=== PATIENT | female | born 1955 | race Caucasian/White ===

== ENCOUNTER 2018-03-08 12:43 | Observation (INO) | payer OTHER ==
[2018-03-08] MEDS ORDERED: METHYLPREDNISOLONE 125 MG INJ ONE (13:49)
[2018-03-08] MEDS ORDERED: IPRATROPIUM BROM 0.5MG/2.5ML ONE (13:49)
[2018-03-08] MEDS ORDERED: OSELTAMIVIR 75 MG CAP ONE (13:49)
[2018-03-08] MEDS ORDERED: VANCOMYCIN 1 GM/250 ML BAG ONE (13:49)
[2018-03-08] MEDS ORDERED: ALBUTEROL 2.5 MG/3 ML NEB SOL ONE (13:49)
[2018-03-08] MEDS ORDERED: NA CHLORIDE 0.9% 1,000 ML ONE (13:49)
[2018-03-08] MEDS ORDERED: CEFTRIAXONE/SWI 1gm 1 GM/10 ML SYR ONE (13:50)
[2018-03-08 13:51] LABS: Absolute Lymphocytes (CBC) 1.6 K/uL (0.7-4.9); Absolute Monocytes 0.3 K/uL (0.1-1.3); Absolute Neutrophil 1.5 K/uL (1.8-8.0); Basophils % 0.4 % (0-1.3); Eosinophils % 0.5 % (0-4.4); Hematocrit 41.7 % (36.0-45.0); Lymphocytes % 45.9 % (15.3-44.8); MPV 7.9 fL (7.6-11.3); RBC Red Blood Cell Count 4.47 M/uL (3.86-4.86)
[2018-03-08 13:55] LABS: Protime INR 0.95
[2018-03-08 14:08] LABS: ALT/SGPT 46 U/L (12-78); AST/SGOT 44 U/L (15-37); Albumin 3.3 g/dL (3.4-5.0); Alkaline Phosphatase 115 U/L (45-117); BUN Blood Urea Nitrogen 14 mg/dL (7-18); Bicarbonate 28 mmol/L (21-32); Bilirubin Direct 0.3 mg/dL (0-0.2); Bilirubin Total 0.7 mg/dL (0.2-1.0); CKMB Creatine Kinase MB < 1.0 ng/mL (0.3-3.6); Creatine Phosphokinase 19 U/L (26-192); Glucose Level 99 mg/dL (74-106); Lipase 263 U/L (73-393); Magnesium 1.8 mg/dL (1.8-2.4); NT PRO-BNP 331 pg/mL (<125); Protein, Total 8.1 g/dL (6.4-8.2); Sodium Level 141 mmol/L (136-145); Troponin (Emerg Dept Use Only) < 0.02 ng/mL (0.0-0.045)
--- NOTE | 2018-03-08 14:56 | RAD REPORT ---
EXAM DESCRIPTION: RAD - Chest Single View - 03/08/2018 2:50 pm CLINICAL HISTORY: Shortness of breath, chest pain, recent flu diagnosis COMPARISON: April 2016 TECHNIQUE: AP portable chest image was obtained 1441 hours . FINDINGS: No peripheral mass or consolidation seen. No failure findings. Interstitial markings are p rominent, increased over the prior study. This would be consistent with a viral infiltrate in the acu te clinical setting. Progressive fibrosis would be possible as well. Heart size is upper normal to sl ightly enlarged. Vasculature is mildly prominent compared to the the 2017 study. No measurable pleura l effusion and no pneumothorax. No acute bony abnormality seen. No acute aortic findings suspected. IMPRESSION: No focal consolidation or mass to suspect bacterial pneumonia. Interstitial lung disease is present throughout both lung salcedo increased over 2017. This would be c onsistent with the recent viral infiltrate diagnosis.
--- NOTE | 2018-03-08 15:06 | EDPHYS ---
Physician Documentation [facility] Name: Gosia Thornton Age: 62 yrs Sex: Female : 1955 Arrival Date: 03/08/2018 Time: 12:45 Bed 6 Private MD: ED Physician Genny Contreras HPI: 03/08 14:09 This 62 yrs old Female presents to ER via Ambulatory with complaints of ma2 Breathing Difficulty. 14:09 Onset: The symptoms/episode began/occurred suddenly, gradually, 2 day(s) ago. ma2 Associated signs and symptoms: Pertinent negatives:. Associated signs and symptoms: Pertinent positives: productive cough, Pertinent negatives: diaphoresis, dizziness, hemoptysis, nausea. Severity of symptoms: At their worst the symptoms were moderate in the emergency department the symptoms are unchanged. The patient has experienced a previous episode. had + flu 3 days ago takes z-packs, here with worsening sob and cough . Historical: - Allergies: 12:57 Codeine; sv - PMHx: 12:57 Anxiety; chronic hip pain; Depression; Hepatitis C; Kidney stones; RLS; sv - PSHx: 12:57 kidney stone removal; rectum did not open when born; neck surgery; Hysterectomy; sv Cholecystectomy; - Immunization history:: Adult Immunizations up to date. - Social history:: Patient/guardian denies using alcohol, street drugs, The patient lives with family. - Family history:: not pertinent. ROS: 14:09 Constitutional: Negative for fever, chills, and weight loss, Neck: Negative for injury, ma2 pain, and swelling, Cardiovascular: Negative for chest pain, palpitations, and edema, Abdomen/GI: Negative for abdominal pain, nausea, diarrhea, and constipation. 14:09 Respiratory: Positive for cough, dyspnea on exertion, Negative for orthopnea, wheezing. 14:09 All other systems are negative. Exam: 14:09 Constitutional: This is a well developed, well nourished patient who is awake, alert, ma2 and in no acute distress. Neck: Trachea midline, no thyromegaly or masses palpated, and no cervical lymphadenopathy. Supple, full range of motion without nuchal rigidity, or vertebral point tenderness. No Meningismus. Chest/axilla: Normal chest wall appearance and motion. Nontender with no deformity. No lesions are appreciated. Cardiovascular: Regular rate and rhythm with a normal S1 and S2. No gallops, murmurs, or rubs. Normal PMI, no JVD. No pulse deficits. 14:09 Respiratory: moderate respiratory distress is noted, Respirations: labored breathing, Breath sounds: rhonchi, + upper airway congestion. Respiratory rate: 22 Vital Signs: 12:56 BP 168 / 85; Pulse 73; Resp 24; Temp 98.5; Pulse Ox 93% ; Weight 83.91 kg; Height 5 ft. sv 5 in. (165.10 cm); Pain 5/10; 16:51 BP 140 / 71; Pulse 90; Resp 24; Pulse Ox 96% on 2 lpm NC; Pain 4/10; ss 12:56 Body Mass Index 30.79 (83.91 kg, 165.10 cm) sv MDM: 13:17 Patient medically screened. ma2 14:09 Differential diagnosis: Anemia Anxiety Reaction CHF exacerbation, Chronic Obstructive ma2 Pulmonary Disease pneumonia, reactive airway disease. Antibiotic administration: 15:03 Data reviewed: vital signs, nurses notes, radiologic studies. Counseling: I had a ma2 detailed discussion with the patient and/or guardian regarding: the historical points, exam findings, and any diagnostic results supporting the discharge/admit diagnosis, the presence of at least one elevated blood pressure reading (>120/80) during this emergency department visit, the need for further work-up and treatment in the hospital. ED course: discussed with dr. headley . 03/08 13:22 Order name: Blood Culture Adult (2) 03/08 13:22 Order name: BMP; Complete Time: 14:20 03/08 13:22 Order name: CBC with Diff 03/08 13:22 Order name: Ckmb; Complete Time: 14:20 03/08 13:22 Order name: CPK; Complete Time: 14:20 03/08 13:22 Order name: D-Dimer; Complete Time: 14:20 03/08 13:22 Order name: Hepatic Function; Complete Time: 14:20 03/08 13:22 Order name: Lipase; Complete Time: 14:20 03/08 13:22 Order name: Magnesium; Complete Time: 14:20 03/08 13:22 Order name: NT PRO-BNP; Complete Time: 14:20 03/08 13:22 Order name: PT-INR; Complete Time: 14:20 wa2 03/08 13:22 Order name: Ptt, Activated; Complete Time: 14:20 wa2 03/08 13:22 Order name: Troponin (emerg Dept Use Only); Complete Time: 14:20 wa2 03/08 13:22 Order name: XRAY CXR (1 view); Complete Time: 15:02 wa2 03/08 13:58 Order name: Manual Differential EDMS 03/08 16:10 Order name: Basic Metabolic Panel EDMS 03/08 16:10 Order name: Basic Metabolic Panel EDMS 03/08 16:10 Order name: CBC with Automated Diff EDMS 03/08 16:10 Order name: CBC with Automated Diff EDMS 03/08 16:10 Order name: NT PRO-BNP EDTN 03/08 16:10 Order name: NT PRO-BNP [facility] 03/08 16:10 Order name: Troponin I EDTN 03/08 16:11 Order name: Troponin I [facility] 03/08 16:11 Order name: Troponin I [facility] 03/08 13:06 Order name: EKG; Complete Time: 13:06 sv 03/08 13:06 Order name: EKG - Nurse/Tech; Complete Time: 13:57 sv 03/08 13:22 Order name: Cardiac monitoring; Complete Time: 13:52 wa2 03/08 13:22 Order name: IV Saline Lock; Complete Time: 13:53 wa2 03/08 13:22 Order name: Labs collected and sent; Complete Time: 13:53 [facility] 03/08 13:22 Order name: O2 Per Protocol; Complete Time: 13:53 wa2 03/08 13:22 Order name: O2 Sat Monitoring; Complete Time: 13:53 [facility] 03/08 16:10 Order name: Heart Healthy EDTN 03/08 16:10 Order name: EKG Electrocardiogram EDTN 03/08 16:10 Order name: EKG Electrocardiogram EDTN Administered Medications: 13:39 Drug: SOLU-Medrol 125 mg Route: IVP; Site: right antecubital; ss 14:21 Follow up: Response: No adverse reaction ss 13:51 Drug: Albuterol 2.5 mg Route: Inhalation; ss 13:51 Drug: AtroVENT Aerosol 0.5 mg Route: Inhalation; ss 13:51 Drug: Tamiflu 75 mg Route: PO; ss 14:21 Follow up: Response: No adverse reaction ss 13:54 Drug: NS 0.9% 1000 ml Route: IV; Rate: 1 bolus; Site: right antecubital; ss 14:21 Drug: Rocephin 1 grams Route: IV; Rate: calculated rate; Site: right antecubital; ss 15:27 Follow up: IV Status: Completed infusion ss 14:45 Drug: Albuterol 2.5 mg Route: Inhalation; ss 14:45 Drug: vancoMYCIN 1 grams Route: IVPB; Infused Over: 2 hrs; Site: right antecubital; ss 14:46 Drug: Albuterol 2.5 mg {Note: given now per Dr. Dover.} Route: Inhalation; ss 14:46 Drug: AtroVENT Aerosol 0.5 mg Route: Inhalation; ss 14:46 Drug: AtroVENT Aerosol 0.5 mg {Note: administered now per Dr. Dover.} Route: ss Inhalation; Disposition: 03/08/18 15:05 Hospitalization ordered by Moreno Patrick for Observation. Preliminary diagnosis is Chronic obstructive pulmonary disease with (acute) exacerbation. - Bed requested for Telemetry/MedSurg (observation). - Status is Observation. iw - Condition is Stable. - Problem is new. - Symptoms have improved. UTI on Admission? No Signatures: Dispatcher [employer] EDTN Heather Deal Stephanie, RN RN sv Williams, Irene, RN RN iw Smirch, Shelby, RN RN ss Alzahri, Mohammad, MD MD ma2 Corrections: (The following items were deleted from the chart) 14:44 13:36 BLOOD CULTURE*+[id number].LAB.BRZ ordered. [facility] EDTN 16:24 15:05 Hospitalization Ordered by Moreno Patrick MD for Observation. Preliminary diagnosis bd is Chronic obstructive pulmonary disease with (acute) exacerbation. Bed requested for Telemetry/MedSurg (observation). Status is Observation. Condition is Stable. Problem is new. Symptoms have improved. UTI on Admission? No. ma2 17:42 16:24 03/08/2018 15:05 Hospitalization Ordered by Moreno Patrick MD for Observation. iw Preliminary diagnosis is Chronic obstructive pulmonary disease with (acute) exacerbation. Bed requested for Telemetry/MedSurg (observation). Status is Observation. Condition is Stable. Problem is new. Symptoms have improved. UTI on Admission? No. bd
--- NOTE | 2018-03-08 15:06 | ER ---
Nurse's Notes [facility] Name: Gosia Thornton Age: 62 yrs Sex: Female : 1955 Arrival Date: 03/08/2018 Time: 12:45 Bed 6 Private MD: Diagnosis: Chronic obstructive pulmonary disease with (acute) exacerbation Presentation: 03/08 12:55 Presenting complaint: Patient states: SOB and chest pain has increased since Thursday sv when she was dx with influenza, sent home with Tamiflu and Azithromycin. Transition of care: patient was not received from another setting of care. Onset of symptoms was March 05, 2018. Care prior to arrival: None. 12:55 Method Of Arrival: Ambulatory sv 12:55 Acuity: CONCEPCION 3 sv Historical: - Allergies: 12:57 Codeine; sv - PMHx: 12:57 Anxiety; chronic hip pain; Depression; Hepatitis C; Kidney stones; RLS; sv - PSHx: 12:57 kidney stone removal; rectum did not open when born; neck surgery; Hysterectomy; sv Cholecystectomy; - Immunization history:: Adult Immunizations up to date. - Social history:: Patient/guardian denies using alcohol, street drugs, The patient lives with family. - Family history:: not pertinent. Screenin:55 Abuse screen: Denies threats or abuse. Denies injuries from another. Nutritional ss screening: No deficits noted. Tuberculosis screening: Never had TB. Fall Risk None identified. Assessment: 13:15 General: Appears uncomfortable, Behavior is calm, cooperative, Reports feeling ill for ss > 3 days. Pain: Complains of pain in chest, head in entire Pain currently is 6 out of 10 on a pain scale. Quality of pain is described as aching, "tight" Pain began 3-4 days ago Is continuous, Aggravated by coughing. Neuro: Level of Consciousness is awake, alert, obeys commands, Oriented to person, place, time, situation, Speech is normal. Cardiovascular: Heart tones S1 S2 present Capillary refill < 3 seconds is brisk in left fingers Rhythm is sinus rhythm. Respiratory: Reports shortness of breath cough that is hacking, persistent since x 4-5 days Airway is patent Respiratory effort is even, labored, Breath sounds are coarse bilaterally. Breath sounds with wheezes bilaterally. GI: Abdomen is non-distended, Bowel sounds present X 4 quads. Patient currently denies abdominal pain, diarrhea, nausea. : No signs and/or symptoms were reported regarding the genitourinary system. EENT: Oral mucosa is moist. Throat is clear. Derm: Skin is intact, is healthy with good turgor, Skin is dry, Skin is pink, warm \\T\\ dry. normal. Musculoskeletal: Circulation, motion, and sensation intact. Range of motion: intact in all extremities, Swelling absent. 14:15 Reassessment: Patient appears in no apparent distress at this time. Patient and/or ss family updated on plan of care and expected duration. Pain level reassessed. Patient states feeling better. Patient states symptoms have improved. Respiratory: Breath sounds are coarse bilaterally. 15:20 Reassessment: Patient appears in no apparent distress at this time. Patient and/or ss family updated on plan of care and expected duration. Pain level reassessed. Patient is alert, oriented x 3, equal unlabored respirations, skin warm/dry/pink. wheezing has diminished, but still present. Pt is aware of admission to hospital. Awaiting room assignment. Patient states feeling better. Patient states symptoms have improved. 16:20 Reassessment: Patient appears in no apparent distress at this time. No changes from ss previously documented assessment. Patient and/or family updated on plan of care and expected duration. Pain level reassessed. Patient is alert, oriented x 3, equal unlabored respirations, skin warm/dry/pink. Patient states feeling better. 16:50 Reassessment: attempted to call report. Nurse is reportedly busy at the moment and will ss call back momentarily. Vital Signs: 12:56 BP 168 / 85; Pulse 73; Resp 24; Temp 98.5; Pulse Ox 93% ; Weight 83.91 kg; Height 5 ft. sv 5 in. (165.10 cm); Pain 5/10; 16:51 BP 140 / 71; Pulse 90; Resp 24; Pulse Ox 96% on 2 lpm NC; Pain 4/10; ss 12:56 Body Mass Index 30.79 (83.91 kg, 165.10 cm) sv ED Course: 12:45 Patient arrived in ED. mr 12:56 Triage completed. sv 12:57 Arm band placed on. sv 13:09 Kelsea Padilla, WALTER is Primary Nurse. ss 13:13 EKG done, by nuclear medicine chief technologist. reviewed by Genny Contreras MD. at1 13:17 Genny Contreras MD is Attending Physician. ma2 13:30 Inserted saline lock: 22 gauge in right antecubital area, using aseptic technique. ss Blood collected. 13:55 Patient has correct armband on for positive identification. Bed in low position. Call light in reach. voice systems engineer on. Pulse ox on. NIBP on. Warm blanket given. 14:49 X-ray completed. Portable x-ray completed in exam room. Patient tolerated procedure mh1 well. 14:51 XRAY CXR (1 view) In Process Unspecified. EDMS 15:04 Moreno Patrick MD is Hospitalizing Provider. ma2 Administered Medications: 13:39 Drug: SOLU-Medrol 125 mg Route: IVP; Site: right antecubital; ss 14:21 Follow up: Response: No adverse reaction ss 13:51 Drug: Albuterol 2.5 mg Route: Inhalation; ss 13:51 Drug: AtroVENT Aerosol 0.5 mg Route: Inhalation; ss 13:51 Drug: Tamiflu 75 mg Route: PO; ss 14:21 Follow up: Response: No adverse reaction ss 13:54 Drug: NS 0.9% 1000 ml Route: IV; Rate: 1 bolus; Site: right antecubital; ss 14:21 Drug: Rocephin 1 grams Route: IV; Rate: calculated rate; Site: right antecubital; ss 15:27 Follow up: IV Status: Completed infusion ss 14:45 Drug: Albuterol 2.5 mg Route: Inhalation; ss 14:45 Drug: vancoMYCIN 1 grams Route: IVPB; Infused Over: 2 hrs; Site: right antecubital; ss 14:46 Drug: Albuterol 2.5 mg {Note: given now per Dr. Dover.} Route: Inhalation; ss 14:46 Drug: AtroVENT Aerosol 0.5 mg Route: Inhalation; ss 14:46 Drug: AtroVENT Aerosol 0.5 mg {Note: administered now per Dr. Dover.} Route: ss Inhalation; Outcome: 15:05 Decision to Hospitalize by Provider. ma2 17:42 Patient left the ED. iw Signatures: Dispatcher [employer] EDMS Marquita Ferguson RN RN sv Rivera, Mary mr Harvey, Martha mh1 Keri Osman RN RN Kelsea Padilla RN RN ss Jennifer Nails, immigration judge EKG Tat1 Genny Contreras MD MD ma2 Corrections: (The following items were deleted from the chart) 12:58 12:55 Presenting complaint: Patient states: SOB has increased since Thursday when she was sv dx with influenza, sent home with Tamiflu and Azithromycin. sv 15:20 13:15 Respiratory: Reports shortness of breath cough that is hacking, persistent since ss x 4-5 days Airway is patent Respiratory effort is even, labored, Breath sounds are coarse bilaterally. ss
[2018-03-08 15:41] LABS: Blood Morphology Comment NOT SEEN (NOT SEEN); Platelet Estimate ADEQ
[2018-03-08] MEDS ORDERED: ACETAMINOPHEN 500 MG TAB PO PRN (16:06)
[2018-03-08] MEDS: METHYLPREDNISOLONE 40 MG INJ IV SCH (18:40)
[2018-03-08 18:42] VITALS: BMI 30.7
--- NOTE | 2018-03-08 20:49 | EKG ---
Test Date: 2018-03-08 Test Time: 13:02:58 Engineering Research Manager: TARSHA MEASUREMENT RESULTS: Intervals: Rate: 70 CO: 130 QRSD: 88 QT: 400 QTc: 432 [place]: P: 64 CO: 130 QRS: 18 T: 69 INTERPRETIVE STATEMENTS: Sinus rhythm with premature atrial complexes Otherwise normal ECG Compared to ECG 05/05/2016 06:51:45 Atrial premature complex(es) now present Electronically Signed On 03-08-18 20:47:54 HUMAN RESOURCES CLERK by Damian Aguirre
[2018-03-09] MEDS: METHYLPREDNISOLONE 40 MG INJ IV SCH ×3 (00:24→17:06)
[2018-03-09 06:03] LABS: Absolute Lymphocytes (CBC) 0.6 K/uL (0.7-4.9); Absolute Monocytes 0.1 K/uL (0.1-1.3); Absolute Neutrophil 2.6 K/uL (1.8-8.0); Basophils % 0.4 % (0-1.3); Hematocrit 37.5 % (36.0-45.0); Lymphocytes % 18.3 % (15.3-44.8); MPV 7.8 fL (7.6-11.3); Monocytes % 2.5 % (3.3-12.3); RBC Red Blood Cell Count 4.01 M/uL (3.86-4.86)
--- NOTE | 2018-03-09 09:19 | P.HP ---
Certification for Inpatient Patient admitted to: Observation With expected LOS: <2 Midnights Patient will require the following post-hospital care: None Practitioner: I am a practitioner with admitting privileges, knowledge of patient current condition, hospital course, and medical plan of care. Services: Services provided to patient in accordance with Admission requirements found in Title 42 Section 412.3 of the Code of Federal Regulations Patient History Date of Service: 03/09/18 Primary Care Provider: Kelvin Villatoro Reason for admission: Asthma exacerbation secondary to the flu History of Present Illness: Patient of Jessica Villatoro. Was seen in the office on Thursday where she was diagnoised with Influenza type A. Started on tamiflu and zithromax. She was given a breathing treatment in the office. Was feeling better and went home. Unfortunately the patient worsened over the weekend. Went to the ER on Thursday. Was found to be wheezing. Clear chest xray. However worsen interstial markings. She has not been smokings. States she has only smoked 2 packs in her entire life. 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 Was not cleaning this weekend though. She denies nasal congestion. Has been having a non productive cough. Which is worse at night. The patient Has been taking her medications. States she has been having some increased shortness of breath for the past few months. When questioned closely she does agree it is more of a tightness in her chest. She does have a home nebulizer kit. Not a hand held albuterol kit. Allergies codeine Allergy (Verified 05/05/16 08:21) Hives Hydrocodone-Acetaminophen Allergy (Mild, Uncoded 03/08/18 18:33) Itching Home Medications: Azithromycin 250 mg PO DAILY 03/08/18 Buspirone HCl [Buspar] 10 mg PO BID 03/08/18 Losartan Potassium 25 mg PO BID 03/08/18 Meloxicam 15 mg PO DAILY 03/08/18 Oseltamivir [Tamiflu] 75 mg PO DAILY 03/08/18 Paroxetine HCl [Paxil] 20 mg PO DAILY 03/08/18 Ropinirole HCl 1 mg PO TID 03/08/18 Albuterol Sulfate [Ventolin Hfa] 8 gm IH Q8HP PRN #1 [id number] 03/09/18 Prednisone [Sterapred Ds] 10 mg PO BID #9 tab.ds.pk 03/09/18 - Past Medical/Surgical History Diabetic: No -: Restless legs syndrome -: anxiety -: depression -: hip pain (bilateral) -: hep c -: hypertension -: Kidney stone 1994 -: Colostomy in infant - Family History Father -: Heart disease Mother -: Hypertension - Social History Smoking Status: Never smoker Alcohol use: Yes CD- Drugs: Yes Caffeine use: Yes Place of Residence: Home Review of Systems 10-point ROS is otherwise unremarkable Respiratory: Cough, Dry, SOB with Excertion, Wheezing Physical Examination - Vital Signs Temperature: 97.6 F Blood Pressure: 159/72 Pulse: 67 Respirations: 18 Pulse Ox (%): 98 - Physical Exam General: Alert, In no apparent distress HEENT: Atraumatic, PERRLA, Mucous membr. moist/pink, EOMI, Sclerae nonicteric Neck: Supple, 2+ carotid pulse no bruit, No LAD, Without JVD or thyroid abnormality Respiratory: Clear to auscultation bilaterally, Normal air movement Cardiovascular: Regular rate/rhythm, Normal S1 S2 Gastrointestinal: Normal bowel sounds, No tenderness Musculoskeletal: No tenderness Integumentary: No rashes Neurological: Normal gait, Normal speech, Normal strength at 5/5 x4 extr, Normal tone, Normal affect Lymphatics: No axilla or inguinal lymphadenopathy - Studies Laboratory Data (last 24 hrs) 03/08/18 13:30: PT 11.2, INR 0.95, APTT 28.4 03/08/18 13:30: WBC 3.4 L, Hgb 14.0, Hct 41.7, Plt Count 239 03/08/18 13:30: Sodium 141, Potassium 4.0, BUN 14, Creatinine 0.66, Glucose 99, Magnesium 1.8, Total Bilirubin 0.7, AST 44 H, ALT 46, Alkaline Phosphatase 115, Lipase 263 Assessment and Plan - Problems (Diagnosis) (1) Asthma exacerbation Current Visit: Yes Status: Acute Plan: Patient is doing well. No longer wheezing. Will take her off oxygen. If she continues to improve will send her home with oral steroids and albuterol HFA. Have spent 20 min discussing asthma. Proper inhaler technique. to monitor the amount of times she uses the inhaler. Will have her follow up with Kelvin Villatoro. If she needs to use repeatedly we can start her on a advair or symbicort Qualifiers: Asthma severity: moderate Asthma persistence: unspecified Qualified Code( s): J45.901 - Unspecified asthma with (acute) exacerbation (2) Influenza A Current Visit: Yes Status: Acute Plan: Continue the patient home tamiflu. (3) HTN (hypertension) Current Visit: Yes Status: Acute Plan: restart home medications. Adjust as necessary - Advance Directives Does patient have a Living Will: No Does patient have a Durable POA for Healthcare: No - Code Status/Comfort Care Code Status Assessed: Yes Code Status: Full Code Physician Review: Patient Assessed, Agree with Above Assessment and Plan Critical Care: No Time Spent Managing Pts Care (In Minutes): 45
[2018-03-09] MEDS: ASPIRIN EC 81 MG TAB PO SCH (10:41)
[2018-03-09] MEDS: BUSPIRONE HCL 10 MG PO SCH ×2 (11:52→20:36)
[2018-03-09] MEDS: Losartan Potassium 25 MG TABLET PO SCH ×2 (11:53→20:35)
[2018-03-09] MEDS: PAROXETINE HCL 20 MG PO SCH (11:53)
[2018-03-09] MEDS: Azithromycin 250 MG TABLET PO SCH (11:54)
[2018-03-09] MEDS: OSELTAMIVIR 75 MG PO SCH (11:54)
[2018-03-09] MEDS ORDERED: ENOXAPARIN 40 MG/0.4 ML SQ SCH (17:00)
[2018-03-09] MEDS: ALBUTEROL 2.5 MG/3 ML NEB SOL NEB PRN (20:45)
[2018-03-09] MEDS: IPRATROPIUM BROM 0.5MG/2.5ML NEB PRN (20:45)
[2018-03-10] MEDS: METHYLPREDNISOLONE 40 MG INJ IV SCH ×2 (00:39→08:26)
[2018-03-10] MEDS: ALBUTEROL 2.5 MG/3 ML NEB SOL NEB PRN (03:32)
[2018-03-10] MEDS: IPRATROPIUM BROM 0.5MG/2.5ML NEB PRN (03:32)
[2018-03-10] MEDS ORDERED: PANTOPRAZOLE 40MG TABLET PO SCH (06:30)
[2018-03-10] MEDS: ASPIRIN EC 81 MG TAB PO SCH (08:25)
[2018-03-10] MEDS: Azithromycin 250 MG TABLET PO SCH (08:26)
[2018-03-10] MEDS: PAROXETINE HCL 20 MG PO SCH (08:27)
[2018-03-10] MEDS: BUSPIRONE HCL 10 MG PO SCH (08:29)
[2018-03-10] MEDS: OSELTAMIVIR 75 MG PO SCH (08:29)
[2018-03-10] MEDS: Losartan Potassium 25 MG TABLET PO SCH (08:30)
--- NOTE | 2018-03-10 08:51 | P.DS ---
Admission Date: 03/08/18 Discharge Date: 03/10/18 Primary Care Provider: Kelvin Villatoro Disposition: ROUTINE DISCHARGE Reason for Admission: Asthma exacerbation secondary to the flu - Problems (1) Asthma exacerbation Current Visit: Yes Status: Acute Qualifiers: Asthma severity: moderate Asthma persistence: unspecified Qualified Code( s): J45.901 - Unspecified asthma with (acute) exacerbation (2) Influenza A Current Visit: Yes Status: Acute (3) HTN (hypertension) Current Visit: Yes Status: Acute Qualifiers: Hypertension type: essential hypertension Qualified Code(s): I10 - Essential (primary) hypertension Brief History of Present Illness: Patient of Jessica Villatoro. Was seen in the office on Thursday where she was diagnoised with Influenza type A. Started on tamiflu and zithromax. She was given a breathing treatment in the office. Was feeling better and went home. Unfortunately the patient worsened over the weekend. Went to the ER on Thursday. Was found to be wheezing. Clear chest xray. However worsen interstial markings. She has not been smokings. States she has only smoked 2 packs in her entire life. 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 Was not cleaning this weekend though. She denies nasal congestion. Has been having a non productive cough. Which is worse at night. The patient Has been taking her medications. States she has been having some increased shortness of breath for the past few months. When questioned closely she does agree it is more of a tightness in her chest. She does have a home nebulizer kit. Not a hand held albuterol kit. Hospital Course: Patient was admitted. Did well with steroids and breathing treatments. Will discharge home. Has a home nebulizer. Will provide a HFA albuterol with her. Start a tapering dose of prednisone. Follow up in 1-2 weeks with Isabel Villatoro. She needs to monitor her usage of the HFA as this will determine her asthma control. Weather or not she needs mantainence medications. Vital Signs/Physical Exam: Temp Pulse Resp BP Pulse Ox 97.4 F 84 18 117/75 94 03/10/18 04:00 03/10/18 04:00 03/10/18 04:00 03/10/18 04:00 03/10/18 04:00 General: Alert, In no apparent distress HEENT: Atraumatic, PERRLA, EOMI Neck: Supple, JVD not distended Respiratory: Clear to auscultation bilaterally, Normal air movement Cardiovascular: Regular rate/rhythm, Normal S1 S2 Gastrointestinal: Normal bowel sounds, No tenderness Musculoskeletal: No tenderness Integumentary: No rashes Neurological: Normal speech, Normal tone, Normal affect Lymphatics: No axilla or inguinal lymphadenopathy Laboratory Data at Discharge: WBC 3.3 K/uL (4.3-10.9) L 03/09/18 05:50 Hgb 12.7 g/dL (12.0-15.0) 03/09/18 05:50 Hct 37.5 % (36.0-45.0) 03/09/18 05:50 Plt Count 207 K/uL (152-406) 03/09/18 05:50 PT 11.2 SECONDS (9.5-12.5) 03/08/18 13:30 INR 0.95 03/08/18 13:30 APTT 28.4 SECONDS (24.3-36.9) 03/08/18 13:30 Sodium 141 mmol/L (136-145) 03/09/18 05:50 Potassium 5.0 mmol/L (3.5-5.1) 03/09/18 05:50 BUN 17 mg/dL (7-18) 03/09/18 05:50 Creatinine 0.71 mg/dL (0.55-1.3) 03/09/18 05:50 Glucose 146 mg/dL (74-106) H 03/09/18 05:50 Magnesium 1.8 mg/dL (1.8-2.4) 03/08/18 13:30 Total Bilirubin 0.7 mg/dL (0.2-1.0) 03/08/18 13:30 AST 44 U/L (15-37) H 03/08/18 13:30 ALT 46 U/L (12-78) 03/08/18 13:30 Alkaline Phosphatase 115 U/L (45-117) 03/08/18 13:30 Troponin I < 0.02 ng/mL (0.0-0.045) 03/08/18 20:55 Lipase 263 U/L (73-393) 03/08/18 13:30 Home Medications: Azithromycin 250 mg PO DAILY 03/08/18 Buspirone HCl [Buspar] 10 mg PO BID 03/08/18 Losartan Potassium 25 mg PO BID 03/08/18 Meloxicam 15 mg PO DAILY 03/08/18 Oseltamivir [Tamiflu] 75 mg PO DAILY 03/08/18 Paroxetine HCl [Paxil] 20 mg PO DAILY 03/08/18 Ropinirole HCl 1 mg PO TID 03/08/18 Albuterol Sulfate [Ventolin Hfa] 8 gm IH Q8HP PRN #1 hfa.aer.ad 03/09/18 Prednisone [Sterapred Ds] 10 mg PO BID #9 tab.ds.pk 03/09/18 New Medications: Albuterol Sulfate [Ventolin Hfa] 8 gm IH Q8HP PRN #1 hfa.aer.ad PRN Reason: Shortness Of Breath Prednisone [Sterapred Ds] 10 mg PO BID #9 tab.ds.pk Diet: Regular Followup: Jessica Villatoro [employer]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
[2018-03-10 09:40] VITALS: O2SAT 95
[2018-03-10 15:22] VITALS: BP 166/76; TEMP 97.7
== END 2018-03-10 14:39 | disposition home or self-care (01) ==
LOC: ER 12:43 → SUPCPDRO 12:43 → ERHOLD 16:06 → 2ND 17:27
PROVIDERS: ADMIT Internal Medicine; ATTEND Internal Medicine
DX: J45.901 Unspecified asthma with (acute) exacerbation (principal); J09.X2 Influenza due to identified novel influenza A virus with other respiratory manifestations; I10 Essential (primary) hypertension; G25.81 Restless legs syndrome; F32.9 Major depressive disorder, single episode, unspecified
CPT/HCPCS: 36415; 71045; 80048; 80076; 82550; 82553; 83690; 83735; 83880; 84484; 85025; 85379; 85610; 85730; 87040; 93005; 94640; 94760; 96365; 96375; 99285; G0378; J0696; J1650; J2920; J2930; J3370; J7030

== ENCOUNTER 2020-02-27 17:33 | Inpatient (IN) | payer OTHER ==
--- OUTSIDE RECORDS SUMMARY | 2020-02-27 17:35 | XMS REPORT | Clinical Summary ---
:1955 Author Organization [facility] Address [address] [place] [address] Care Team Providers Name Role Phone Tono Luz MD Primary Care Provider Allergies Active Allergy Reactions Severity Noted Date Comments Codeine Swelling 11/30/2019 Medications Medication Sig Dispensed Refills Start Date End Date Status rOPINIRole (REQUIP) 1 Take 1 mg by 0 Active MG tablet mouth 3 (three) times a day. escitalopram (LEXAPRO) Take 20 mg by 0 Active 20 MG tablet mouth nightly. losartan (COZAAR) 50 TAKE 2 TABLETS BY 180 tablet 3 12/08/2019 Active MG tablet MOUTH EVERY DAY Additional Information Patient taking differently: 50 mg oral 2 times daily, Informant: Self, Reported on 12/20/2019 furosemide (LASIX) 20 TAKE 1 TABLET 30 tablet 0 02/02/2020 Active mg tablet BY MOUTH EVERY DAY losartan (COZAAR) 50 Take 50 mg by 0 12/01 Discontinued MG tablet mouth 2 (two) 020 (Reord er) times a day. losartan (COZAAR) 50 Take 2 tablets 60 tablet 6 12/02/2019 Discontinued MG tablet (100 mg total) 020 by mouth daily. chlorthalidone Take 1 tablet 90 tablet 3 12/02/2019 Discontinued (HYGROTEN) 25 MG (25 mg total) 020 (Alternate therapy) tablet by mouth daily for 30 days. HYDROcodone-acetamino Take 1 tablet 40 tablet 0 12/22/201904/04 Discontinued phen (NORCO) 7.5-325 by mouth every 020 mg per 6 (six) hours tabletIndications: as needed for acute pain moderate pain for up to 7 days .acute pain. Max Daily Amount: 4 tablets furosemide (Lasix) 20 Take 1 tablet 30 tablet 0 01/03/202004/04 Discontinued mg tablet (20 mg total) 020 by mouth daily. Active Problems No known active problems Encounters Date Type Specialty Care Team Description 02/22/2020 Telephone Cardiology Norma, Results (Lab Re sults) DILAN Matthews 02/01/2020 Refill Cardiology Amrik Dennis MD 01/03/2020 Office Visit Cardiology Amrik Dennis Essential hyp ertension (Primary Dx); MD Sofiya Mixed hyperlipi demia 01/03/2020 Travel 12/22/2019 Anesthesia Event General Surgery Duane Arthur Chad Edward, MD 12/22/2019 Surgery General Surgery Tono Luz A DEANNA Zhang MD LAPAROSCOPIC VE NTRAL HERNIA WITH MES H 12/22/2019 Hospital Encounter General Surgery Tono Luz MD 12/22/2019 Travel 12/20/2019 Travel 12/20/2019 Orders Only Pre-Admission Vitucci, Pre-op testing Testing [place] (Primary Dx) 12/16/2019 Travel 12/07/2019 Refill Cardiology Amrik Dennis Med Kenan Arriaza MD 12/02/2019 Surgery Procedural Amrik Dennis CV LEFT HEART CATH LV Cardiology MD Sofiya GRAM WITH CORS [[id number] (CPT)] 12/02/2019 Hospital Encounter Procedural Amrik Dennis Chest p jose g Cardiology MD Sofiya unspecified 12/02/2019 Travel 12/01/2019 Hospital Encounter Radiology Tono Luz ed abdominal MD Vicente hernia with obstruction, wi thout gangrene 12/01/2019 Prep for Surgery Cardiology Amrik Dennis MD 12/01/2019 Telephone Cardiology Norma, Scheduling ([facility] DILAN Matthews procedure sched uled) 11/30/2019 Office Visit Cardiology Amrik Dennis Chest pain, u nspecified type (Primary Dx); MD Sofiya Shortness of br eath; Dizziness; Encounter to [facility] 11/30/2019 Prep for Surgery Cardiology Amrik Dennis Chest salena n alondra Arriaza MD breathing (Prim mary Dx) 11/30/2019 Travel 11/28/2019 Travel 11/28/2019 Transcribe Orders Access Tono Luz MD hernia with obstruction, wi thout gangrene (Prima ry Dx) after 02/26/2019 Surgical History Surgery Date Site/Laterality Comments COLOSTOMY many years ago LITHOTRIPSY CARDIAC CATHETERIZATION 12/02/2019 Radial Procedur e: CV LEFT HEART CATH LV GRAM WIT H CORS; Surgeon: Amrik Dennis MD; Locatio n: [facility] FLIGHT KITCHEN MANAGER [facility] E LOCATION; Servi ce: Cardiology; Lat erality: Radial; KIDNEY STONE SURGERY 02/09/1994 - 02/08/1995 ANUS SURGERY during childhood HERNIA REPAIR Medical History Medical History Date Comments Hypertension Depression Restless leg Shortness of breath 2 months ago Sleep apnea 2014 CPAP (continuous positive airway pressure) dependence 2014 Snoring Many years Claustrophobia Anxiety Don t know Rheumatoid arthritis (HCC) 2010 Family History Medical History Relation Name Comments Diabetes Father No Known Problems Maternal Grandfather Breast cancer Maternal Grandmother Atrial fibrillation Mother Heart block Sister Margaux Relation Name Status Comments Father Alive Maternal Grandfather Maternal Grandmother Mother Alive Paternal Grandfather Paternal Grandmother Sister Margaux Social History Tobacco Use Types Packs/Day Years Used Date Never Smoker Smokeless Tobacco: Never Used Alcohol Use Drinks/Week oz/Week Comments Yes 0 Glasses of wine 2.0 2 Cans of beer 0 Shots of liquor 0 Standard drinks or equivalent Alcohol Habits Answer Date Recorded How often do you have a drink containing alcohol? Not asked How many drinks containing alcohol do you have on a typical 1 or 2 11/30/2019 day when you are drinking? How often do you have six or more drinks on one occasion? No t asked Sex Assigned at Date Recorded Not on file Job Start Date Occupation Industry Not on file Not on file Not on file Last Filed Vital Signs Vital Sign Reading Time Taken Comments Blood Pressure 132/63 01/03/2020 1:10 PM EMR TRAINER Pulse 88 01/03/2020 1:10 PM EMR TRAINER Temperature 36.1 C (97 F) 12/22/2019 2:59 PM EMR TRAINER Respiratory Rate 68 12/22/2019 2:59 PM EMR TRAINER Oxygen Saturation 94% 12/22/2019 2:59 PM EMR TRAINER Inhaled Oxygen Concentration - - Weight 94.7 kg (208 lb 12.8 oz) 01/03/2020 1:10 PM EMR TRAINER Height 165.1 cm (5' 5") 01/03/2020 1:10 PM EMR TRAINER Body Mass Index 34.75 01/03/2020 1:10 PM EMR TRAINER Plan of Treatment Date Type Specialty Care Team Description 04/10/2020 [place] [address] [address] [facility] [place] [address] [phone] Health Maintenance Due Date Last Done Comments COVID-19 VACCINE (1 of 2) 1970 CERVICAL CANCER SCREENING 08/20/1975 BREAST CANCER SCREENING 2004 COLONOSCOPY SCREENING 2004 SHINGLES VACCINES (#1) 2004 65+ PNEUMOCOCCAL VACCINE (1 of 1 - PPSV23) 08/20/2019 INFLUENZA VACCINE 09/10/2019 Implants Implanted Type Area Forest Fire Management Officer Device Shelf Model / Identifier Expiration Serial / Date Lot System Fixation Laparo Absorb 30 Fastnr Optifix - [id number] Rony gical N/A: N/A [employer] 04/08/2021 [id number] / Implanted: Qty: 1 on 12/22/2019 at [facility] Implants; / Expanders; [id number] Extenders; Surgical Wires Mesh Hernia Ventralight 4 X 6in Oval - [id number] Surgical N/A: N/A [employer] 07/06/2021 [id number] / Implanted: Qty: 1 on 12/22/2019 at [facility] Mesh or / Tissue [id number] Bar[employer] Plates In Neck Procedures Procedure Name Priority Date/Time Associated Diagnosis Comme nts LIPID PANEL Routine 02/20/2020 8:27 Essential hyper tension Results for this AM EMR TRAINER Mixed hyperlipidemia procedu re are in the results section. IA AN ELECTIVE Routine 12/22/2019 11:52 Results f or this ENDOTRACHEAL AIRWAY AM EMR TRAINER procedur e are in the results section. XI ROBOTIC ASSISTED 12/22/2019 11:26 Other and unspeci fied LAPAROSCOPIC VENTRAL AM EMR TRAINER ventral hernia with HERNIA obstruction, without gangrene Case Notes XI DAVINCI, EST 30 MINS Special Needs XI DAVINCI, EST 30 MINS COVID-19 QUALITATIVE Routine 12/20/2019 12:23 Pre-op testing R esults for this PCR PM EMR TRAINER procedure are i n the results section. CV LEFT HEART CATH LV Routine 12/02/2019 7:59 Chest pain, Re sults for this GRAM WITH CORS AM CDT unspecified procedure are in the results section. LIPID PANEL Routine 12/02/2019 6:14 Results for this AM CDT procedure are i n the results section. ESTIMATED GFR Routine 12/02/2019 6:14 Results fo r this AM CDT procedure are i n the results section. PROTHROMBIN TIME WITH Routine 12/02/2019 6:14 Re sults for this INR AM CDT procedure are i n the results section. PARTIAL THROMBOPLASTIN Routine 12/02/2019 6:14 R esults for this TIME (PTT) AM CDT procedure are i n the results section. HC COMPLETE BLD COUNT Routine 12/02/2019 6:14 Re sults for this W/AUTO DIFF AM CDT procedure are i n the results section. BASIC METABOLIC PANEL Routine 12/02/2019 6:14 Re sults for this AM CDT procedure are i n the results section. ECG 12-LEAD Routine 12/02/2019 5:28 Results for this AM CDT procedure are i n the results section. COVID-19 QUALITATIVE STAT 12/01/2019 11:42 Chest pain on Re sults for this PCR AM CDT breathing procedure are i n the results section. CT ABDOMEN W CONTRAST STAT 12/01/2019 10:52 Unspecified Re sults for this AM CDT abdominal hernia procedure a re in with obstruction, the result s without gangrene section. ESTIMATED GFR Routine 12/01/2019 10:31 Results fo r this AM CDT procedure are i n the results section. POC CREATININE Routine 12/01/2019 10:31 Results f or this AM CDT procedure are i n the results section. ECG 12-LEAD Routine 11/30/2019 1:30 Chest pain, Results for this PM CDT unspecified type procedure are in Shortness of sera ath the results Dizziness section. Encounter to establish care after 02/26/2019 Results Lipid panel (02/20/2020 8:27 AM EMR TRAINER)Only the most recent of2 resultswithin the time period is included. Cholesterol, total 217 (H) <200 mg/dL [facility] [place] HDL cholesterol 65 > OR = 50 [facility] mg/dL [place] Triglycerides 88 <150 mg/dL [facility] [place] LDL cholesterol 133 (H) mg/dL (calc) [facility] calculated Comment: [place] [facility] Reference range: <100 Desirable range <100 mg/dL for primary prevention; <70 mg/dL for patients with CHD or diabetic patients with > or = 2 CHD risk factors. LDL-C is now calculated using the Ashia calculation, which is a validated novel method providi ng better accuracy than the Friedewald equation in the estimation of LDL-C. Sean SNYDER et al. SRIDEVI. 2013;310(19): 8124-9425 (http://education.Breezeworks.TransferGo/faq/BZX527) Cholesterol/HDL 3.3 <5.0 (calc) [facility] Non-HDL cholesterol 152 (H) <130 mg/dL [employer] Comment: (calc) [facility] For patients with diabetes plus 1 major ASCVD risk factor, treating to a non-HDL-C goal of <100 mg/dL (LDL-C of <70 mg/dL) is considered a therapeutic option. Specimen Blood Narrative Performed At FASTING:NO [facility] FASTING: NO Resulting Agency Comment Performing Organization Information: Site ID: [id number] Name: [facility] Address: [address] [place] [id number] Director: Kb Balderas Performing Organization Address City/State/ZIP [place] [address] Airway (12/22/2019 11:52 AM EMR TRAINER) Narrative Performed At Robert Beltran CRNA 12/21 11:52 AM Airway Date/Time: 12/22/2019 11:36 AM Performed by: Robert Beltran CR NA Authorized by: Duane Arthur Location: OR Urgency: Elective Difficult Airway: No Anesthesiologist: Duane Arthur Resident/PROFESSOR OF POULTRY SCIENCE/AA: Robert Beltran ph PROFESSOR OF POULTRY SCIENCE Performed by: resident/PROFESSOR OF POULTRY SCIENCE/AA Preoxygenated with 100% O2: Yes C-spine Precautions Maintained Throughou t: Yes Mask Ventilation: Not attempted (covid precautions) Final Airway Type: Endotracheal airway Final Endotracheal Airway: ETT Cuffed: Yes Technique Used: Direct laryngoscopy Devices/Methods Used in Placement: Int ubating stylet Insertion Site: Oral Blade Type: Bishop Laryngoscope Blade/Videolaryngoscope Pranav de Size: 2 ETT Size (mm): 7.0 Cuff at minimum occlusion pressure: Yes Measured from: Lips ETT to Lips (cm): 21 Placement Verified by: CO2 detection, di rect visualization and equal breath sounds Laryngoscopic view: Grade I - full vie w of glottis Rapid Sequence Induction (RSI): No Modified RSI: No Number of Attempts at Approach: 1 COVID-19 qualitative PCR (12/20/2019 12:23 PM EMR TRAINER)Only the most recent of2 resultswithin the time period is included. Interpretation Negative results do not prec lude 2019-nCoV infection and should not be used as the sole basis for treatment or other patient management decisions. Negative results must be combined with clinical observations, patient history, and epidemiological MANCILLA information. [facility] COVID-19 qualitative Not-Detected Not-Detecte [facility] PCR result d [facility] COVID-19 qualitative See link below for [facility] PCR PDF Lab [facility] ReportComment: Case HOSPITAL Number: [id number] Specimen Nasal swab Performing Organization Address City/State/ZIP Code Phon e Number [facility] DEPARTMENT OF PATHOLOGY AND [address], [place] [address] GENOMIC MEDICINE [facility] [address] [place] [address] [facility] labor expediter procedure (12/02/2019 7:59 AM CDT) Specimen Narrative Performed At This result has an attachment that is no t available. Cardiology Procedure Note [facility] DATE OF PROCEDURE: 12/02/2019 [facility] FLIGHT KITCHEN MANAGER RM 1 INDICATION: Chest pain, unspecified [R07.9] Procedure(s): CV LEFT HEART CATH LV GRAM WITH CORS REFERRING PHYSICIAN: No referring provider defined for this encounter. PERFORMED BY: Dr. Amrik Dennis Surgeon(s) and Role: * Amrik Dennis MD - Primary BRIEF HISTORY: Gosia Thornton is a pleasant 64 y.o.-female with a sig nificant past medical history of HTN, depression, and restless leg s yndrome who presents for evaluation of chest pain ANESTHESIA: Anesthesia type not filed in the log. ESTIMATED BLOOD LOSS: 5 mL TOTAL IV FLUIDS: 125 mL Total Contrast: 80 mL PROCEDURE DETAILS: Left Heart Catheterization After discussion of the potential benefits, risks, and alternatives to the planned procedure the patient gave informed consent. The ASA class was III. The patient was then brought to the cardiac alexandra terization laboratory in a fasted state. The patient was prepped and draped in the usual sterile fashion. Under local anesthesia, vascular access was obtained i n the standard fashion using the modified Seldinger technique. A 6Fr sheath was placed in the right radial artery. All catheters were advanced o gustavo a 0.035" J-tip guidewire under fluoroscopic guidance. Selective coron mary arteriography was then performed using 5Fr JL3.5 catheter to engage the left coronary artery and a 5Fr JR4 catheter to engage the right loan nary artery. Right and left coronary arteriography were performed in jyotsna dard orthogonal views by hand injections of Visipaque. The 5Fr PIG c atheter was used to cross the aortic valve. Left ventricular pressures wer e measured. The aortic valve gradient was measured as the left ventric ular catheter was pulled back across the aortic valve. After reviewing the findings hemostasis of the arteria l access site was achieved with TR band. The patient was transferred to the post procedural care unit for further management. There were no compli cations and the patient tolerated the procedure well. The attending ysician provided personal supervision as tractor operator helper and/ or first coat operator throughout the procedure. Hemodynamics Systolic (mmHg) Diastolic (mmHg) Mean (mmHg) Sat (%) SVC IVC RA RV PA PCWP LV 124 12 28 Ao 125 71 89 Coronary Anatomy DOMINANCE: Right LM: The left main coronary artery arises from the left coronary cusp and gives rise to the left anterior descending artery (LAD ) and the left circumflex artery (LCx). The left main coronary artery is free of angiographically significant disease. LAD: The LAD arises from the left main and gives rise to 2 diagonal branches and septal perforators as it continues along its course in the interventricular groove and to the apex. The LAD has a mid tubular 30% lesion and its branches are free of angiographically s ignificant disease. LCx: The LCx is a non-dominant vessel that arises from the left main. It gives rise to 2 obtuse marginal branches along its cou rse in the atrioventricular groove. The LCx and its branches are free of angiographically significant disease. RCA: The RCA is a dominant vessel that arises from the right coronary cusp. The RCA gives rise to a conus branch, an atrial branch, and an acute marginal branch before bifurcating into the right post eriolateral artery (BARBARA) and posterior descending artery (PDA) at the lev el of the crux. The RCA and its branches are free of angiographically sign ificant disease. COMPLICATIONS: None; patient tolerated the procedure w ell. CONCLUSIONS: - No significant coronary artery disease as detailed a kaci - Elevated left sided filling pressures given LVEDP 28 mmHg - No significant gradient across aortic valve during c atheter pullback - Hemostasis of right radial arteriotomy access site u sing TR band RECOMMENDATIONS: - Transferred to PACU in stable condition - Wean radar band per unit protocol after two hours - No lifting objects > 5lb or soaking acces site in wa ter for 5 days - Continue optimal medical management for primary prev ention per current ACC/AHA guidelines Amrik Dennis MD, MA Structural & Signals Collection Technician [facility] Date: 12/02/2019 Time: 10:57 AM Performing Organization Address City/State/ZIP Code Phon e Number [facility] [address] [place] [address], Estimated GFR (12/02/2019 6:14 AM CDT)Only the most recent of2 resultswithin the time period is included. Estimated GFR 78 mL/min/1.73 [facility] Comment: [facility] THE Catergory Units Interpretation [facility] [place] G1 >=90 Normal or high HOSPITAL G2 60-89 Mildly decreased G3a 45-59 Mildly to moderately decreas ed G3b 30-44 Moderately to severely decre ased G4 15-29 Severely decreased G5 <15 Kidney failure The eGFR was calculated using the Chronic Kidney Disea se Epidemiology Collaboration (CKD-EPI) equation. Interpretation is based on recommendations of the National Kidney Foundation-Kidney Disease Outcomes Ry lity Initiative (NKF-KDOQI) published in 2014. Specimen Plasma Performing Organization Address City/State/ZIP [place] [address], [address] [place], [place] [address] PATHOLOGY AND GENOMIC MEDICINE [facility] THE [address] [facility] [address] Partial thromboplastin time, activated (12/02/2019 6:14 AM CDT) PTT 22.5 (L) 23.0 - 36.0 [facility] Comment: sec [facility] PTT therapeutic range for unfractionated heparin is HOSPITAL 61.0-112.0 seconds which corresponds to Anti-Xa 0.3-0.7 U/ml. Specimen Blood Performing Organization Address City/State/ZIP Code Phon e Number [facility] [place] [address], [address] [place] [address] 5 PATHOLOGY AND GENOMIC MEDICINE [facility] THE [address] [facility] [address] Prothrombin time with INR (12/02/2019 6:14 AM CDT) Prothrombin time 12.3 11.5 - 14.5 [facility] sec [facility] INR 0.9 [facility] Comment: [facility] THE The International Normalized Ratio (INR) is a [facility] monitoring tool for patients who are stable on oral HOSPITAL anticoagulant therapy. An INR of 2.0-3.0 is suggested for deep vein thrombosis/pulmonary embolism. Specimen Blood Performing Organization Address City/[facility] Phon e Number [facility] DEPARTMENT OF [facility], [address] [place] [address] 5 PATHOLOGY AND GENOMIC MEDICINE [facility] THE [address] [facility] [address] CBC with platelet and differential (12/02/2019 6:14 AM CDT) WBC 5.31 4.50 - 11.00 [facility] k/uL [facility] RBC 4.51 4.20 - 5.50 [place] m/uL [facility] HGB 14.3 12.0 - 16.0 [facility] g/dL [facility] HCT 44.0 37.0 - 47.0 % [facility] MCV 97.6 82.0 - 100.0 [facility] fL [facility] MCH 31.7 27.0 - 34.0 pg [facility] MCHC 32.5 31.0 - 37.0 [facility] g/dL [facility] RDW - SD 43.4 37.0 - 55.0 fL [facility] MPV 10.3 8.8 - 13.2 fL [facility] Platelet count 167 150 - 400 k/uL [facility] Nucleated RBC 0.00 /100 WBC [facility] Neutrophils 58.5 39.0 - 69.0 % [facility] Lymphocytes 32.0 25.0 - 45.0 % [facility] Monocytes 7.2 0.0 - 10.0 % [facility] Eosinophils 1.7 0.0 - 5.0 % [facility] Basophils 0.4 0.0 - 1.0 % [facility] Immature granulocytes 0.2Comment: 0.0 - 1.0 % [facility] "Immature [facility]ISM THE granulocytes" [facility] (promyelocytes HOSPITAL , myelocytes, metamyelocytes ) Specimen Plasma Performing Organization Address [facility] Phon e Number [facility] DEPARTMENT OF [facility], [address] [place] [address] 5 PATHOLOGY AND GENOMIC MEDICINE [facility] [address] [facility] [address] Basic metabolic panel (12/02/2019 6:14 AM CDT) Pathologist [facility] Sodium 141 135 - 148 mEq/L [facility] Potassium 4.4 3.5 - 5.0 mEq/L [facility] Chloride 102 98 - 112 mEq/L [facility] CO2 29 24 - 31 mEq/L [facility] Anion gap 10 7 - 15 mEq/L [facility] BUN 25 (H) 8 - 23 mg/dL [facility] Creatinine 0.79 0.50 - 0.90 mg/dL [facility] Glucose 109 (H) 65 - 99 mg/dL [facility] Calcium 10.2 8.8 - 10.2 mg/dL [facility] Specimen Plasma Performing Organization Address City/[facility] Phon e Number T DEPARTMENT OF [facility], [address] [place] [address] 5 PATHOLOGY AND GENOMIC MEDICINE [facility] [address] [facility] [address] ECG 12 lead (12/02/2019 5:28 AM CDT)Only the most recent of2 resultswithin the time period is included. Pathologist Sig nature Ventricular rate 64 [facility]USE Atrial rate 64 [facility] IA interval 136 [facility] QRSD interval 96 [facility] QT interval 406 H MUSE QTC interval 418 [facility] MUSE P axis 1 44 [facility] MUSE QRS axis 1 19 [facility] T wave axis 68 [facility] EKG impression Normal sinus [facility] MUSE rhythm-Normal ECG-In automated comparison with ECG of 30-NOV-2019 13:30,-No significant change was found- Specimen Narrative Performed At This result has an attachment that is no t available. Performing Organization Address City/State/ZIP Code Phon e Number [facility] MUSE [address] [place] [address] CT Abdomen W Contrast (12/01/2019 10:52 AM CDT) Specimen Addenda Addendum by Santa, Parvez Child MD on 2:51 PM ADDENDUM #1 There are 2 fat-containing anterior uppe r abdominal wall hernias. Narrative Performed At EXAMINATION: CT ABDOMEN W CONTRAST HM RADIANT CLINICAL HISTORY: K46.0 Unspecified abdominal hernia with obstruction without gangrene, K46.0 TECHNIQUE: Axial images of the abdomen were obtained f ollowing intravenous administration of iodinated contrast. Sagi ttal and coronal computerized reformatted images were als o obtained. CT imaging was performed with iterative reconstruction technique and/or automated exposure control to reduce rad iation dose. COMPARISON: None. FINDINGS: LUNG BASES: The lung bases are free of acute disease . ABDOMEN: Liver: The liver is normal. No focal mas s. Gallbladder/Biliary: The gallbladder is surgically abs ent. Small pneumobilia, suspect reflux. Adrenal Glands: The adrenal glands are u nremarkable. Spleen: The spleen is not enlarged. Pancreas: The pancreas is unremarkable. Kidneys: 5 mm nonobstructing stone in th e lower pole right kidney. Bowel: No bowel obstruction or inflammatory changes. N o CT evidence of appendicitis. Vascular: The abdominal aorta is nonaneu rysmal. Nodes: No enlarged retroperitoneal or me senteric lymphadenopathy. Ascites/fluid collections: No ascites or fluid collections. Other: None. MUSCULOSKELETAL: No suspicious osseous lesions. Mild dege nerative changes in the spine. IMPRESSION: No acute abnormality. [id number] Procedure Note Hm Interface, Radiology Results Incoming - 12/01/2019 11:06 AM CDT EXAMINATION: CT ABDOMEN W CONTRAST CLINICAL HISTORY: K46.0 Unspecified abd ominal hernia with obstruction without gangrene, K46.0 TECHNIQUE: Axial images of the abdomen w ere obtained following intravenous administration of iodinated contrast. Sagittal and coronal computerized reformatted images were also obtained. CT imaging was performed with iterative reconstruction technique and/or automated exposure control to reduce radiation dose. COMPARISON: None. FINDINGS: LUNG BASES: The lung bases are free of acute disease . ABDOMEN: Liver: The liver is normal. No focal mas s. Gallbladder/Biliary: The gallbladder is surgically absent. Small pneumobilia, suspect reflux. Adrenal Glands: The adrenal glands are u nremarkable. Spleen: The spleen is not enlarged. Pancreas: The pancreas is unremarkable. Kidneys: 5 mm nonobstructing stone in th e lower pole right kidney. Bowel: No bowel obstruction or inflammat ory changes. No CT evidence of appendicitis. Vascular: The abdominal aorta is nonaneu rysmal. Nodes: No enlarged retroperitoneal or me senteric lymphadenopathy. Ascites/fluid collections: No ascites or fluid collections. Other: None. MUSCULOSKELETAL: No suspicious osseous lesions. Mild dege nerative changes in the spine. IMPRESSION: No acute abnormality. [id number] Performing Organization Address City/State/ZIP Code Phon e Number [facility] [address] [place] [address] POC creatinine (12/01/2019 10:31 AM CDT) POC creatinine 0.7 0.5 - 0.9 JOSH JAVIER Comment: mg/dl [facility] Quality Control Tech Raw Materials Name: [facility] Device ID: [id number] Specimen Blood Performing Organization Address City/State/ZIP [place] [address], [address] [place], [place] [address] 5 PATHOLOGY AND GENOMIC MEDICINE JOSH JAVIER [address] [facility] [phone] after 02/26/2019 Insurance Payer Benefit Plan / Subscriber ID Effective Phone Address T ype Group Dates MEDICARE MEDICARE PART [id number] 2019-Prese [place], [place] Medicare A AND B nt [facility] [employer] [id number] 2019-Prese Commercial INSURANCE INSURANCE nt ([place]) [place] [address] Advance Directives For more information, please contact: [phone] Type Date Recorded 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
--- OUTSIDE RECORDS SUMMARY | 2020-02-27 17:36 | XMS REPORT | Continuity of Care Document ---
:1955 Author Organization [facility] Address [address] [place] [address] Dr. [address] [place] [address] Care Team Providers Name Role Phone Vicente Luz MD Primary Care Physician Norma KONG Attending Clinician Unavailable Sofiya Dennis MD Attending Clinician Vicente Luz MD Attending Clinician Kalyan Arthur Attending Clinician Chito Israel MD Attending Clinician Tashi WATSON Attending Clinician Unavailable JAMARCUS Admitting Clinician Unavailable CAMILLE Admitting Clinician Unavailable Payers Payer Name Policy Type Policy Effective Expiration Source Number Date Date MEDICAREMEDICARE PART A [id number] 2019 [place] AND 00:00:00 Bahai [id number] [facility] [id number] 2019 [facility] [place] 00:00:00 M [facility] [id number]/ 2020-PresentCommercial Problems This patient has no known problems. Allergies, Adverse Reactions, Alerts Allergy Allergy Status Severity Reaction(s) Onset Inactive Treating Comm ents Source Name Type Date Date Clinician Shailesh Morgan Active Swelling 2019-02 [place] ty to 0-21 Methodi adverse 00:00: st reaction 00 s to drug Family History Family Member Diagnosis Comments Start Date Stop Date Source Natural father Diabetes [place] Bahai Maternal No Known Problems [place] grandfather Bahai Maternal Breast cancer [place] grandmother Bahai Natural mother Atrial fibrillation [place] Natural sister Heart block Josh Kumar Social History Social Habit Start Date Stop Date Quantity Comments Source History [facility] Meth odist Alcohol Frequency History [facility] Meth odist Alcohol Binge Sex Assigned At [facility] ethodist Tobacco use and 2020-01-03 2020-01-03 Never used [facility] ethodist exposure 00:00:00 00:00:00 Alcohol intake 2020-01-03 2020-01-03 Current drinker [place] 00:00:00 00:00:00 of alcohol (finding) History SDMO 2019-11-30 2019-11-30 1 [place] Meth odist Alcohol Std Drinks 00:00:00 00:00:00 Smoking Status Start Date Stop Date Source Never smoker [place] Brandonis t Medications Ordered Filled Start Stop Current Ordering Indication Dosage Frequency Signature Comments Components Source Medication Medication Date Date Medication? Clinician (SIG) Name Name furosemide 2019-02 Yes TAKE 1 [place] (LASIX) 20 2-24 TABLET BY Meth brad mg tablet 00:00: MOUTH st 00 EVERY DAY rOPINIRole 2019-02 Yes 1mg [id number] Take 1 mg [place] (REQUIP) 1 -24 [id number] by mouth 3 Methodi MG tablet 13:09: 3D (three) st 15 times a day. escitalopra 2019-02 Yes 20mg QD Take 20 mg Josh george (LEXAPRO) -24 by mouth Meth brad 20 MG 13:09: nightly. st tablet 15 furosemide 2019-02- No 20mg QD Take 1 [place] (Lasix) 20 1-24 12-24 tablet (20 Me thodi mg tablet 00:00: 00:00 mg total) st 00 :00 by mouth daily. HYDROcodone 2019-02 2020- No acute pain 1{tbl} Q6H Take 1 [place] -acetaminop 1-12 11-24 tablet by Me thodi hen (NORCO) 00:00: 00:[address] 7.5-325 mg 00 :00 every 6 per tablet (six) hours as needed for moderate pain for up to 7 days .acute pain. Max Daily Amount: 4 tablets losartan 2019-02 Yes TAKE 2 [place] (COZAAR) 50 0-29 TABLETS BY Me thodi MG tablet 00:00: MOUTH st 00 EVERY DAY losartan 2019-02- No 50mg Q.5D Take 50 mg [place] (COZAAR) 50 0-23 10-23 by mouth 2 M ethodi MG tablet 08:15: 00:00 (two) st 25 :00 times a day. chlorthalid 2019-02 25mg QD Take 1 Tonia ston one 0-01 01-24 tablet (25 Methodi (HYGROTEN) 00:00: 00:00 mg total) s t 25 MG 00 :00 by mouth tablet daily for 30 days. losartan 2019-02 100mg QD Take 2 [place] (COZAAR) 50 0-23 10-29 tablets Meth brad MG tablet 00:00: 00:00 ([address] 00 :00 total) by mouth daily. Vital Signs Vital Name Observation Time Observation Value Comments Source Systolic blood 2020-01-03 13:10:00 132 mm[Hg] [place] pressure Diastolic blood 2020-01-03 13:10:00 63 mm[Hg] [place] on Bahai pressure Heart rate 2020-01-03 13:10:00 88 /min Josh Kumar Body height 2020-01-03 13:10:00 165.1 cm Josh uKmar Body weight 2020-01-03 13:10:00 94.711 kg Johs Kumar BMI 2020-01-03 13:10:00 34.75 kg/m2 Josh Kumar Body temperature 2019-12-22 14:59:00 36.11 Lexi [place] Respiratory rate 2019-12-22 14:59:00 68 /min [place] Oxygen saturation in 2019-12-22 14:59:00 94 /min Josh Kumar Arterial blood by Pulse oximetry Procedures Procedure Date / Time Performing Clinician Source Performed LIPID PANEL 2020-02-20 08:27:00 Ambrocio Dennis Me [facility]odist [place] AN ELECTIVE 2019-12-22 11:52:17 Robert Beltran ENDOTRACHEAL AIRWAY Monster XI ROBOTIC ASSISTED 2019-12-22 11:26:00 Melanie Luz LAPAROSCOPIC VENTRAL HERNIA COVID-19 QUALITATIVE PCR 2019-12-20 12:23:00 Melanie Luz CV LEFT HEART CATH LV GRAM 2019-12-02 07:59:00 Ambrocio Dennis WITH CORS BASIC METABOLIC PANEL 2019-12-02 06:14:00 Ambrocio Dennis HC COMPLETE BLD COUNT 2019-12-02 06:14:00 Ambrocio Dennis W/AUTO DIFF PARTIAL THROMBOPLASTIN 2019-12-02 06:14:00 Ambrocio Dennis TIME (PTT) PROTHROMBIN TIME WITH INR 2019-12-02 06:14:00 Ambrocio Dennis ESTIMATED GFR 2019-12-02 06:14:00 Ambrocio Dennis Me thodist LIPID PANEL 2019-12-02 06:14:00 Ambrocio Dennis Fl thodist ECG 12-LEAD 2019-12-02 05:28:10 Ambrocio Dennis Fl thodist COVID-19 QUALITATIVE PCR 2019-12-01 11:42:[address] ABDOMEN W CONTRAST 2019-12-01 10:52:22 Melanie Luz POC CREATININE 2019-12-01 10:31:00 Melanie Luz Meth odist ESTIMATED GFR 2019-12-01 10:31:00 Melanie Luz Meth odist ECG 12-LEAD 2019-11-30 13:30:43 Ambrocio Dennis Fl thodist Plan of Care Planned Activity Planned Date Details Comments Source Future Scheduled 2019-09-10 INFLUENZA VACCINE Dianna rosas Bahai Test 00:00:00 [code = INFLUENZA VACCINE] Future Scheduled 2019-08-20 65+ PNEUMOCOCCAL [place] Bahai Test 00:00:00 VACCINE (1 of 1 - PPSV23) [code = 65+ PNEUMOCOCCAL VACCINE (1 of 1 - PPSV23)] Future Scheduled 2004 BREAST CANCER [facility] thodist Test 00:00:00 SCREENING [code = BREAST CANCER SCREENING] Future Scheduled 2004 COLONOSCOPY SCREENING Liban Kumar Test 00:00:00 [code = COLONOSCOPY SCREENING] Future Scheduled 2004 SHINGLES VACCINES (#1) H cathy Bahai Test 00:00:00 [code = SHINGLES VACCINES (#1)] Future Scheduled 1975-08-20 [facility] malignant neoplasm of cervix (procedure) [code = 128296856] Future Scheduled 1970 COVID-19 VACCINE (1 of H cathy Bahai Test 00:00:00 2) [code = COVID-19 VACCINE (1 of 2)] Encounters Start End Encounter Admission Attending Care Care Encounter Source Date/Time Date/Time Type Type Clinicians Facility Department ID 2020-01-03 2020-01-03 Outpatient DENNIS, [facility] [id number] [place] 00:00:00 00:00:00 AMBR[address] 2019-12-22 2019-12-22 Outpatient LUZ, [facility] 079 [id number] [place] 00:00:00 00:00:00 MELANIE [address] 2019-12-20 2019-12-20 Outpatient LUZ, [facility] [id number] [place] 00:00:00 00:00:00 MELANIE [address] 2019-12-02 2019-12-02 Outpatient DENNIS, [facility] 908 [id number] [place] 00:00:00 00:00:00 AMBROCIO [address] 2019-12-01 2019-12-01 Outpatient DENNIS, [facility] [id number] [place] 00:00:00 00:00:00 AMBROCIO [address] 2019-12-01 2019-12-01 Outpatient LUZ, [facility] [id number] [place] 00:00:00 00:00:00 MELANIE [address] 2019-11-30 2019-11-30 Outpatient DENNIS, [facility] [id number] [place] 00:00:00 00:00:00 AMBROCIO [address] Results Test Description Test Time Test Comments Results Result Comments Source Lipid panel 2020-02-20 22:39:00 Test Item Value Reference Range Interpretation Comme nts Cholesterol, total (test 217 mg/dL <200 H code = 2093-3) HDL cholesterol (test 65 mg/dL > OR = 50 code = 2085-9) Triglycerides (test code 88 mg/dL <150 = 2571-8) LDL cholesterol 133 mg/dL (calc) H Reference ra nge: <100 calculated (test code = Ann veronica range <100 77395-1) mg/dL for prima ry prevention; <7 0 mg/dL for patie nts with CHD or vasyl betic patients with > or = 2 CHD risk fact ors. LDL-C is now calculated nathaly diaz the Ashia calculation, wh ich is a validated nov el method abigail diaz better accuracy than the Friedewald equation in the estimation of L DL-C. Sean SNYDER et al . SRIDEVI. 2013;310( 19): 7758-9012 (http://educati on.[facility] stDiagnostics.c om/faq /UKY942) Cholesterol/HDL ratio 3.3 <5.0 (calc) (test code = 9830-1) Non-HDL cholesterol (test 152 <130 mg/dL H Fo r patients with code = 70130-0) (calc) diabetes plu s 1 major ASCVD risk fact or, treating to a non-HDL-C goal of <100 mg/dL (LDL -C of <70 mg/dL) is considered a therapeutic opt ion. SUDHIR (test code = SUDHIR) FASTING:NOFASTING: NO RAC (test code = RAC) Performing Organization Information: Site ID: RGA [facility] Address: [address] [place], [place] [address] Director: Kb Balderas Lab Interpretation (test Abnormal code = 54364-9) [place] [id number] 11:52:17Robert Beltran CRNA 12/22/2019 11:52 AMAirway Date/Time: 12/22/2019 11:36 AMPerformed by: Robert Beltran CRNAAuthorized by: Duane Arthur Location: ORUrgency: ElectiveDifficult Airway: No Anesthesiologist: Duane ArthurResident/CIRCULATING NURSE/AA: Robert Beltran CRNAPerformed by: resident/CIRCULATING NURSE/AAPreoxygenated with 100% O2: Yes C-spine Precautions Maintained Throughout: Yes Mask Ventilation: Not attempted (covid precautions)Final Airway Type: Endotracheal airwayFinal Endotracheal Airway: ETTCuffed: Yes Technique Used: Direct laryngoscopyDevices/Methods Used in Placement: Intubating styletInsertion Site: OralBlade Type: MillerLaryngoscope Blade/Vid eolaryngoscope Blade Size: 2ETT Size (mm): 7.0Cuff at minimum occlusion pressure: Yes Measured from: LipsETT to Lips (cm): 21Placement Verified by: CO2 detection, direct visualization and equal breath sounds Laryngoscopic view: Grade I - full view of glottisRapid Sequence Induction (RSI): No Modified RSI: No Number of Attempts at Approach: 1[facility]EC[facility] 12 [id number] 18:48:00 Test Item Value Reference Range Interpretation Comments Ventricular rate (test 64 code = 253) Atrial rate (test code 64 = 255) NH interval (test code 136 = 266) QRSD interval (test 96 code = 260) QT interval (test code 406 = 264) QTC interval (test code 418 = 265) P axis 1 (test code = 44 267) QRS axis 1 (test code = 19 268) T wave axis (test code 68 = 270) EKG impression (test Normal sinus code = 273) rhythm-Normal ECG-In automated comparison with ECG of 30-NOV-2019 13:30,-No significant change was found- [place] MethodistCath lab [id number] 11:25:39Cardiology Procedure NoteHouCHRIST[facility] DATE OF PROCEDURE: 12/02/2019[facility] ASSISTED SALES REPRESENTATIVE RM 1 INDICATION: Chest pain, unspecified [R07.9] Procedure(s):CV LEFT HEARTCATH LV GRAM WITH CORS REFERRING PHYSICIAN: No referring provider defined for this encounter. PERFORMED BY: Dr. Ambrocio Vazquez(s) and Role: * Ambrocio Dennis MD - Primary BRIEF HISTORY:Taylor Thornton is a pleasant 64 y.o.-female with a significant past medical history of HTN, depression, and restless leg syndrome who presents for evaluation of chest painANESTHESIA: Anesthesia type not filed in the log. ESTIMATED BLOOD LOSS: 5 mL TOTAL IV FLUIDS: 125 mL Total Contrast: 80 mL PROCEDURE DETAILS:Left Heart CatheterizationAfter discussion of the potential benefits, risks, and alternatives to the planned procedure the patient gave informed consent. The ASA class was III. The patient was then brought to the cardiac catheterization laboratory in a fasted state. The patient was prepped and draped in the usual sterile fashion. Under local anesthesia, vascular access was obtained in the standard fashion using the modified Seldinger technique. A 6Fr sheath was placed in the right radial artery. All catheters were advanced over a 0.035" J-tip guidewire under fluoroscopic guidance. Selective coronary arteriography was then performed using 5Fr JL3.5 catheter to engage the left coronaryartery and a 5Fr JR4 catheter to engage the right coronary artery. Right and left coronary arteriography were performed in standard orthogonal views by hand injections of Visipaque. The 5Fr PIG catheter was used to cross the aortic valve. Left ventricular pressures were measured. The aortic valve gradient was measured as the left ventricular catheter was pulled back across the aortic valve. After reviewing the findings hemostasis of the arterial access site was achieved with TR band. The patient was transferred to the post procedural care unit for further management. There were no complications and the patient tolerated the procedure well. The attending physician provided personal supervision as head cd reactor operator and/ or first helper throughout the procedure. Hemodynamics Systolic (mmHg) Diastolic (mmHg) Mean (mmHg) Sat (%) SVC IVC RA RV PA PCWP LV 124 12 28 Ao 125 71 89 Coronary AnatomyDOMINANCE: Right LM: The left main coronary artery arises from the left coronary cusp and gives rise to the left anterior descending artery (LAD) and the left circumflex artery (LCx). The [...] branches are free of angiographically significant disease. LCx: The LCx is a non-dominant vessel that arises from the left main. It gives rise to 2 obtuse marginal branches along its course in the atrioventricular groove. The LCx and its branches are free of angiographically significant disease. RCA: The RCA is a dominant vessel that arises from the right coronary cusp. The RCA gives rise to aconus branch, an atrial branch, and an acute marginal branch before bifurcating into the right posteriolateral artery (BARBRAA) and posterior descending artery (PDA) at the level of the crux. The RCA and its branches are free of angiographically significant disease. COMPLICATIONS: None; patient tolerated the procedure well. CONCLUSIONS:- No significant coronary artery disease as detailed above- Elevated left sided filling pressures given LVEDP 28 mmHg- No significant gradient across aortic valve during catheter pullback- Hemostasis of right radial arteriotomy access site using TR band RECOMMENDATIONS:-Transferred to PACU in stable condition- Wean radar band per unit protocol after two hours- No lifting objects > 5lb or soaking acces site in water for 5 days- Continue optimal medical management for primary prevention per current ACC/AHA guidelines Ambrocio Dennis MD, MAStructural & Interventional CardiologistAiea [facility].Date: 12/02/2019Time: 10:57 [facility]ENTERcathy Taylorunm cancer centerBasic metabolic [id number] 06:50:25 Test Item Value Reference Range Interpretation Comments Sodium (test code = 2951-2) 141 135- 148 mEq/L Potassium (test code = 2823-3) 4.4 3.5- 5.0 mEq/L Chloride (test code = 2075-0) 102 98- 112 mEq/L CO2 (test code = 8-9) 29 24- 31 mEq/L Anion gap (test code = 12344-5) 10 7- 15 mEq/L BUN (test code = 3094-0) 25 mg/dL 8-23 H Creatinine (test code = 2160-0) 0.79 mg/dL 0.5-0.9 Glucose (test code = 2345-7) 109 mg/dL 65-99 H Calcium (test code = 80782-0) 10.2 mg/dL 8.8-10.2 Lab Interpretation (test code = Abnormal 43494-5) Josh KumarEstimated [id number] 06:50:25 Test Item Value Reference Range Interpretation Comments Estimated GFR (test 78 mL/min/1.73 m2 [facility] Units code = 5488) InterpretationG 1 >=90 Normal or highG2 60-89 Mildly uqvkgtswmY7u 45-59 Mildly to mode rately fkmoxiyzeS6o 30-44 Moderately to severely decreasedG4 15-29 Severely decre asedG5 <15 Kidn ey failureThe eGFR was calculated nathaly diaz the Chronic Kidney Disease Epidemiology Co llaboration (CKD-EPI) equat ion. Interpretation is based on recommendations of the National Kidney Foundation-Kidn ey Disease Outcomes Qualit y Initiative (NKF-KDOQI) pub lished in 2014. Moreno MethodistProthrombin time with [id number] 06:39:29 Test Item Value Reference Range Interpretation Comments Prothrombin time (test 12.3 11.5- 14.5 sec code = 5902-2) INR (test code = 0.9 The Interna tional 54466-1) Normalized Rati o (INR) is a therapeutic m onitoring tool for patien ts who are stable on oral anticoagulant t herapy. An INR of 2.0-3.0 is suggested for d eep vein thrombosis/pulm onary embolism. [place] MethodistPartial thromboplastin time, [id number] 06:39:29 Test Item Value Reference Range Interpretation Comments PTT (test code = 22.5 23.0- 36.0 sec L PTT thera peutic range 35441-7) for unfractiona frances heparin is61.0- 112.0 seconds which corresponds to Anti-Xa0.3-0.7 U/ml. Lab Interpretation Abnormal (test code = 05463-2) [place] MethodistCBC with platelet and [id number] 06:22:22 Test Item Value Reference Range Interpretation Comments WBC (test code = 5.31 4.50- 11.00 k/uL 44625-6) RBC (test code = 4.51 m/uL 4.2-5.5 63255-7) HGB (test code = 718-7) 14.3 g/dL 12-16 HCT (test code = 4544-3) 44.0 % 37-47 MCV (test code = 787-2) 97.6 fL 82-100 MCH (test code = 785-6) 31.7 pg 27-34 MCHC (test code = 786-4) 32.5 g/dL 31-37 RDW - SD (test code = 43.4 fL 37-55 72953-5) MPV (test code = 10.3 fL 8.8-13.2 54179-3) Platelet count (test 167 150- 400 k/uL code = 39498-3) Nucleated RBC (test code 0.00 /100 WBC = 48117-9) Neutrophils (test code = 58.5 % 39-69 87513-9) Lymphocytes (test code = 32.0 % 25-45 00252-2) Monocytes (test code = 7.2 % 0-10 96972-8) Eosinophils (test code = 1.7 % 0-5 11411-7) Basophils (test code = 0.4 % 0-1 16014-3) Immature granulocytes 0.2 % 0-1 "Immat ure (test code = 37343-7) granul ocytes" (promyelocytes, myelocytes, metamyelocytes) [place] MethodistCT Abdomen W [id number] 11:02:56Addendum by Marker, Parvez Child MD on 12/07/2019 2:51 PM ADDENDUM #1 There are 2 fat-containing anterior upper abdominal wall hernias. Hm Interface, Radiology Results 12/01/2019 11:06 AM CDTEXAMINATION: CT ABDOMEN W CONTRASTCLINICAL HISTORY: K46.0 Unspecified abdominal hernia with obstruction without gangrene, K46.0TECHNIQUE: Axial images of the abdomen were obtained following intravenous administration of iodinated contrast. Sagittal and coronal computerized reformatted images were also obtained.CT imaging was performed with iterative reconstruction technique and/or automated exposure control to reduce radiation dose.COMPARISON: None.FINDINGS:LUNG BASES:The lung bases are free of acute disease.ABDOMEN:Liver: The liver is normal. No focal mass.Gallbladder/Biliary: The gallbladder is surgically absent. Small pneumobilia, suspect reflux.Adrenal Glands: The adrenal glands are unremarkable.Spleen: The spleen is not enlarged.Pancreas: The pancreas is unremarkable.Kidneys: 5 mm nonobstructing stone in the lower pole right kidney.Bowel: No bowel obstruction orinflammatory changes. No CT evidence of appendicitis.Vascular: The abdominal aorta is nonaneurysmal.Nodes: No enlarged retroperitoneal or mesenteric lymphadenopathy.Ascites/fluid collections: No ascites or fluid collections.Other: None.MUSCULOSKELETAL: No suspicious osseous lesions. Mild degenerative changes in the spine.IMPRESSION: No acute abnormality.[id number] [facility] [id number] 10:33:29 Test Item Value Reference Range Interpretation Comments POC creatinine (test 0.7 mg/dl 0.5-0.9 Operato r Name: Chance code = 53464-4) Robbie ce ID: [id number] [facility]
[2020-02-27 18:49] LABS: Absolute Lymphocytes (CBC) 0.3 K/uL (0.7-4.9); Basophils % 0.2 % (0-1.3); MPV 8.9 fL (7.6-11.3); RBC Red Blood Cell Count 4.39 M/uL (3.86-4.86)
[2020-02-27 18:50] LABS: Protime INR 1.1
--- NOTE | 2020-02-27 18:59 | RAD REPORT ---
EXAM DESCRIPTION: Chris Single View02/27/2020 6:47 pm CLINICAL HISTORY: Chest pain COMPARISON: 2018 FINDINGS: The lungs appear clear of acute infiltrate. The heart is mildly enlarged IMPRESSION: No acute abnormalities displayed
[2020-02-27] MEDS ORDERED: FENTANYL CITR 100 MCG/2 ML ONE (19:03)
[2020-02-27] MEDS ORDERED: ONDANSETRON 4 MG/2 ML VIAL ONE ×2 (19:03→20:59)
[2020-02-27 19:16] LABS: ALT/SGPT 152 U/L (12-78); Albumin 3.4 g/dL (3.4-5.0); Alkaline Phosphatase 193 U/L (45-117); BUN Blood Urea Nitrogen 19 mg/dL (7-18); Bicarbonate 30 mmol/L (21-32); Bilirubin Direct 4.3 mg/dL (0-0.2); Glucose Level 181 mg/dL (74-106); NT PRO-BNP 117 pg/mL (<125); Protein, Total 8.4 g/dL (6.4-8.2); Sodium Level 140 mmol/L (136-145); Troponin (Emerg Dept Use Only) < 0.02 ng/mL (0.0-0.045)
[2020-02-27 19:20] LABS: AST/SGOT 97 U/L (15-37); Magnesium 2.1 mg/dL (1.8-2.4); Potassium 3.5 mmol/L (3.5-5.1)
[2020-02-27 19:22] LABS: Bilirubin Total 5.9 mg/dL (0.2-1.0)
[2020-02-27 19:54] LABS: Blood Morphology Comment NOT SEEN (NOT SEEN); Platelet Estimate ADEQ; White Blood Cell Scan OK (OK)
--- NOTE | 2020-02-27 19:59 | RAD REPORT ---
EXAM DESCRIPTION: CT - Chest For Pe Angio - 02/27/2020 7:41 pm CLINICAL HISTORY: Chest pain COMPARISON: None. TECHNIQUE: Dynamically enhanced axial 3 mm thick images of the chest were obtained during administra tion of <100> mL Isovue 370 IV contrast. Coronal and oblique reconstruction images were generated and reviewed. Exam utilizes a protocol for optimal evaluation of pulmonary arterial tree. Maximum intensity projections 3D imaging was utilized All CT scans are performed using dose optimization technique as appropriate and may include automated exposure control or mA/KV adjustment according to patient size. FINDINGS: A pulmonary embolus is not seen. A thoracic aortic aneurysm is not noted. The main pulmonary artery is prominent perhaps secondary to pulmonary arterial hypertension. The heart is enlarged A pleural effusion is not seen. A pericardial effusion is not seen. A lung consolidation is not present. IMPRESSION: Negative for a pulmonary embolism.
--- NOTE | 2020-02-27 20:10 | RAD REPORT ---
EXAM DESCRIPTION: CT - Abdomen Pelvis W Contrast - 02/27/2020 7:41 pm CLINICAL HISTORY: Abdominal pain COMPARISON: 2013 TECHNIQUE: Computed axial tomography of the abdomen pelvis was obtained. 100 cc Isovue-300 was admin istered intravenously. Oral contrast was not requested which limits evaluation of bowel. All CT scans are performed using dose optimization technique as appropriate and may include automated exposure control or mA/KV adjustment according to patient size. FINDINGS: Fatty liver. Cholecystectomy. Common bile duct is prominent. The spleen, pancreas and adrenals unremarkable. Mild renal cortical thinning perhaps secondary prior inflammation. A 2 millimeter nonobstructing right renal calculus. There is no evidence of diverticulitis. Spondylosis involves lumbar spine resulting spinal stenosis. Hysterectomy IMPRESSION: The common bile duct is prominent. This probably is physiologic in this patient status p ost cholecystectomy. However, pathology such as a stricture can also result in this appearance and sh ould be correlated clinically and with appropriate lab values Fatty liver
[2020-02-27 20:15] LABS: SARS-COV-2 RT PCR NEGATIVE (NEGATIVE)
--- NOTE | 2020-02-27 20:46 | EDPHYS ---
Physician Documentation [facility] Name: Gosia Thornton Age: 64 yrs Sex: Female : 1955 Arrival Date: 02/27/2020 Time: 17:36 Bed 18 Private MD: ED Physician Ernie Sequeira HPI: 02/26 19:53 This 64 yrs old Female presents to ER via Wheelchair with complaints of Chest jmm Pain. 19:53 The patient or guardian reports chest pain that is located primarily in the substernal jmm area, epigastric area. Onset: gradually, 1 hour(s) ago. The pain does not radiate. Associated signs and symptoms: Pertinent positives: abdominal pain. The chest pain is described as aching. Modifying factors: The symptoms are alleviated by nothing. the symptoms are aggravated by nothing. This is a 64 year old female with a history of depression, hep c, htn that presents to the ED with complaints of chest pain beginning earlier today. Denies abdominal pain. Patient states having a fever earlier today. . 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 - Social history:: Smoking status: Patient denies any tobacco usage or history of. ROS: 19:53 Cardiovascular: Negative for chest pain, palpitations, and edema, Respiratory: Negative jmm for shortness of breath, cough, wheezing, and pleuritic chest pain. 19:53 Constitutional: Positive for body aches, fever. 19:53 Cardiovascular: Positive for chest pain. 19:53 All other systems are negative. Exam: 19:53 Constitutional: This is a well developed, well nourished patient who is awake, alert, jmm and in no acute distress. Head/Face: atraumatic. Eyes: EOMI, no conjunctival erythema appreciated ENT: Moist Mucus Membranes Chest/axilla: Normal chest wall appearance and motion. Cardiovascular: Regular rate and rhythm. No edema appreciated Respiratory: Normal respirations, no respiratory distress appreciated Abdomen/GI: Non distended, soft Back: Normal ROM Skin: General appearance color normal MS/ Extremity: Moves all extremities, no obvious deformities appreciated, no edema noted to the lower extremities Neuro: Awake and alert, normal gait Psych: Behavior is normal, Mood is normal, Patient is cooperative and pleasant Vital Signs: 17:40 BP 156 / 70; Pulse 85; Resp 20 S; Temp 97.3(TE); Pulse Ox 98% on R/A; Weight 91.63 kg ca1 (R); Height 5 ft. 5 in. (165.10 cm); Pain 10/10; 20:30 BP 133 / 64; Pulse 98; Resp 22; Pulse Ox 95% on R/A; jb4 21:30 BP 136 / 94; Pulse 98; Resp 17; Pulse Ox 95% on R/A; jb4 17:40 Body Mass Index 33.61 (91.63 kg, 165.10 cm) ca1 MDM: 18:26 Patient medically screened. gwendolyn 20:40 Data reviewed: vital signs, nurses notes. gwendolyn 20:43 Data reviewed: lab test result(s), radiologic studies, CT scan, plain films. ED course: gwendolyn I discussed the patient with GI whom will consult on admission. I discussed the patient with Kwaku Rivera whom accepted the patient to Dr. Gregory service. . 02/26 18:23 Order name: Basic Metabolic Panel; Complete Time: 19:25 02/26 18:23 Order name: CBC with Diff; Complete Time: 19:59 02/26 18:23 Order name: LFT's; Complete Time: 19:25 02/26 18:23 Order name: Magnesium; Complete Time: 19:25 02/26 18:23 Order name: NT PRO-BNP; Complete Time: 19:25 02/26 18:23 Order name: PT-INR; Complete Time: 18:52 02/26 18:23 Order name: Troponin (emerg Dept Use Only); Complete Time: 19:25 02/26 18:41 Order name: Procalcitonin; Complete Time: 19:46 [facility] 02/26 18:41 Order name: Lactate; Complete Time: 20:12 [facility] 02/26 18:41 Order name: Blood Culture Adult (2) [facility] 02/26 18:50 Order name: CBC Smear Scan; Complete Time: 19:59 [facility] 02/26 20:15 Order name: COVID-19/FLU A+B; Complete Time: 20:15 [facility] 02/26 17:42 Order name: EKG; Complete Time: 17:43 ca1 02/26 17:42 Order name: EKG - Nurse/Tech; Complete Time: 17:43 ca1 02/26 18:23 Order name: XRAY Chest (1 view); Complete Time: 19:09 ss 02/26 18:23 Order name: EKG; Complete Time: 18:24 02/26 18:23 Order name: Cardiac monitoring; Complete Time: 18:37 02/26 19:26 Order name: CT Chest For PE Angio; Complete Time: 20:06 [facility] 02/26 19:26 Order name: CT Abd/Pelvis - IV Contrast Only; Complete Time: 20:12 [facility] 02/26 20:16 Order name: AMMONIA; Complete Time: 21:07 [facility] 02/26 20:39 Order name: US Abdomen Limited [facility] 02/26 21:50 Order name: US [facility] 02/26 18:23 Order name: EKG - Nurse/Tech; Complete Time: 18:37 02/26 18:23 Order name: IV Saline Lock; Complete Time: 18:37 02/26 18:23 Order name: Labs collected and sent; Complete Time: 18:37 02/26 18:23 Order name: O2 Per Protocol; Complete Time: 18:37 02/26 18:23 Order name: O2 Sat Monitoring; Complete Time: 18:37 ss Administered Medications: 18:54 Drug: fentaNYL (PF) 50 mcg Route: IVP; Site: right antecubital; ss 18:54 Drug: Zofran (Ondansetron) 4 mg Route: IVP; Site: right antecubital; ss 21:08 Drug: Zofran (Ondansetron) 4 mg Route: IVP; Site: right antecubital; jb4 21:30 Follow up: Response: No adverse reaction; Nausea is decreased jb4 21:10 Drug: morphine 2 mg Route: IVP; Site: right antecubital; jb4 21:40 Follow up: Response: No adverse reaction; Pain is decreased; RASS: Alert and Calm (0) jb4 21:11 Drug: Cefepime 1 grams {Note: Given IVP per pharmacy protocol.} Route: IVPB; Rate: 200 jb4 ml/hr; Infused Over: 30 mins; Site: right antecubital; 21:15 Follow up: Response: No adverse reaction; IV Status: Completed infusion; IV Intake: [id number] Disposition: 02/27 06:36 Co-signature as Attending Physician, Ernie TERRELL I agree with the assessment and inder plan of care. Disposition: 02/27/20 20:45 Hospitalization ordered by Lucius Gregory for Observation. Preliminary diagnosis are Chest pain, unspecified, Abdominal tenderness. - Bed requested for Telemetry/MedSurg (observation). - Status is Observation. tt3 - Condition is Stable. - Problem is new. - Symptoms are unchanged. Signatures: Dispatcher [employer] [facility] Penelope Moran, GHADA-C GHADA-Mirna Burch RN RN mw Anderson, Corey, MD MD cha Mickail, Joel, PA PA [facility] Kelsea Padilla RN RN ss Attema, Lee, FNP-C FNP-Cla1 Chava Allen RN RN jb4 Ladonna Reeves RN RN ca1 Justino Ramsay tt3 Corrections: (The following items were deleted from the chart) 02/26 19:30 18:42 CORONAVIRUS+MR.LAB.BRZ ordered. EDMN EDMN 19:30 18:42 Influenza Screen (A \T\ B)+BA.LAB.BRZ ordered. EDMN EDMS 20:02 19:22 Abdomen Limited+US.RAD.BRZ ordered. EDMN EDMS 21:17 20:45 Hospitalization Ordered by Lucius Gregory DO for Observation. Preliminary diagnosis is Chest pain, unspecified; Abdominal tenderness. Bed requested for Telemetry/MedSurg (observation). Status is Observation. Condition is Stable. Problem is new. Symptoms are unchanged. [facility] 22:38 21:17 02/27/2020 20:45 Hospitalization Ordered by Lucius Gregory DO for Observation. tt3 Preliminary diagnosis is Chest pain, unspecified; Abdominal tenderness. Bed requested for Telemetry/MedSurg (observation). Status is Observation. Condition is Stable. Problem is new. Symptoms are unchanged.
--- NOTE | 2020-02-27 20:46 | ER ---
Nurse's Notes [facility] Name: Gosia Thornton Age: 64 yrs Sex: Female : 1955 Arrival Date: 02/27/2020 Time: 17:36 Bed 18 Private MD: Diagnosis: Chest pain, unspecified;Abdominal tenderness Presentation: 02/26 17:37 Chief complaint: Patient states: Chest pain started this morning at 0800, went away. ca1 Started again at 1300, constant, non-radiating, CP with difficulty breathing and SOB. Reports fever of 102F this morning. Denies cough. Coronavirus screen: Client denies travel out of the [place] in the last 14 days. difficulty breathing, shortness of breath, Client presents with at least one sign or symptom that may indicate coronavirus-19. Standard/surgical mask placed on the client. Provider contacted for isolation considerations. Ebola Screen: Patient negative for fever greater than or equal to 101.5 degrees Fahrenheit, and additional compatible Ebola Virus Disease symptoms Patient denies exposure to infectious person. Patient denies travel to an Ebola-affected area in the 21 days before illness onset. No symptoms or risks identified at this time. Initial Sepsis Screen: Does the patient meet any 2 criteria? No. Patient's initial sepsis screen is negative. Does the patient have a suspected source of infection? No. Patient's initial sepsis screen is negative. Risk Assessment: Do you want to hurt yourself or someone else? Patient reports no desire to harm self or others. Onset of symptoms was February 27, 2020. 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 - Social history:: Smoking status: Patient denies any tobacco usage or history of. Screenin:36 Abuse screen: Denies threats or abuse. Denies injuries from another. Nutritional ss screening: No deficits noted. Tuberculosis screening: Never had TB. Fall Risk None identified. Assessment: 18:39 General: Appears uncomfortable, Behavior is calm, cooperative, Reports fever for 102.5 ss that began 0800 this morning, went away after self medicating and has not returned since. . Denies feeling ill, fatigue, chills. Pain: Complains of pain in mid-sternal area Pain does not radiate. Pain currently is 10 out of 10 on a pain scale. at worst was 10 out of 10 on a pain scale. Quality of pain is described as sharp, stabbing, Pain began began at 0800 this morning, went away and came back at 1300 today. Neuro: Level of Consciousness is awake, alert, obeys commands, Oriented to person, place, time, situation, Pupils are PERRLA. Cardiovascular: Capillary refill < 3 seconds is brisk in bilateral fingers Patient's skin is warm and dry. Respiratory: Airway is patent Respiratory effort is even, unlabored, Respiratory pattern is regular, symmetrical, Denies cough, shortness of breath labored breathing. Respiratory:. GI: Reports nausea, Patient currently denies diarrhea, vomiting. : No signs and/or symptoms were reported regarding the genitourinary system. EENT: Nares are clear Oral mucosa is moist. Throat is clear. Derm: Skin is intact, is healthy with good turgor, Skin is pink, warm \T\ dry. normal. 20:30 Reassessment: Patient appears in no apparent distress at this time. Patient and/or jb4 family updated on plan of care and expected duration. Pain level reassessed. Patient is alert, oriented x 3, equal unlabored respirations, skin warm/dry/pink. Report received from WALTER Saavedra. 21:30 Reassessment: Patient appears in no apparent distress at this time. Patient and/or jb4 family updated on plan of care and expected duration. Pain level reassessed. Patient is alert, oriented x 3, equal unlabored respirations, skin warm/dry/pink. 22:30 Reassessment: Patient appears in no apparent distress at this time. Patient and/or jb4 family updated on plan of care and expected duration. Pain level reassessed. Patient is alert, oriented x 3, equal unlabored respirations, skin warm/dry/pink. Vital Signs: 17:40 BP 156 / 70; Pulse 85; Resp 20 S; Temp 97.3(TE); Pulse Ox 98% on R/A; Weight 91.63 kg ca1 (R); Height 5 ft. 5 in. (165.10 cm); Pain 10/10; 20:30 BP 133 / 64; Pulse 98; Resp 22; Pulse Ox 95% on R/A; jb4 21:30 BP 136 / 94; Pulse 98; Resp 17; Pulse Ox 95% on R/A; jb4 17:40 Body Mass Index 33.61 (91.63 kg, 165.10 cm) ca1 ED Course: 17:36 Patient arrived in ED. as 17:39 Triage completed. ca1 17:40 Arm band placed on right wrist. ca1 18:21 Pierce Do PA is PHCP. jmm 18:21 Ernie Sequeira MD is Attending Physician. jmm 18:30 Inserted saline lock: 20 gauge in right antecubital area, using aseptic technique. ss Blood collected. 18:36 Patient has correct armband on for positive identification. Bed in low position. Call ss light in reach. stoker mechanic on. Pulse ox on. NIBP on. 18:37 Kelsea Padilla, RN is Primary Nurse. ss 18:39 Patient maintains SpO2 saturation greater than 95% on room air. ss 18:47 XRAY Chest (1 view) In Process Unspecified. EDMS 19:42 CT Chest For PE Angio In Process Unspecified. EDMS 19:42 CT Abd/Pelvis - IV Contrast Only In Process Unspecified. EDMS 20:25 Primary Nurse role handed off by Kelsea Padilla, WALTER jb4 20:25 Chava Allen, RN is Primary Nurse. jb4 20:44 Lucius Gregory DO is Hospitalizing Provider. m 22:30 No provider procedures requiring assistance completed. Patient admitted, IV remains in jb4 place. Administered Medications: 18:54 Drug: fentaNYL (PF) 50 mcg Route: IVP; Site: right antecubital; ss 18:54 Drug: Zofran (Ondansetron) 4 mg Route: IVP; Site: right antecubital; ss 21:08 Drug: Zofran (Ondansetron) 4 mg Route: IVP; Site: right antecubital; jb4 21:30 Follow up: Response: No adverse reaction; Nausea is decreased jb4 21:10 Drug: morphine 2 mg Route: IVP; Site: right antecubital; jb4 21:40 Follow up: Response: No adverse reaction; Pain is decreased; RASS: Alert and Calm (0) jb4 21:11 Drug: Cefepime 1 grams {Note: Given IVP per pharmacy protocol.} Route: IVPB; Rate: 200 jb4 ml/hr; Infused Over: 30 mins; Site: right antecubital; 21:15 Follow up: Response: No adverse reaction; IV Status: Completed infusion; IV Intake: [id number] Intake: 21:15 IV: 10ml; Total: 10ml. jb4 Outcome: 20:45 Decision to Hospitalize by Provider. gwendolyn 22:30 Admitted to Med/surg accompanied by nurse, via wheelchair, room 225, with chart, Report jb4 called to WALTER Fagan 22:30 Condition: stable 22:30 Discharge instructions given to patient, Instructed on the need for admit, Demonstrated understanding of instructions. 22:38 Patient left the ED. tt3 Signatures: Dispatcher [employer] EDMS Pierce Do PA PA jmm Martinez, Amelia as Smirch, Shelby, WALTER RN Chava Allen RN RN jb4 Ladonna Reeves RN RN ca1 Justino Ramsay tt3 Corrections: (The following items were deleted from the chart) 17:44 17:37 Acuity: CONCEPCION 3 ca1 ca1 18:08 17:37 Chief complaint: Patient states: Chest pain started this morning at 0800, went ca1 away. Started again at 1300, constant, non-radiating, CP with difficulty breathing. Reports fever of 102F this morning. Denies cough ca1 22:13 20:30 BP 136 / 94; Pulse 98bpm; Resp 17bpm; Pulse Ox 95% RA; jb4 jb4 22:13 21:30 BP 133 / 64; Pulse 98bpm; Resp 22bpm; Pulse Ox 95% RA; jb4 jb4
[2020-02-27] MEDS ORDERED: CEFEPIME/SWI 1gm 10 ML ONE (21:03)
[2020-02-27] MEDS ORDERED: MORPHINE 2 MG/ML SYR ONE (21:17)
--- NOTE | 2020-02-27 21:17 | P.HP ---
Certification for Inpatient Patient admitted to: Observation With expected LOS: <2 Midnights Patient will require the following post-hospital care: None Practitioner: I am a practitioner with admitting privileges, knowledge of patient current condition, hospital course, and medical plan of care. Services: Services provided to patient in accordance with Admission requirements found in Title 42 Section 412.3 of the Code of Federal Regulations <Kwaku Rivera - Last Filed: 02/27/20 21:13> Patient History Date of Service: 02/27/20 Primary Care Provider: Diana Villatoro Reason for admission: Abdominal pain History of Present Illness: 64-year-old female with history of hypertension, hyperlipidemia presents to the emergency department for epigastric pain. Patient reports the pain started this morning, is not radiating to the right upper quadrant, reports similar episodes 2 times in the past that resolved on their own without evaluation. 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 Patient was evaluated in the emergency department, labs significant for elevated T bili 5.9 and D bili 4.3 AST 97 ALT 152 alk-phos 193. Pro calcitonin mildly elevated 0.[address] abdomen pelvis demonstrates no gallbladder, common bile duct is prominent likely physiologic in a patient without gallbladder however pathology such as stricture could also results in his appearance and should be clinically correlated. Fatty liver also noted. ED provider consulted hospitalist team for admission, was informed this needed to be ran by gastroenterology. Gastroenterology was contacted, their SALES REPRESENTATIVE agreed with plan for MRCP, covered with antibiotics and will be evaluated tomorrow by GI. Patient does not appear septic at this time. - Past Medical/Surgical History Diabetic: No -: Restless legs syndrome -: anxiety -: depression -: hip pain (bilateral) -: hep c -: hypertension -: Hyperlipidemia -: Kidney stone surge1994 -: Colostomy as Psychosocial/ Personal History: Patient is retired, lives with her - Family History Father -: Heart disease Mother -: Hypertension - Social History Smoking Status: Never smoker Alcohol use: Yes CD- Drugs: No Caffeine use: Yes Place of Residence: Home <Kwaku Rivera - Last Filed: 02/27/20 21:13> Date of Service: 02/28/20 Home medications list reviewed: Yes <Lucius Gregory - Last Filed: 02/28/20 09:02> Allergies codeine Allergy (Verified 05/05/16 08:21) Hives Hydrocodone-Acetaminophen Allergy (Mild, Uncoded 03/08/18 18:33) Itching Home Medications: Azithromycin 250 mg PO DAILY 03/08/18 Buspirone HCl [Buspar] 10 mg PO BID 03/08/18 Losartan Potassium 25 mg PO BID 03/08/18 Meloxicam 15 mg PO DAILY 03/08/18 Oseltamivir [Tamiflu] 75 mg PO DAILY 03/08/18 Paroxetine HCl [Paxil] 20 mg PO DAILY 03/08/18 Ropinirole HCl 1 mg PO TID 03/08/18 Albuterol Sulfate [Ventolin Hfa] 8 gm IH Q8HP PRN #1 hfa.aer.[id number] 03/09/18 Prednisone [Sterapred Ds] 10 mg PO BID #9 tab.ds.pk 03/09/18 Review of Systems 10-point ROS is otherwise unremarkable Gastrointestinal: Nausea, Abdominal Pain <Kwaku Rivera - Last Filed: 02/27/20 21:13> Physical Examination - Physical Exam General: Alert, In no apparent distress HEENT: Atraumatic, PERRLA, Mucous membr. moist/pink Neck: Supple, 2+ carotid pulse no bruit, No LAD Respiratory: Clear to auscultation bilaterally, Normal air movement Cardiovascular: Regular rate/rhythm, Normal S1 S2 Gastrointestinal: Normal bowel sounds, No rebound, No guarding, Tenderness (Epigastric and right upper quadrant tenderness noted) Musculoskeletal: No tenderness Integumentary: No rashes Neurological: Normal speech, Normal strength at 5/5 x4 extr, Normal tone, Normal affect - Studies Laboratory Data (last 24 hrs) 02/27/20 18:25: PT 13.0 H, INR 1.10 02/27/20 18:25: WBC 8.9, Hgb 13.7, Hct 42.0, Plt Count 172 02/27/20 18:25: Sodium 140, Potassium 3.5, BUN 19 H, Creatinine 0.91, Glucose 181 H, Magnesium 2.1, Total Bilirubin 5.9 H*, AST 97 H, ALT 152 H, Alkaline Phosphatase 193 H <Kwaku Rivera - Last Filed: 02/27/20 21:13> - Studies Laboratory Data (last 24 hrs) 02/27/20 18:25: PT 13.0 H, INR 1.10 02/27/20 18:25: WBC 8.9, Hgb 13.7, Hct 42.0, Plt Count 172 02/27/20 18:25: Sodium 140, Potassium 3.5, BUN 19 H, Creatinine 0.91, Glucose 181 H, Magnesium 2.1, Total Bilirubin 5.9 H*, AST 97 H, ALT 152 H, Alkaline Phosphatase 193 H <Lucius Gregory - Last Filed: 02/28/20 09:02> Assessment and Plan - Plan Assessment Abdominal pain with elevated aminotransferase levels and prominent CBD without present gallbladder History of hepatitis-C Hypertension Hyperlipidemia Plan Abdominal pain with elevated aminotransferase levels and prominent CBD without present gallbladder: GI consult in place, MRCP ordered for tomorrow morning. Continue with IV antibiotics, pain medication as needed. NPO. Patient also with history of hepatitis-C, fatty liver noted on CT scan. Due to pain I suspect this is more of an acute process. SCDs for DVT prophylaxis in case of possible surgical intervention. History of hepatitis-C: Obtain hepatitis panel, trend LFTs, INR. GI consult in Hypertension: Obtain and continue home medications as appropriate Hyperlipidemia: Obtain and continue home medications as appropriate. Discharge Plan: Home Plan to discharge in: 24 Hours - Advance Directives Does patient have a Living Will: No Does patient have a Durable POA for Healthcare: No - Code Status/Comfort Care Code Status Assessed: Yes (Full code) Critical Care: No Time Spent Managing Pts Care (In Minutes): 55 <Kwaku Rivera - Last Filed: 02/27/20 21:13> - Plan Case discussed with nurse practitioner. Agree with evaluation, assessment and plan of care. MRCP shows choledocholithiasis. Case discussed with GI. GI does not perform ERCPs. GI recommends transfer to higher level center for ERCP. Will initiate transfer. Please see progress note for details. <Lucius Gregory - Last Filed: 02/28/20 09:02>
--- NOTE | 2020-02-27 21:48 | RAD REPORT ---
EXAM DESCRIPTION: US - Abdomen Exam Limited - 02/27/2020 9:28 pm CLINICAL HISTORY: Abdominal pain. COMPARISON: Cat scan February 27, 2020 FINDINGS: Gallbladder is absent. The proximal common bile duct better seen on the CT scan measures 19 millimeters. The distal common b ile duct is normal caliber. IMPRESSION: Prominent proximal common bile duct. This can be physiologic in a patient status post ch olecystectomy. Pathology such as a stricture can also result in this appearance and should be correla frances clinically with appropriate lab values
[2020-02-27] MEDS ORDERED: ONDANSETRON 4 MG/2 ML VIAL IV PRN (22:21)
[2020-02-27] MEDS ORDERED: MORPHINE 2 MG/ML SYR IV PRN (22:21)
[2020-02-27] MEDS ORDERED: ACETAMINOPHEN 500 MG TAB PO PRN (22:21)
[2020-02-27 22:49] VITALS: BMI 33.6
[2020-02-27 23:09] VITALS: O2SAT 99
[2020-02-27] MEDS ORDERED: LORazepam 2 MG/ML VIAL IV ONE (23:15)
[2020-02-27] MEDS: NA CHLORIDE 0.9% 1,000 ML IV SCH (23:26)
[2020-02-28] MEDS ORDERED: PIPER/TAZO/NS 3.375gm 3.375 GM/100 ML BAG ONE (00:37)
[2020-02-28] MEDS: PIPER/TAZO/NS 3.375gm 3.375 GM/100 ML BAG IVPB SCH ×3 (00:38→17:00)
[2020-02-28] MEDS: INFLUENZA VACCINE (for 3y+) 0.5 ML DOSE IMVAC ONE ×2 (04:58→06:00)
[2020-02-28 06:17] LABS: Protime INR 1.07
[2020-02-28 06:48] LABS: ALT/SGPT 112 U/L (12-78); AST/SGOT 58 U/L (15-37); Alkaline Phosphatase 161 U/L (45-117); BUN Blood Urea Nitrogen 18 mg/dL (7-18); Bicarbonate 28 mmol/L (21-32); Glucose Level 122 mg/dL (74-106); Potassium 3.7 mmol/L (3.5-5.1); Sodium Level 142 mmol/L (136-145); Troponin I < 0.02 ng/mL (0.0-0.045)
[2020-02-28 06:53] LABS: Bilirubin Total 5.4 mg/dL (0.2-1.0)
[2020-02-28] MEDS ORDERED: LORazepam 2 MG/ML VIAL IV ONE (07:13)
[2020-02-28] MEDS ORDERED: LORazepam 2 MG/ML VIAL ONE (07:32)
[2020-02-28] MEDS ORDERED: PNEUMOCOCCAL VACCINE 0.5 ML IMVAC ONE (08:00)
--- NOTE | 2020-02-28 08:33 | RAD REPORT ---
EXAM DESCRIPTION: MRICholangiogram02/28/2020 7:57 am CLINICAL HISTORY: Abdominal pain COMPARISON: February 2020 and abdominal ultrasound and CT abdomen TECHNIQUE: Magnetic resonance cholangiogram was performed.3D MIP reconstruction performed FINDINGS: Cholecystectomy Common bile duct is dilated. 8 millimeter filling defect within the distal common bile duct likely a stone. Pancreatic duct is normal caliber IMPRESSION: Choledocholithiasis. The common bile duct is dilated
--- NOTE | 2020-02-28 08:52 | P.PN ---
Subjective Date of Service: 02/28/20 Primary Care Provider: Diana Villatoro Chief Complaint: Abdominal pain Physical Examination - Vital Signs Temperature: 97.5 F Blood Pressure: 132/60 Pulse: 77 Respirations: 20 Pulse Ox (%): 95 - Studies Laboratory Data (last 24 hrs) 02/27/20 18:25: PT 13.0 H, INR 1.10 02/27/20 18:25: WBC 8.9, Hgb 13.7, Hct 42.0, Plt Count 172 02/27/20 18:25: Sodium 140, Potassium 3.5, BUN 19 H, Creatinine 0.91, Glucose 181 H, Magnesium 2.1, Total Bilirubin 5.9 H*, AST 97 H, ALT 152 H, Alkaline Phosphatase 193 H Assessment & Plan Discharge Plan: Home Plan to discharge in: 48 Hours Physician Review Additional Text: Impression: Abdominal pain with elevated liver function and hyperbilirubinemia secondary to choledocholithiasis and dilated common bile duct complicated with history of congenital absence of gallbladder History of hepatitis-C treated in the past Hypertension Hyperlipidemia Plan: Abdominal pain with elevated liver function and hyperbilirubinemia secondary to choledocholithiasis and dilated common bile duct complicated with history of congenital absence of gallbladder: Patient stable this time. Pain still present but stable with medication. COVID/Influenza negative. LFTs elevated. Total bilirubin 5.4, AST 58, ALT 112, alk-phos 161. Lipase within normal range. MRCP shows common bile duct dilated. 8 mm filling defect within the distal common bile duct likely stone noted. Pancreatic duct appeared normal. Patient with choledocholithiasis. Case discussed with GI. GI not able to do ERCP here. GI recommends transfer to [facility]-level center for ERCP. Continue IV antibiotic therapy. Continue IV fluids. Provide medication for pain. Patient currently NPO. Will initiate transfer. Await approval. History of hepatitis-C treated in the past: Patient treated in the past for hepatitis-C. Hypertension: Will provide medication IV. Hyperlipidemia: Hold medication at this time. Time Spent Managing Pts Care (In Minutes): 55
[2020-02-28] MEDS: NA CHLORIDE 0.9% 1,000 ML IV SCH (11:19)
[2020-02-28 14:15] LABS: Absolute Lymphocytes (CBC) 0.5 K/uL (0.7-4.9); Basophils % 0.1 % (0-1.3); Hematocrit 35.2 % (36.0-45.0); Lymphocytes % 10.8 % (15.3-44.8); MPV 8.9 fL (7.6-11.3); RBC Red Blood Cell Count 3.71 M/uL (3.86-4.86)
[2020-02-28 16:57] VITALS: BP 142/65; TEMP 98.1
--- NOTE | 2020-02-28 17:15 | EKG ---
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
--- NOTE | 2020-02-28 17:37 | P.DS ---
Admission Date: 02/28/20 Discharge Date: 02/28/20 Primary Care Provider: Diana Villatoro Disposition: TRANSFER TO [facility] Discharge Condition: GOOD Reason for Admission: Abdominal pain Consultations: GI-Dr. Robertson Procedures: CT scan: FINDINGS: Fatty liver. Cholecystectomy. Common bile duct is prominent. The spleen, pancreas and adrenals unremarkable. Mild renal cortical thinning perhaps secondary prior inflammation. A 2 millimeter nonobstructing right renal calculus. There is no evidence of diverticulitis. Spondylosis involves lumbar spine resulting spinal stenosis. Hysterectomy IMPRESSION: The common bile duct is prominent. This probably is physiologic in this patient status post cholecystectomy. However, pathology such as a stricture can also result in this appearance and should be correlated clinically and with appropriate lab values Fatty liver ABUS: FINDINGS: Cholecystectomy Common bile duct is dilated. 8 millimeter filling defect within the distal common bile duct likely a stone. Pancreatic duct is normal caliber IMPRESSION: Choledocholithiasis. The common bile duct is dilated MRCP: FINDINGS: Gallbladder is absent. The proximal common bile duct better seen on the CT scan measures 19 millimeters. The distal common bile duct is normal caliber. IMPRESSION: Prominent proximal common bile duct. This can be physiologic in a patient status post cholecystectomy. Pathology such as a stricture can also result in this appearance and should be correlated clinically with appropriate lab values Medical Problem List: Abdominal pain with elevated liver function and hyperbilirubinemia secondary to choledocholithiasis and dilated common bile duct complicated with history of congenital absence of gallbladder Bacteremia with positive blood cultures 4/4 showing Gram-negative rods History of hepatitis-C treated in the past Hypertension Hyperlipidemia Brief History of Present Illness: 64-year-old female presented with abdominal pain. Patient found have elevated liver function tests and bili Santoro. Abdominal CT showed dilated common bile duct. Patient was admitted for further evaluation and treatment. Hospital Course: Patient presented with Abdominal pain with elevated liver function and hyperbilirubinemia. Patient with history of congenital absence of gallbladder. This was secondary to choledocholithiasis and dilated common bile duct. This was confirmed with abdominal ultrasound, CT scan and MRCP. Case discussed in detail with GI. GI recommended ERCP. This could not be done by current GI. Patient was transferred to high-level [place] for further evaluation and treatment. Patient also found to have bacteremia with 4/4 blood cultures positive for Gram-negative rods. This may be related to inflammation to the b ile duct area. This was discussed with accepting hospitalist and GI specialist. Both agree with current plan of care to transfer patient for ERCP. Patient currently on IV Zosyn. Continue IV fluids. Patient currently NPO in preparation for procedure. Patient will be transferred for high-level care. Patient with hypertension, hyperlipidemia, history of hepatitis-C treat in the past. This appears stable. Vital Signs/Physical Exam: Temp Pulse Resp BP Pulse Ox 98.1 F 77 20 142/65 H 96 02/28/20 16:00 02/28/20 16:00 02/28/20 16:00 02/28/20 16:00 02/28/20 16:00 General: Alert, In no apparent distress, Oriented x3, Cooperative HEENT: Atraumatic Neck: Supple Respiratory: Clear to auscultation bilaterally, Normal air movement Cardiovascular: Normal pulses, Regular rate/rhythm Gastrointestinal: Normal bowel sounds, No masses, No rebound, No guarding, Tenderness (Right upper quadrant and epigastric pain noted.) Neurological: Normal speech, Normal strength at 5/5 x4 extr, Normal tone, Normal affect Laboratory Data at Discharge: WBC 5.1 K/uL (4.3-10.9) D 02/28/20 13:53 Hgb 11.5 g/dL (12.0-15.0) L 02/28/20 13:53 Hct 35.2 % (36.0-45.0) L D 02/28/20 13:53 Plt Count 145 K/uL (152-406) L 02/28/20 13:53 PT 12.6 SECONDS (9.5-12.5) H 02/28/20 06:00 INR 1.07 02/28/20 06:00 Sodium 142 mmol/L (136-145) 02/28/20 06:00 Potassium 3.7 mmol/L (3.5-5.1) 02/28/20 06:00 BUN 18 mg/dL (7-18) 02/28/20 06:00 Creatinine 0.72 mg/dL (0.55-1.3) 02/28/20 06:00 Glucose 122 mg/dL (74-106) H 02/28/20 06:00 Magnesium 2.0 mg/dL (1.8-2.4) 02/28/20 06:00 Total Bilirubin 5.4 mg/dL (0.2-1.0) H* 02/28/20 06:00 AST 58 U/L (15-37) H 02/28/20 06:00 ALT 112 U/L (12-78) H 02/28/20 06:00 Alkaline Phosphatase 161 U/L (45-117) H 02/28/20 06:00 Troponin I < 0.02 ng/mL (0.0-0.045) 02/28/20 06:00 Lipase 81 U/L (73-393) 02/28/20 06:00 Home Medications: Azithromycin 250 mg PO DAILY 03/08/18 Buspirone HCl [Buspar] 10 mg PO BID 03/08/18 Losartan Potassium 25 mg PO BID 03/08/18 Meloxicam 15 mg PO DAILY 03/08/18 Oseltamivir [Tamiflu] 75 mg PO DAILY 03/08/18 Paroxetine HCl [Paxil] 20 mg PO DAILY 03/08/18 Ropinirole HCl 1 mg PO TID 03/08/18 Albuterol Sulfate [Ventolin Hfa] 8 gm IH Q8HP PRN #1 [id number] 03/09/18 Prednisone [Sterapred Ds] 10 mg PO BID #9 tab.ds.pk 03/09/18 Patient Discharge Instructions: Patient will be transferred for ERCP due to choledocholithiasis. Patient with history of congenital absence of gallbladder. Patient currently on IV Zosyn due to bacteremia. Blood cultures pending at this time. Case discussed with hospitalist. Diet: NPO Activity: Ad trevin Followup: Jessica Villatoro NP [Primary Care Provider] - Time spent managing pt's care (in minutes): 55
--- NOTE | 2020-02-29 13:57 | CON ---
Reason For Consultation: Elevated liver enzymes, abnormal imaging. History Of Presenting Illness: The patient is a 64-year-old woman with a history of hepatitis C, pos sible cirrhosis, treated before, who has been noncompliant with followup. Came to the ER with compla ints of chest pain. Labs revealed elevated bilirubin of 5.6. Imaging revealed mild dilation of bile duct. GI was consulted. When I saw the patient, the patient did not have any symptoms. She alread y had an MRCP, which showed an 8 mm filling defect in the distal common bile duct. Past Medical History: Restless legs syndrome, anxiety, depression, hepatitis C, status post treatmen t, dyslipidemia. Past Surgical History: Colostomy as an infant, history of kidney stone surgery. Family History: Noncontributory. Social History: Admits to alcohol use. Denies smoking or drugs. Review of Systems: GI: As in HPI, otherwise negative. Remainder of 10-point review of systems negative. Allergies: TO CODEINE AND HYDROCODONE. Home Medications: As in the chart. Physical Examination: Vital signs reviewed. Afebrile, normotensive, not tachycardic, not tachypneic. Laboratory Data: Reviewed, as mentioned above. No leukocytosis in addition to elevated bilirubin an d ALT, AST. Impression: A 64-year-old female with multiple medical problems, history of hepatitis C, status post treatment, now presents with elevated liver enzymes and MRCP showing an 8 mm filling defect with cho ledocholithiasis. The patient does report a congenital absence of gallbladder. She states that it w as not removed surgically. Plan: Continue current management. She will need to be transferred to a higher level of care for ER CP for evaluation of distal common bile duct. This was discussed with the patient as well as the the [facility]. Continue antibiotics for now. The blood culture was positive for gram-negatives. US/MODL Voice ID: [id number] Report ID: [id number]
[2020-03-01 19:51] LABS: HBsAG Nonreactive (Nonreactive)
[2020-03-02 19:45] LABS: Hep C Virus RNA (PCR)log <1.18 log IU/mL
== END 2020-02-28 18:45 | disposition short-term general hospital (02) | DRG 445 ==
LOC: ER 17:33 → ERHOLD 21:04 → 2ND 22:17 → OBSVTOIN 02-28 09:06
PROVIDERS: ADMIT Family Medicine; ATTEND Family Medicine
DX: K80.50 Calculus of bile duct without cholangitis or cholecystitis without obstruction (principal); R78.81 Bacteremia; K83.8 Other specified diseases of biliary tract; K76.0 Fatty (change of) liver, not elsewhere classified; E78.5 Hyperlipidemia, unspecified; M25.559 Pain in unspecified hip; E80.6 Other disorders of bilirubin metabolism; I10 Essential (primary) hypertension; G89.29 Other chronic pain; R79.89 Other specified abnormal findings of blood chemistry; Z88.5 Allergy status to narcotic agent; Z90.710 Acquired absence of both cervix and uterus; Z90.49 Acquired absence of other specified parts of digestive tract; Z91.19 Patient's noncompliance with other medical treatment and regimen; Z79.52 Long term (current) use of systemic steroids; Z79.899 Other long term (current) drug therapy; Z20.822 Contact with and (suspected) exposure to COVID-19
CPT/HCPCS: 0240U; 36415; 71045; 71275; 74177; 74181; 76705; 80048; 80053; 80074; 80076; 82140; 83605; 83690; 83735; 83880; 84145; 84484; 85025; 85610; 87040; 87077; 87186; 87205; 87522; 93005; 96374; 96375; 99285; J0692; J2270; J2405; J2543; J3010; J7030; Q9967

== ENCOUNTER 2020-10-20 17:04 | Inpatient (IN) | payer OTHER ==
--- OUTSIDE RECORDS SUMMARY | 2020-10-20 17:09 | XMS REPORT | Continuity of Care Document ---
:1955 Author Organization [facility] t Address [address] [place] [address] Care Team Providers Name Role Phone Riaz Luz MD. Primary Care Physician Camille TERRELL SPancho Attending Clinician Norma KONG Attending Clinician Unavailable Becky Nunn MD Attending Clinician [phone] Charan TERRELL Attending Clinician Kim Ibrahim MD Attending Clinician BECKY NUNN Attending Clinician Unavailable Brice Barnett MD Attending Clinician New Vidales MD Attending Clinician Caden Suh MD Attending Clinician Vicente Luz MD Attending Clinician Kalyan Arthur Attending Clinician Chito Israel MD Attending Clinician MD Riaz LUZ. Attending Clinician Unavailable Tashi WATSON Attending Clinician Unavailable MD Sofiya DENNIS Attending Clinician Unavailable KIM IBRAHIM Admitting Clinician Unavailable JAMARCUS Admitting Clinician Unavailable MD JAMARCUS A. Admitting Clinician Unavailable CAMILLE Admitting Clinician Unavailable MD CAMILLE S. Admitting Clinician Unavailable Payers Payer Name Policy Type Policy Number Effective Date Expiration Date S ource Problems Condition Condition Condition Status Onset Resolution Last Treating Co mments Source Name Details Category Date Date Treatment Clinician Date Choledocho Choledocho Disease Active C [facility] lithiasis lithiasis 1- [facility] - [facility] 00 Center No known No known Disease Metho di active active st problems problems Hospit a l Allergies, Adverse Reactions, Alerts Allergy Allergy Status Severity Reaction(s) Onset Inactive Treating Comm ents Source Name Type Date Date Clinician Codeine Propensi Active Swelling 2019-02 Metho di ty to 0-21 st adverse 00:00: Hospita reaction 00 l s to drug Hydrocod Drug Active Hives, [facility] one-Acet Allergy Itching 1 [facility] - aminophe 00:[facility]: Medical n 00 Center Codeine Drug Active Hives, [facility] Allergy Swelling 3 [facility] - [facility] 00 Center Family History Family Member Diagnosis Comments Start Date Stop Date Source Natural father Diabetes [facility] Maternal No Known Problems [facility] Maternal Breast cancer [facility] Natural mother Atrial fibrillation [facility] Natural sister Heart block [facility] Social History Social Habit Start Date Stop Date Quantity Comments Source History SDOH [facility] - Alcohol Frequency Medical Center History SDOH [facility] - Alcohol Std Drinks Medica l Center History SDOH [facility] - Alcohol Binge Medical Doug ter Exposure to Not sure [facility] - SARS-CoV-2 (event) Medica l Center Alcohol intake 2020-10-10 2020-10-10 Current drink[facility]00 alcohol (finding) Medical Center History SDOH 2020-10-10 2020-10-[address] [facility] - Alcohol Comment 00:00:00 00:00:00 Medical C enter Tobacco use and 2020-02-28 2020-02-[address] [facility] - exposure 00:00:00 00:00:00 Medical Center Sex Assigned At [address] [facility] - 00:00:00 00:[facility]:00 Medical Center Smoking Status Start Date Stop Date Source Never smoker [facility] Medications Ordered Filled Start Stop Current Ordering Indication Dosage Frequency Signature Comments Components Source Medication Medication Date Date Medication? Clinician (SIG) Name Name losartan Yes 100mg QD Take [address] (COZAAR) 50 9- mg by [facility] - MG tablet 14:21: mouth Medical 00 daily. Center rOPINIRole Yes 1mg Q.05699020 Take [address] (REQUIP) 1 10-10 [id number] by mouth 3 [facility] - MG tablet 14:21: 3D (three) Medic al 00 times Center daily. escitalopra Yes 20mg QD Take [address] m oxalate 10-10 by mouth [facility]ukes - (LEXAPRO) 14:21: every Medical 20 MG 00 evening. Center tablet potassium Yes 10meq QD Take 10 Meth brad chloride 3-[address] (K-DUR) 10 18:28: mouth Hospit a MEQ CR 43 daily. l tablet chlorthalid Yes 25mg QD Take 25 mg Methodi one 3-[address] (HYGROTEN) 18:28: daily. Hospi ta 25 MG 43 l tablet valACYclovi Yes 1000mg Q.5D Take 1,000 Methodi r (VALTREX) 3-[address] 1000 MG 18:28: mouth 2 Hospita tablet 43 (two) l times a day. rOPINIRole Yes 1mg Q.05050178 Take 1 mg Methodi (REQUIP) 1 3-[id number] MG tablet 18:21: 3D (three) Hospi ta 13 times a l day. escitalopra Yes 20mg QD Take 20 mg Methodi m (LEXAPRO) 3-[address] 20 MG 18:21: nightly. Hospita tablet 13 l amLODIPine Yes TAKE 1 Metho di (NORVASC) 2-[address] 10 mg 00:00: MOUTH Hospita tablet 00 EVERY DAY l losartan Yes TAKE 1 Methodi (COZAAR) 2-[address] 100 MG 00:00: MOUTH Hospita tablet 00 EVERY DAY l losartan 2020-2020- No 100mg QD Take 1 Metho di (COZAAR) 03-15- tablet st 100 MG 00:00: 00:00 (100 mg Hospita tablet 00 :00 total) by l mouth daily. amLODIPine 10mg QD Take 1 Meth brad (NORVASC) 03-15-06 tablet (10 st 10 mg 00:00: 00:00 mg total) Hospit a tablet 00 :00 by mouth l daily. ciprofloxac No 500mg Q.5D Take [address] in HCl 03-02 tablet Lukes - (CIPRO) 500 00:00: 23:59 (500 mg Me dical MG tablet 00 :00 total) by Cente r mouth 2 (two) times daily for 7 days. furosemide 2019-02 TAKE 1 Meth brad (LASIX) 20 2-24 03-[address] mg tablet 00:00: 00:00 MOUTH Hospit a 00 :00 EVERY DAY l furosemide 2019-02 20mg QD Take 1 Meth brad (Lasix) 20 1-24 12-24 tablet (20 st mg tablet 00:00: 00:00 mg total) Ho spita 00 :00 by mouth l daily. HYDROcodone 2019-02 70478 1{tbl} Q6H Take 1 Methodi -acetaminop 02-20-[address] hen (NORCO) 00:00: 00:00 mouth Hosp huy 7.5-325 mg 00 :00 every 6 l per tablet (six) hours as needed for moderate pain for up to 7 days .acute pain. Max Daily Amount: 4 tablets losartan 2019-02 TAKE 2 Method i (COZAAR) 50 0-29 02-04 TABLETS BY s t MG tablet 00:00: 00:00 MOUTH Hospit a 00 :00 EVERY DAY l losartan 2019-02 No 50mg Q.5D Take 50 mg Me thodi (COZAAR) 50 0-23 10-23 by mouth 2 s t MG tablet 13:15: 00:00 (two) Hospit a 25 :00 times a l day. chlorthalid 2019-02 No 25mg QD Take 1 Met hodi one 0-23 11-24 tablet (25 st (HYGROTEN) 00:00: 00:00 mg total) H ospita 25 MG 00 :00 by mouth l tablet daily for 30 days. losartan 2019-02 No 100mg QD Take 2 Metho di (COZAAR) 50 0-23 10-[address] MG tablet 00:00: 00:00 (100 mg Hosp huy 00 :00 total) by l mouth daily. Vital Signs Vital Name Observation Time Observation Value Comments Source Body height 2020-10-10 14:26:00 160 cm [facility] Body weight 2020-10-10 14:26:00 86.183 kg [facility] BMI 2020-10-10 14:26:00 33.66 kg/m2 [facility] Systolic blood 2020-05-02 18:26:00 137 mm[Hg] [facility] pressure Diastolic blood 2020-05-02 18:26:00 71 mm[Hg] [facility] pressure Heart rate 2020-05-02 18:26:00 72 /min [facility] Body height 2020-05-02 18:26:00 165.1 cm [facility] Body weight 2020-05-02 18:26:00 90.266 kg [facility] BMI 2020-05-02 18:26:00 33.12 kg/m2 [facility] Heart rate 2020-03-02 13:28:00 60 /min [facility] Respiratory rate 2020-03-02 13:28:00 16 /min [facility] Oxygen saturation in 2020-03-02 13:28:00 94 /min [facility] Arterial blood by Medical Ce nter Pulse oximetry Systolic blood 2020-03-02 11:46:00 160 mm[Hg] [facility] Diastolic blood 2020-03-02 11:46:00 68 mm[Hg] [facility] Body temperature 2020-03-02 11:46:00 36 Lexi [facility] Body temperature 2019-12-22 20:59:00 36.11 Lexi [facility] Respiratory rate 2019-12-22 20:59:00 68 /min [facility] Oxygen saturation in 2019-12-22 20:59:00 94 /min [facility] Arterial blood by Pulse oximetry Procedures Procedure Date / Time Performing Clinician Source Performed CBC W/PLT COUNT & AUTO 2020-03-02 10:32:00 [facility] COMPREHENSIVE METABOLIC 2020-03-02 10:32:[facility] 2020-03-02 10:32:00 [facility] CBC W/PLT COUNT & AUTO 2020-03-02 10:32:00 [facility] POCT-GLUCOSE METER 2020-03-01 22:43:00 [facility] POCT-GLUCOSE METER 2020-03-01 18:42:00 [facility] REPORT OF PROCEDURE - 2020-03-01 17:28:39 Raissa Suh [facility] [place] ERCP 2020-03-01 [facility]:14[facility]BILIARY STENT 2020-03-01 16:39:00 Raissa Suh [facility] PROCEDURE W/ C-ARM 2020-03-01 16:39:00 [facility],PAPILLOTOMY 2020-03-01 16:39:00 Raissa Suh [facility] ERCP,BALLOON SWEEPING 2020-03-01 16:39:00 Raissa Suh [facility] BASIC METABOLIC PANEL (7) 2020-02-29 03:33:00 Shama Ibrahim [facility] CBC W/PLT COUNT & AUTO 2020-02-29 03:33:00 Shama Ibrahim [facility] ABORH, MANUAL 2020-02-29 03:33:00 Hattie Morocho [facility] CBC W/PLT COUNT & AUTO 2020-02-29 03:33:00 Patrice Shama [facility] SARS-COV2/RT-PCR ([facility] & 2020-02-28 23:10:[address] [facility] - REF LABS) [facility] BLOOD CULTURE 2020-02-28 23:09:00 Patrice Shama [facility] BLOOD CULTURE 2020-02-28 23:00:00 [facility] TYPE AND SCREEN, 2020-02-28 23:00:00 Patrice Shama [facility] es - AUTOMATED [facility] PROTHROMBIN TIME/INR 2020-02-28 22:59:00 [facility] 2020-02-28 22:59:00 Patrice Shama [facility] HEPATIC FUNCTION PANEL 2020-02-28 22:59:00 Shama Ibrahim [facility] CBC W/PLT COUNT & AUTO 2020-02-28 22:59:00 Patrice Shama [facility] BASIC METABOLIC PANEL (7) 2020-02-28 22:59:00 Shama Ibrahim [facility] CBC W/PLT COUNT & AUTO 2020-02-28 22:59:00 Patrice Shama [facility] POCT-GLUCOSE METER 2020-02-28 21:19:00 Grace Nunn [facility] LIPID PANEL 2020-02-20 14:27:00 [facility]LECTIVE 2019-12-22 17:52:17 Robert Beltran Ho spital ENDOTRACHEAL AIRWAY [employer] LILIAN ROBOTIC ASSISTED 2019-12-22 17:26:00 [facility] LAPAROSCOPIC VENTRAL HERNIA COVID-19 QUALITATIVE 2019-12-20 18:23:00 [facility] RT-PCR CV LEFT HEART CATH LV 2019-12-02 12:59[facility]00 [facility] BASIC METABOLIC PANEL 2019-12-02 11:14:00 [facility] HC COMPLETE BLD COUNT 2019-12-02 11:14:00 [facility] W/AUTO DIFF PARTIAL THROMBOPLASTIN 2019-12-02 11:14:00 [facility] TIME (PTT) PROTHROMBIN TIME WITH INR 2019-12-02 11:14:00 [facility] ESTIMATED GFR 2019-12-02 11:14:00 [facility] LIPID PANEL 2019-12-02 11:14:00 [facility] ECG 12-LEAD 2019-12-02 10:28:10 [facility] COVID-19 QUALITATIVE 2019-12-01 16:42:00 [facility] RT-PCR CT ABDOMEN W CONTRAST 2019-12-01 15:52:22 [facility] POC CREATININE 2019-12-01 15:31:00 [facility]IM[facility] GFR 2019-12-01 15:31:00 [facility] 12-LEAD 2019-11-30 18:30:43 [facility] Plan of Care Planned Activity Planned Date Details Comments Source Future Scheduled 2020-10-10 INFLUENZA VACCINE (#1[facility]00 [code = INFLUENZA Medical Ce nter VACCINE (#1)] Future Scheduled 2020-08-[address] [facility] - Test 00:00:00 WELLNESS (YEAR 2 or Medical Center FIRST YEAR if no IPPE) [code = MEDICARE ANNUAL WELLNESS (YEAR 2 or FIRST YEAR if no IPPE)] Future Scheduled 2020-02-[address] [facility] - Test 00:00:00 (12+) [code = Medical Center DEPRESSION SCREENING (12+)] Future Scheduled 2020-02-10 FALLS RISK SCREENING [facility] - Test 00:00:00 [code = FALLS RISK Medical C enter SCREENING] Future Scheduled 2019-08-20 PNEUMOCOCCAL 65+ YRS [facility] - Test 00:00:00 (1 of 1 - Medical Center [id number] PCV13) [code = PNEUMOCOCCAL 65+ YRS (1 of 1 - [id number] PCV13)] Future Scheduled 2004 SHINGLES VACCINES ([address] [facility] - Test 00:00:00 of 2) [code = SHINGLES Medic al Center VACCINES (1 of 2)] Future Scheduled 1973 DTAP/TDAP/TD VACCINES [facility] Test 00:00:00 (1 - Tdap) [code = Medical C enter DTAP/TDAP/TD VACCINES (1 - Tdap)] Future Scheduled 1972 HEPATITIS C [facility]CRE[facility]ING [facility] Test 00:00:00 [code = HEPATITIS C Medical Center SCREENING] Future Scheduled 1966 COVID-19 VACCINE (1) [facility] - Test 00:00:00 [code = COVID-[address] VACCINE (1)] Future Scheduled [address] [facility] - Test 00:00:00 malignant neoplasm of Medica l Center breast (procedure) [code = 642696541] Future Scheduled [address] [facility] - Test 00:00:00 [facility] colon (procedure) [code = 236056985] Future Scheduled COVID-19 [facility]ACCINE (1) [facility] [code = COVID-19 VACCINE (1)] Future Scheduled [facility] Test (procedure) [code = 557476285] Future Scheduled BREAST CANCER [facility] Test SCREENING [code = BREAST CANCER SCREENING] Future Scheduled COLONOSCOPY [facility]CREENING [facility] [code = COLONOSCOPY SCREENING] Future Scheduled SHINGLES VACCINES (#1) [facility] Test [code = SHINGLES VACCINES (#1)] Future Scheduled 65+ [facility]OCOCCAL [facility] Test VACCINE (1 of 1 - PPSV23) [code = 65+ PNEUMOCOCCAL VACCINE (1 of 1 - PPSV23)] Future Scheduled INFLUENZA VACCINE [facility] Test [code = INFLUENZA VACCINE] Encounters Start End Encounter Admission Attending Care Care Encounter Source Date/Time Date/Time Type Type Clinicians Facility Department ID 2020-10-10 2020-10-[address] [facility] [id number] 14:25:00 23:59:00 Encounter [facility] 2020-10-10 2020-10-10 Travel [facility] [id number] [facility]00 00:00:00 [facility] 2020-05-02 2020-05-02 Office Dennis, 1.2.840.1 [id number] Methodi 12:41:45 16:11:13 Visit Ambrocio SawPancho 11721.1.[address] 3.430.2.7 Hospit a .3.758509 l .8 2020-05-02 2020-05-02 Outpatient [facility] [id number] [address] [place] [address] 00:00:00 00:00:[address] 2020-05-02 2020-05-02 Travel 1.2.840.1 1.2.045.692 [id number] Methodi 00:00:00 00:00:[address] 3.430.2.7 0.2.7.3.698 spita .3.180881 084.8 l .8 2020-03-17 2020-03-17 Refill Dennis, 1.2.840.1 [id number] Methodi 00:00:00 00:00:00 Ambrocio Arri[address] 3.430.2.7 Hospit a .3.482823 l .8 2020-03-15 2020-03-15 Telephone [facility], 1.2.840.1 [id number] Methodi 00:00:00 00:00:[address] 3.430.2.7 Hospit a .3.109685 l .8 2020-02-28 2020-03-02 [facility] [id number] [facility] 19:44:00 17:19:00 Encounter Cristino Farrar [facility] 2020-03-01 2020-03-01 Anesthesia Maynor Barnett [facility] [id number] 16:39:00 17:27:00 Event Yoav Vidales [facility] 2020-03-01 2020-03-01 Surgery Vikash, [facility] [id number] 15:05:00 16:05:00 [facility] 2020-02-28 2020-02-28 Travel [facility] [id number] [facility] 00:[facility]00 00:00:00 [facility] 2020-02-22 2020-02-22 Telephone Blindman, 1.2.840.1 [id number] Methodi 00:00:00 00:00:[address] 3.430.2.7 Hospit a .3.993921 l .8 2020-02-01 2020-02-01 Refill Camille, 1.2.840.1 [id number] Methodi 00:00:00 00:00:00 [address] 3.430.2.7 Hospit a .3.422254 l .8 2020-01-03 2020-01-03 Office Camille, 1.2.840.1 [id number] Methodi 13:01:02 13:34:16 Visit Ambrocio Arriaza 76371.1.[address] 3.430.2.7 Hospit a .3.449150 l .8 2020-01-03 2020-01-03 Travel 1.2.840.1 1.2.063.332 [id number] Methodi 00:00:00 00:00:[address] 3.430.2.7 0.2.7.3.698 Ho spita .3.428066 084.8 l .8 2020-01-03 2020-01-03 Outpatient CAMILLE [facility] [id number] 0[address] [place] 00:00:00 00:00:[address] 2019-12-22 2019-12-22 [facility] 1.2.840.1 [id number] Methodi 08:42:00 15:52:00 Encounter Melanie Zhang 41387.1.[address] 3.430.2.7 Hospit a .3.467995 l .8 2019-12-22 2019-12-22 Anesthesia Duane Arthur Kalyan 1.2.840.1 [id number] Methodi 11:26:00 13:14:00 Event Maynor Israel 72462.1.[address] 3.430.2.7 Hospit a .3.959961 l .8 2019-12-22 2019-12-22 Surgery [facility], 1.2.840.1 [id number] Methodi 10:30:00 11:30:00 Melanie Zhang 12657.1.[address] 3.430.2.7 Hospit a .3.216065 l .8 2019-12-22 2019-12-22 Travel 1.2.840.1 1.2.395.422 [id number] [id number] Methodi 00:00:00 00:00:[address] 3.430.2.7 0.2.7.3.698 Ho spita .3.056283 084.8 l .8 2019-12-22 2019-12-22 Outpatient [facility] 734 [id number] 830 [place] 00:00:00 00:00:00 MELANIE [address] 2019-12-20 2019-12-20 Outpatient [facility] [id number] 079 [place] 00:00:00 00:00:[address] 2019-12-20 2019-12-20 Travel 1.2.840.1 1.2.627.822 [id number] Methodi 00:00:00 00:00:[address] 3.430.2.7 0.2.7.3.698 Ho spita .3.949569 084.8 l .8 2019-12-20 2019-12-20 Orders Vitucci, 1.2.840.1 [id number] Methodi 00:00:00 00:00:00 Only Aleksandra 98554.1.[address] 3.430.2.7 Hospit a .3.295486 l .8 2019-12-16 2019-12-16 Travel 1.2.840.1 1.2.542.044 [id number] Methodi 00:00:00 00:00:[address] 3.430.2.7 0.2.7.3.698 Ho spita .3.641305 084.8 l .8 2019-12-07 2019-12-07 Refill [facility] 1.2.840.1 [id number] Methodi 00:00:00 00:00:00 Ambrocio Arriaza [address] 3.430.2.7 Hospit a .3.869618 l .8 2019-12-02 2019-12-02 [facility] 1.2.840.1 [id number] Methodi 05:27:00 11:30:00 Encounter Ambrocio [place]. 01226.1.[address] 3.430.2.7 Hospit a .3.150744 l .8 2019-12-02 2019-12-02 Surgery [facility] 1.2.840.1 [id number] Methodi 07:30:00 09:00:00 Ambrocio [place] 70682.1.[address] 3.430.2.7 Hospit a .3.121079 l .8 2019-12-02 2019-12-02 Travel 1.2.840.1 1.2.444.797 [id number] Methodi 00:00:00 00:00:[address] 3.430.2.7 0.2.7.3.698 Ho spita .3.165999 084.8 l .8 2019-12-02 2019-12-02 Outpatient [place] [id number] [address] [place] [address] 00:00:00 00:00:00 AMBR[address] 2019-12-01 2019-12-01 [facility], 1.2.840.1 [id number] Methodi 07:53:08 23:59:00 Encounter Melanie Zhang 88873.1.[address] 3.430.2.7 Hospit a .3.428111 l .8 2019-12-01 2019-12-01 Outpatient [facility] [id number] 156 [place] 00:00:00 00:00:00 AMBROC[address] 2019-12-01 2019-12-01 Prep for Dennis, 1.2.840.1 [id number] Methodi 00:00:00 00:00:00 Surgery Ambrocio Arriaza 14955.1.[address] 3.430.2.7 Hospit a .3.462191 l .8 2019-12-01 2019-12-01 Telephone Blindsullivan, 1.2.840.1 [id number] Methodi 00:00:00 00:00:[address] 3.430.2.7 Hospit a .3.909878 l .8 2019-12-01 2019-12-01 Outpatient [facility] [id number] [address] [place] [address] 00:00:00 00:00:00 MELANIE [address] 2019-11-30 2019-11-30 Office Dennis, 1.2.840.1 [id number] Methodi 13:05:15 14:02:20 Visit Ambrocio Arriaza 97212.1.[address] 3.430.2.7 Hospit a .3.083336 l .8 2019-11-30 2019-11-30 Prep for Dennis, 1.2.840.1 [id number] Methodi 00:00:00 00:00:00 Surgery Ambrocio Arriaza 22335.1.[address] 3.430.2.7 Hospit a .3.183101 l .8 2019-11-30 2019-11-30 Travel 1.2.840.1 1.2.133.785 [id number] Methodi 00:00:00 00:00:[address] 3.430.2.7 0.2.7.3.698 Ho spita .3.080354 084.8 l .8 2019-11-30 2019-11-30 Outpatient DENNIS, [facility] [id number] 916 [place] 00:00:00 00:00:[address] 2019-11-28 2019-11-28 Travel 1.2.840.1 1.2.405.107 [id number] [id number] Methodi 00:00:00 00:00:[address] 3.430.2.7 0.2.7.3.698 Ho spita .3.413878 084.8 l .8 2019-11-28 2019-11-28 Transcribe Luz, 1.2.840.1 [id number] Methodi 00:00:00 00:00:00 Orders Melanie A. 86439.1.[address] 3.430.2.7 Hospit a .3.074206 l .8 Results Test Description Test Time Test Comments Results Result Comments Source Blood Culture - Routine (Right Venipuncture) 2020-03-05 00:0 0:00 Test Item Value Reference Range Interpretation Comme nts Result (test code = 6463-4) No growth in 5 days [id number]:00:00 Test Item Value Reference Range Interpretation Comments CULTURE (BEAKER) (test No growth in 5 days code = 1095) BLOOD [id number] 00:00:00 Test Item Value Reference Range Interpretation Comments CULTURE (BEAKER) (test No growth in 5 days code = 1095) Comprehensive metabolic [id number] 11:07:00 Test Item Value Reference Range Interpretation Comments Protein, Total (test 6.8 See_Comment Specime n slightly code = 2885-2) hemolyzed [Automated message] The system which generated this result transmit frances reference range : 6.0 - 8.3 gm/dL . The reference range was not u sed to interpret th is result as normal/abnormal . Albumin (test code = 3.1 g/dL 3.5-5.0 L Specime n slightly 02478-3) hemolyzed Alkaline Phosphatase 196 U/L 40-150 H (test code = 6768-6) Total Bilirubin (test 2.7 mg/dL 0.2-1.2 H Specim en slightly code = 1974-2) hemolyzed Sodium (test code = 142 meq/L 668-394 0871-2) Potassium (test code 3.8 meq/L 3.5-5.1 Specime n slightly = 2823-3) hemolyzed Chloride (test code = 108 meq/L 98-107 H 2075-0) CO2 (test code = 29 meq/L 22-29 8-9) BUN (test code = 10 mg/dL 7-21 3094-0) Creatinine (test code 0.69 mg/dL 0.57-1.25 Specim en slightly = 2160-0) hemolyzed Glucose (test code = 123 mg/dL 70-105 H 2345-7) Calcium (test code = 9.6 mg/dL 8.4-10.2 65049-1) AST (test code = 38 U/L 5-34 H Specimen sl ightly 1920-8) hemolyzed ALT (test code = 64 U/L 6-55 H Specimen sl ightly 1742-6) hemolyzed EGFR (test code = 85 mL/min/1.73 [place] [address]-8) NOT ACCURATE CREATININE CLEARANCE IN PREDICTING GLOMERULAR FILTRATION RATE . ESTIMATED GFR I S NOT APPLICABLE FOR DIALYSIS PATIEN TS. SUDHIR (test code = SUDHIR) Machine Hand ID - FRANCESCA C Lab Interpretation Abnormal (test code = 99040-5) [facility] 11:07:00 Test Item Value Reference Range Interpretation Comments Lipase (test code = 107 U/L 8-78 H 3040-3) SUDHIR (test code = SUDHIR) Machine Hand ID - FRANCESCA C Lab Interpretation (test Abnormal code = 66400-0) [facility] MET[facility]OL[facility] [id number] 11:07:00 Test Item Value Reference Range Interpretation Comments TOTAL PROTEIN 6.8 gm/dL 6.0-8.3 Specimen sligh tly (BEAKER) (test code = hemoly zed 770) ALBUMIN (BEAKER) 3.1 g/dL 3.5-5.0 L Specimen sl ightly (test code = 1145) hemolyzed ALKALINE PHOSPHATASE 196 U/L 40-150 H (BEAKER) (test code = 346) BILIRUBIN TOTAL 2.7 mg/dL 0.2-1.2 H Specimen sli ghtly (BEAKER) (test code = hemoly zed 377) SODIUM (BEAKER) (test 142 meq/L 136-145 code = 381) POTASSIUM (BEAKER) 3.8 meq/L 3.5-5.1 Specimen slightly (test code = 379) hemolyzed CHLORIDE (BEAKER) 108 meq/L 98-107 H (test code = 382) CO2 (BEAKER) (test 29 meq/L 22-29 code = 355) BLOOD UREA NITROGEN 10 mg/dL 7-21 (BEAKER) (test code = 354) CREATININE (BEAKER) 0.69 mg/dL 0.57-1.25 Specimen slightly (test code = 358) hemolyzed GLUCOSE RANDOM 123 mg/dL 70-105 H (BEAKER) (test code = 652) CALCIUM (BEAKER) 9.6 mg/dL 8.4-10.2 (test code = 697) AST (SGOT) (BEAKER) 38 U/L 5-34 H Specimen slightly (test code = 353) hemolyzed ALT (SGPT) (BEAKER) 64 U/L 6-55 H Specimen slightly (test code = 347) hemolyzed EGFR (BEAKER) (test 85 mL/min/1.73 ESTIMA FRANCES GFR IS code = 1092) sq m NOT ACCURATE CREATININE CLEARANCE IN PREDICTING GLOMERULAR FILTRATION RATE . ESTIMATED GFR I S NOT APPLICABLE FOR DIALYSIS PATIEN TS. Machine Hand ID - FRANCESCA [id number] 11:07:00 Test Item Value Reference Range Interpretation Comments LIPASE (BEAKER) (test code = 749) 107 U/L 8-78 H Machine Hand ID - FRANCESCA CCBC with platelet count + automated [id number] 10:46:00 Test Item Value Reference Range Interpretation Comments WBC (test code = 6690-2) 3.9 See_Comment [A utomated message] The system [employer] generated this result transmitted ref erence range: 3.5 - 10 .5 K/L. The refe rence range was not u sed to interpret this result as normal/abnor mal. RBC (test code = 789-8) 3.80 See_Comment L [Au tomated message] The system [employer] generated this result transmitted ref erence range: 3.93 - 5 .22 M/L. The refe rence range was not u sed to interpret this result as normal/abnor mal. MCHC (test code = 786-4) 31.1 See_Comment L [A utomated message] The system [employer] generated this result transmitted ref erence range: 32.2 - 3 5.5 GM/DL. The refe rence range was not u sed to interpret this result as normal/abnor mal. Hematocrit (test code = 38.0 % 34.1-44.9 4544-3) MCV (test code = 787-2) 100.0 fL 79.4-94.8 H MCH (test code = 785-6) 31.1 pg 25.6-32.2 RDW (test code = 788-0) 13.0 % 11.7-14.4 Platelets (test code = 179 See_Comment [Aut omated message] 777-3) The system [employer] generated this result transmitted ref erence range: 150 - 45 0 K/CU MM. The referen ce range was not u sed to interpret this result as normal/abnor mal. MPV (test code = 10.4 fL 9.4-12.3 57416-6) nRBC (test code = 413) 0 See_Comment [Aut omated message] The system [employer] generated this result transmitted ref erence range: 0 - 0 /1 00 WBC. The refere nce range was not u sed to interpret this result as normal/abnor mal. % Neutros (test code = 60 % 429) % Lymphs (test code = 29 % 430) % Monos (test code = 8 % 431) % Eos (test code = 432) 2 % % Baso (test code = 437) 1 % # Neutros (test code = 2.35 See_Comment [Aut omated message] 670) The system [employer] generated this result transmitted ref erence range: 1.56 - 6 .13 K/L. The refe rence range was not u sed to interpret this result as normal/abnor mal. # Lymphs (test code = 1.13 See_Comment L [Auto mated message] 414) The system [employer] generated this result transmitted ref erence range: 1.18 - 3 .74 K/L. The refe rence range was not u sed to interpret this result as normal/abnor mal. # Monos (test code = 0.33 See_Comment [Autom ated message] 415) The system [employer] generated this result transmitted ref erence range: 0.24 - 0 .36 K/L. The refe rence range was not u sed to interpret this result as normal/abnor mal. # Eos (test code = 416) 0.07 See_Comment [Au tomated message] The system [employer] generated this result transmitted ref erence range: 0.04 - 0 .36 K/L. The refe rence range was not u sed to interpret this result as normal/abnor mal. # Baso (test code = 417) 0.02 See_Comment [A utomated message] The system [employer] generated this result transmitted ref erence range: 0.01 - 0 .08 K/L. The refe rence range was not u sed to interpret this result as normal/abnor mal. Immature 1 % 0-1 Granulocytes-Relative (test code = 2801) Lab Interpretation (test Abnormal code = 99351-2) [facility] W/PLT COUNT & AUTO [id number] 10:46:00 Test Item Value Reference Range Interpretation Comments WHITE BLOOD CELL COUNT (BEAKER) 3.9 K/ L 3.5-10.5 (test code = 775) RED BLOOD CELL COUNT (BEAKER) 3.80 M/ L 3.93-5.22 L (test code = 761) HEMOGLOBIN (BEAKER) (test code = 11.8 GM/DL 11.2-15.7 410) HEMATOCRIT (BEAKER) (test code = 38.0 % 34.1-44.9 411) MEAN CORPUSCULAR VOLUME (BEAKER) 100.0 fL 79.4-94.8 H (test code = 753) MEAN CORPUSCULAR HEMOGLOBIN 31.1 pg 25.6-32.2 (BEAKER) (test code = 751) MEAN CORPUSCULAR HEMOGLOBIN CONC 31.1 GM/DL 32.2-35.5 L (BEAKER) (test code = 752) RED CELL DISTRIBUTION WIDTH 13.0 % 11.7-14.4 (BEAKER) (test code = 412) PLATELET COUNT (BEAKER) (test 179 K/CU MM 150-450 code = 756) MEAN PLATELET VOLUME (BEAKER) 10.4 fL 9.4-12.3 (test code = 754) NUCLEATED RED BLOOD CELLS 0 /100 WBC 0-0 (BEAKER) (test code = 413) NEUTROPHILS RELATIVE PERCENT 60 % (BEAKER) (test code = 429) LYMPHOCYTES RELATIVE PERCENT 29 % (BEAKER) (test code = 430) MONOCYTES RELATIVE PERCENT 8 % (BEAKER) (test code = 431) EOSINOPHILS RELATIVE PERCENT 2 % (BEAKER) (test code = 432) BASOPHILS RELATIVE PERCENT 1 % (BEAKER) (test code = 437) NEUTROPHILS ABSOLUTE COUNT 2.35 K/ L 1.56-6.13 (BEAKER) (test code = 670) LYMPHOCYTES ABSOLUTE COUNT 1.13 K/ L 1.18-3.74 L (BEAKER) (test code = 414) MONOCYTES ABSOLUTE COUNT (BEAKER) 0.33 K/ L 0.24-0.36 (test code = 415) EOSINOPHILS ABSOLUTE COUNT 0.07 K/ L 0.04-0.36 (BEAKER) (test code = 416) BASOPHILS ABSOLUTE COUNT (BEAKER) 0.02 K/ L 0.01-0.08 (test code = 417) IMMATURE GRANULOCYTES-RELATIVE 1 % 0-1 PERCENT (BEAKER) (test code = 2801) POC-Glucose [id number] 22:57:00 Test Item Value Reference Range Interpretation Comments POC-Glucose Meter (test 155 mg/dL 70-110 H : TE STED AT [facility] code = 1538) [address] [place], [address]: Machine Hand/Techni carlos alberto ID = [id number] for KEIRANAVARROY Lab Interpretation (test Abnormal code = 87536-6) [facility] [id number] 22:57:00 Test Item Value Reference Range Interpretation Comments POC-GLUCOSE METER 155 mg/dL 70-110 H : TESTED A T [facility] [address] (BEAKER) (test code = [place] [facility], 1538) [address]: Machine Hand/Techni carlos alberto ID = [id number] for WAYNE EASLEY POCT-GLUCOSE [id number] 18:54:00 Test Item Value Reference Range Interpretation Comments POC-GLUCOSE METER 107 mg/dL 70-110 : TESTED R[place] [facility] 67[address] (WILBERTO) (test code = [place] [facility], 1538) [address]: Machine Hand/Techni carlos alberto ID = [id number] for NICOLASA MORAES, [id number] 17:50:22Reason for exam:->[facility] : 1955 Sex: FFluoroscopic unit utilized for a procedure performed in the OR. No interpretation was requested. Refer to the operative report for findings. Refer to PACS for patient radiation dose information.SARS-CoV2/RT-PCR (Asymptomatic ONLY)2020-02-29 10:06:00 Test Item Value Reference Range Interpretation Comments SARS-COV2/RT-PCR Negative Not Detected, (test code = Negative, See 69639-6) external report for linked test SARS-COV-2 [facility] [place] PERFORMING LAB (test code = 96013-1) SUDHIR (test code = Negative result for this SUDHIR) test determines that SARS-CoV-2 RNA was not present in the specimen above the Limit of Detection (LOD). However, Negative results do not preclude SARS-CoV-2 infection and should not be used as the sole basis for treatment or patient management decisions. Negative results must be combined with clinical observations, patient history, and epidemiological information. A false negative result may occur if a specimen is improperly collected, transported or handled. A false negative result should be considered if patient's recent exposures or clinical presentation indicate that COVID-19 (SARS-CoV-2) is likely and diagnostic tests for other causes of illness are negative. Re-testing should be considered in cases of suspected false negatives. The limit of detection for this assay is 800 copies/mL. This SARS CoV-2 test is a real-time RT-PCR test intended for the qualitative detection of nucleic acid from SARS-CoV-2 in a nasopharyngeal swab specimen collected from individuals suspected of COVID-19 by their healthcare provider. This test has not been Food and Drug Administration (FDA) cleared or approved. This is a modified version of an approved Emergency Use Authorization (EUA) and is in the process of review by the FDA. Once authorized by the FDA, the issued EUA will be effective until the declaration that circumstances exist justifying the authorization of the emergency use of in vitro diagnostic tests for detection and/or diagnosis of COVID-19 is terminated under Section 564(b)(2) of the Act or the EUA is revoked under Section 564(g) of the Act. Fact Sheet for Healthcare Providers:https://www.LiveSafe/sites/default/f henok/product/documents/F act_Sheet_HC_Providers_L kls_JKSW-XyF-4.pdf Fact Sheet for Healthcare Patients:https://www.Huckletree.Voölks/sites/default/fi les/product/documents/Fa ct_Sheet_Patients_Lyra_S ARS-CoV-2.pdf Performing Laboratory:[facility]ARS-COV2/RT-PCR ([facility])2020-02-29 10:06:00 Test Item Value Reference Range Interpretation Comments SARS-COV2/RT-PCR (test Negative Not Detected, Negative, code = 1284805) See external report for linked test SARS-COV-2 PERFORMING LAB [facility] [place] (test code = 2569747) Negative result for this test determines that SARS-CoV-2 RNA was not present in the specimen above the Limit of Detection (LOD). However, Negative results do not preclude SARS-CoV-2 infection and should not be used as the sole basis for treatment or patient management decisions. Negative results mustbe combined with clinical observations, patient history, and epidemiological information. A false negative result may occur if a specimen is improperly collected, transported or handled. A false negative result should be considered if patient's recent exposures or clinical presentation indicate that COVID-19 (SARS-CoV-2) is likely and diagnostic tests for other causes of illness are negative. Re-testing should be considered in cases of suspected false negatives.The limit of detection for this assay is 800 copies/mL.This SARS CoV-2 test is a real-time RT-PCR test intended for the qualitative detection of nucleic acid from SARS-CoV-2 in a nasopharyngeal swab specimen collected from individuals susp ected of COVID-19 by their healthcare provider.This test has not been Food and Drug Administration (FDA) cleared or approved. This is a modified version of an approved Emergency Use Authorization (EUA) and is in the process of review by the FDA. Once authorized by the FDA, the issued EUA will be effective until the declaration that circumstances exist justifying the authorization of the emergency use of in vitro diagnostic tests for detection and/or diagnosis of COVID-19 is terminated under Section 564(b)(2) of the Act or the EUA is revoked under Section 564(g) of the Act.Fact Sheet for Healthcare Providers:https://www.C[employer].Voölks/sites/default/files/product/documents/Fact_Shee h_OP_Pnjqagzxi_Xuad_IQLJ-HqB-4.pdfFact Sheet for Healthcare Patients:https://www.[employer].Voölks/sites/default/files/product/ documents/Fhgh_Tpchr_Iktipcjl_Vxaj_TWEG-OjE-9.pdfPerforming Laboratory:[facility], [place] [address]XJSWW, manual 2020-02-29 06:24:00 Test Item Value Reference Range Interpretation Comments ABO Grouping (test code = 2588) A Rh Factor (test code = 2589) [facility] [id number] 04:36:00 Test Item Value Reference Range Interpretation Comments Sodium (test code = 140 meq/L 742-258 8859-2) Potassium (test code 3.4 meq/L 3.5-5.1 L Specime n = 2823-3) slightly hemolyzed Chloride (test code = 105 meq/L 98-107 5-0) CO2 (test code = 29 meq/L 22-29 2027-9) BUN (test code = 14 mg/dL 7-21 3094-0) Creatinine (test code 0.69 mg/dL 0.57-1.25 Specim en = 2160-0) slightly hemolyzed Glucose (test code = 86 mg/dL 70-105 2345-7) Calcium (test code = 9.8 mg/dL 8.4-10.2 87243-9) EGFR (test code = 85 mL/min/1.73 [place] [address]-4) NOT ACCURATE CREATININE CLEARANCE IN PREDICTING GLOMERULAR FILTRATION RATE . ESTIMATED GFR I S NOT APPLICABLE FOR DIALYSIS PATIENTS. SUDHIR (test code = SUDHIR) Machine Hand ID - CHIP Claudioecimen moderately icteric Lab Interpretation Abnormal (test code = 56976-7) [facility] CenterBASI METABOLIC [id number] 04:36:00 Test Item Value Reference Range Interpretation Comments SODIUM (BEAKER) 140 meq/L 136-145 (test code = 381) POTASSIUM (BEAKER) 3.4 meq/L 3.5-5.1 L Specimen slightly (test code = 379) hemolyzed CHLORIDE (BEAKER) 105 meq/L 98-107 (test code = 382) CO2 (BEAKER) (test 29 meq/L -29 code = 355) BLOOD UREA NITROGEN 14 mg/dL 7-21 (BEAKER) (test code = 354) CREATININE (BEAKER) 0.69 mg/dL 0.57-1.25 Specimen slightly (test code = 358) hemolyzed GLUCOSE RANDOM 86 mg/dL 70-105 (BEAKER) (test code = 652) CALCIUM (BEAKER) 9.8 mg/dL 8.4-10.2 (test code = 697) EGFR (BEAKER) (test 85 mL/min/1.73 ESTIMA FRANCES GFR IS code = 1092) sq m NOT ACCURATE CREATININE CLEARANCE IN PREDICTING GLOMERULAR FILTRATION RATE . ESTIMATED GFR I S NOT APPLICABLE FOR DIALYSIS PATIEN TS. Machine Hand ID - CHIP MSpecimen moderately ictericCBC W/PLT COUNT & AUTO [id number] 03:47:00 Test Item Value Reference Range Interpretation Comments WHITE BLOOD CELL COUNT (BEAKER) 3.5 K/ L 3.5-10.5 (test code = 775) RED BLOOD CELL COUNT (BEAKER) 3.74 M/ L 3.93-5.22 L (test code = 761) HEMOGLOBIN (BEAKER) (test code = 11.6 GM/DL 11.2-15.7 410) HEMATOCRIT (BEAKER) (test code = 37.6 % 34.1-44.9 411) MEAN CORPUSCULAR VOLUME (BEAKER) 100.5 fL 79.4-94.8 H (test code = 753) MEAN CORPUSCULAR HEMOGLOBIN 31.0 pg 25.6-32.2 (BEAKER) (test code = 751) MEAN CORPUSCULAR HEMOGLOBIN CONC 30.9 GM/DL 32.2-35.5 L (BEAKER) (test code = 752) RED CELL DISTRIBUTION WIDTH 12.5 % 11.7-14.4 (BEAKER) (test code = 412) PLATELET COUNT (BEAKER) (test 146 K/CU MM 150-450 L code = 756) MEAN PLATELET VOLUME (BEAKER) 10.1 fL 9.4-12.3 (test code = 754) NUCLEATED RED BLOOD CELLS 0 /100 WBC 0-0 (BEAKER) (test code = 413) NEUTROPHILS RELATIVE PERCENT 78 % (BEAKER) (test code = 429) LYMPHOCYTES RELATIVE PERCENT 15 % (BEAKER) (test code = 430) MONOCYTES RELATIVE PERCENT 5 % (BEAKER) (test code = 431) EOSINOPHILS RELATIVE PERCENT 2 % (BEAKER) (test code = 432) BASOPHILS RELATIVE PERCENT 0 % (BEAKER) (test code = 437) NEUTROPHILS ABSOLUTE COUNT 2.72 K/ L 1.56-6.13 (BEAKER) (test code = 670) LYMPHOCYTES ABSOLUTE COUNT 0.51 K/ L 1.18-3.74 L (BEAKER) (test code = 414) MONOCYTES ABSOLUTE COUNT (BEAKER) 0.16 K/ L 0.24-0.36 L (test code = 415) EOSINOPHILS ABSOLUTE COUNT 0.06 K/ L 0.04-0.36 (BEAKER) (test code = 416) BASOPHILS ABSOLUTE COUNT (BEAKER) 0.01 K/ L 0.01-0.08 (test code = 417) IMMATURE GRANULOCYTES-RELATIVE 1 % 0-1 PERCENT (BEAKER) (test code = 2801) Type and screen, [id number] 23:58:00 Test Item Value Reference Range Interpretation Comments ABO/RH AUTOMATED (BEAKER) (test A POSITIVE code = 2260) Ab Scrn (test code = 890-4) NEGATIVE [facility] CenterHepatic function [id number] 23:50:00 Test Item Value Reference Range Interpretation Comments Protein, Total (test 7.1 See_Comment [Autom ated code = 2885-2) message] The system which generated this result transmitted reference range : 6.0 - 8.3 gm/dL . The reference range was not used to interpr et this result as normal/abnormal . Albumin (test code = 3.5 g/dL 3.5-5.0 75938-5) Total Bilirubin (test 6.2 mg/dL 0.2-1.2 H code = 1974-2) Bilirubin, Direct 4.7 mg/dL 0.1-0.5 H (test code = 1968-7) Alkaline Phosphatase 172 U/L 40-150 H (test code = 6768-6) AST (test code = 41 U/L 5-34 H 1920-8) ALT (test code = 85 U/L 6-55 H 1742-6) SUDHIR (test code = SUDHIR) Machine Hand ID - AUTUMNVAMSI LSpecimen moderately icteric Lab Interpretation Abnormal (test code = 43759-3) [facility] CenterMagnesium2021-01-19 23:50:00 Test Item Value Reference Range Interpretation Comments Magnesium (test code = 1.7 mg/dL 1.6-2.6 01137-4) SUDHIR (test code = SUDHIR) Machine Hand ID - LUIS L Lab Interpretation (test Normal code = 45190-3) [facility] CenterMAGNESIUM2021-01-19 23:50:00 Test Item Value Reference Range Interpretation Comments MAGNESIUM (BEAKER) (test code = 1.7 mg/dL 1.6-2.6 627) Machine Hand ID - LUIS LBASIC METABOLIC [id number] 23:50:00 Test Item Value Reference Range Interpretation Comments SODIUM (BEAKER) 141 meq/L 136-145 (test code = 381) POTASSIUM (BEAKER) 3.7 meq/L 3.5-5.1 (test code = 379) CHLORIDE (BEAKER) 104 meq/L 98-107 (test code = 382) CO2 (BEAKER) (test 25 meq/L 22-29 code = 355) BLOOD UREA NITROGEN 15 mg/dL 7-21 (BEAKER) (test code = 354) CREATININE (BEAKER) 0.68 mg/dL 0.57-1.25 (test code = 358) GLUCOSE RANDOM 84 mg/dL 70-105 (BEAKER) (test code = 652) CALCIUM (BEAKER) 10.3 mg/dL 8.4-10.2 H (test code = 697) EGFR (BEAKER) (test 87 mL/min/1.73 ESTIMA FRANCES GFR IS code = 1092) sq m NOT ACCURATE CREATININE CLEARANCE IN PREDICTING GLOMERULAR FILTRATION RATE . ESTIMATED GFR I S NOT APPLICABLE FOR DIALYSIS PATIEN TS. Machine Hand ID - LUIS MENCHACApecimen moderately ictericHEPATIC FUNCTION [id number] 23:50:00 Test Item Value Reference Range Interpretation Comments TOTAL PROTEIN (BEAKER) (test code = 7.1 gm/dL 6.0-8.3 770) ALBUMIN (BEAKER) (test code = 1145) 3.5 g/dL 3.5-5.0 BILIRUBIN TOTAL (BEAKER) (test code 6.2 mg/dL 0.2-1.2 H = 377) BILIRUBIN DIRECT (BEAKER) (test 4.7 mg/dL 0.1-0.5 H code = 706) ALKALINE PHOSPHATASE (BEAKER) (test 172 U/L 40-150 H code = 346) AST (SGOT) (BEAKER) (test code = 41 U/L 5-34 H 353) ALT (SGPT) (BEAKER) (test code = 85 U/L 6-55 H 347) Machine Hand ID - LUIS Kerrn moderately ictericProthrombin time/[id number] 23:23:00 Test Item Value Reference Interpretation Comments Range Protime (test code = 13.5 See_Comment [Autom ated 5902-2) message] The system which generated this result transmitted reference range : 11.9 - 14.2 seconds. The reference range was not used to interpret this result as normal/abnormal . INR (test code = 1.06 See_Comment [Automated 4851-6) message] The system which generated this result transmitted reference range : <=5.90. The reference range was not used to interpret this result as normal/abnormal . SUDHIR (test code = Effective 07/07/2018: SUDHIR) PT Reference Range ChangeNew: 11.9-14.2 Previous: 11.7-14.7 RECOMMENDED COUMADIN/WARFARIN INR THERAPY RANGESSTANDARD DOSE: 2.0-3.0 Includes: PROPHYLAXIS for venous thrombosis, systemic embolization; TREATMENT for venous thrombosis and/or pulmonary embolus.HIGH RISK: Target INR is 2.5-3.5 for patients wiht mechanical heart valves. Lab Interpretation Normal (test code = 64352-4) [facility] CenterPROTHROMBIN TIME/[id number] 23:23:00 Test Item Value Reference Range Interpretation Comments PROTIME (BEAKER) (test code = 13.5 seconds 11.9-14.2 759) INR (BEAKER) (test code = 370) 1.06 <=5.90 Effective 07/07/2018: PT Reference Range ChangeNew: 11.9-14.2 Previous: 11.7- 14.7RECOMMENDED COUMADIN/WARFARIN INR THERAPY RANGESSTANDARD DOSE: 2.0-3.0 Includes: PROPHYLAXIS for venous thrombosis, systemic embolization; TREATMENT for venous thrombosis and/or pulmonary embolus.HIGH RISK: Target INR is2.5-3.5 for patients wiht mechanical heart valves.CBC W/PLT COUNT & AUTO [id number] 23:12:00 Test Item Value Reference Range Interpretation Comments WHITE BLOOD CELL COUNT (BEAKER) 4.8 K/ L 3.5-10.5 (test code = 775) RED BLOOD CELL COUNT (BEAKER) 3.72 M/ L 3.93-5.22 L (test code = 761) HEMOGLOBIN (BEAKER) (test code = 11.8 GM/DL 11.2-15.7 410) HEMATOCRIT (BEAKER) (test code = 37.2 % 34.1-44.9 411) MEAN CORPUSCULAR VOLUME (BEAKER) 100.0 fL 79.4-94.8 H (test code = 753) MEAN CORPUSCULAR HEMOGLOBIN 31.7 pg 25.6-32.2 (BEAKER) (test code = 751) MEAN CORPUSCULAR HEMOGLOBIN CONC 31.7 GM/DL 32.2-35.5 L (BEAKER) (test code = 752) RED CELL DISTRIBUTION WIDTH 12.5 % 11.7-14.4 (BEAKER) (test code = 412) PLATELET COUNT (BEAKER) (test 147 K/CU MM 150-450 L code = 756) MEAN PLATELET VOLUME (BEAKER) 10.1 fL 9.4-12.3 (test code = 754) NUCLEATED RED BLOOD CELLS 0 /100 WBC 0-0 (BEAKER) (test code = 413) NEUTROPHILS RELATIVE PERCENT 76 % (BEAKER) (test code = 429) LYMPHOCYTES RELATIVE PERCENT 13 % (BEAKER) (test code = 430) MONOCYTES RELATIVE PERCENT 10 % (BEAKER) (test code = 431) EOSINOPHILS RELATIVE PERCENT 1 % (BEAKER) (test code = 432) BASOPHILS RELATIVE PERCENT 0 % (BEAKER) (test code = 437) NEUTROPHILS ABSOLUTE COUNT 3.66 K/ L 1.56-6.13 (BEAKER) (test code = 670) LYMPHOCYTES ABSOLUTE COUNT 0.64 K/ L 1.18-3.74 L (BEAKER) (test code = 414) MONOCYTES ABSOLUTE COUNT (BEAKER) 0.47 K/ L 0.24-0.36 H (test code = 415) EOSINOPHILS ABSOLUTE COUNT 0.05 K/ L 0.04-0.36 (BEAKER) (test code = 416) BASOPHILS ABSOLUTE COUNT (BEAKER) 0.01 K/ L 0.01-0.08 (test code = 417) IMMATURE GRANULOCYTES-RELATIVE 0 % 0-1 PERCENT (BEAKER) (test code = 2801) POCT-GLUCOSE [id number] 21:31:00 Test Item Value Reference Range Interpretation Comments POC-GLUCOSE METER 84 mg/dL 70-110 : TESTED A T [facility] 6720 (BEAKER) (test code = [place], 1538) [address]: Machine Hand/Techni carlos alberto ID = [id number] for JESSENIA HOLMAN Lipid [id number] 04:39:00 Test Item Value Reference Range Interpretation Comments Cholesterol, total 217 mg/dL <200 H (test code = 2093-3) HDL cholesterol 65 mg/dL See_Comment [Automated (test code = 2085-9) message ] The system which generated this result transmitted reference range : > OR = 50. The reference range was not used to interpret this result as normal/abnormal . Triglycerides (test 88 mg/dL <150 code = 2571-8) LDL cholesterol mg/dL (calc) H Reference ra nge: calculated (test <100 Desira ble code = 47473-4) range <100 m g/dL for primary prevention; <7 0 mg/dL for patients with C HD or diabetic patients with > or = 2 CHD risk factors. LDL-C is now calculated using the Sean-Vito calculation, which is a validated novel method providin g better accuracy than the Friedewald equation in the estimation of LDL-C. Sean S S et al. SRIDEVI. 2013;310(19): 6486-2928 (http://educati on .Vigour.io .com/faq/CNT595 ) Cholesterol/HDL See_Comment [Automated ratio (test code = message] The 9830-1) system which generated this result transmitted reference range : <5.0 (calc). Th e reference range was not used to interpret this result as normal/abnormal . Non-HDL cholesterol See_Comment H For john ents with (test code = diabetes plus 1 64606-0) major ASCVD ris k factor, treatin g to a non-HDL-C goal of <100 mg/dL (LDL-C of <70 mg/dL) is considered a therapeutic option. [Automated message] The system which generated this result transmitted reference range : <130 mg/dL (calc). The reference range was not used to interpret this result as normal/abnormal . SUDHIR (test code = FASTING:NOFASTING: SUDHIR) NO RAC (test code = Performing RAC) Organization Information: Site ID: [id number] Name: [facility] Address: [address] [place] [id number] Director: Kb Balderas Lab Interpretation Abnormal (test code = 82504-0) [facility]2020-11-12 17:52:Robert Brody CRNA 12/22/2019 11:52 AMAirway Date/Time: 12/22/2019 11:36 AMPerformed by: Robert Beltran CRNAAuthorized by: Duane Arthur Location: ORUrgency: ElectiveDifficult Airway: No Anesthesiologist: Duane ArthurResident/SEBD TEACHER/AA: Robert Beltran CRNAPerformed by: resident/SEBD TEACHER/AAPreoxygenated with 100% O2: Yes C-spine Precautions Maintained [...] RSI: No Number of Attempts at Approach: 1MethSt. Vincent EvansvilleVayurmdkLOCZ-WpF-8 (COVID-19) RNA [Presence] in Respiratory specimen by ROSENDO with probe [id number] 22:04:12 Test Item Value Reference Range Interpretation Comments SARS-CoV-2 (COVID-19) RNA Not detected Not-Detected [Presence] in Respiratory specimen by ROSENDO with probe detection (test code = 48301-6) ECG 12 [id number] 23:48:00 Test Item Value Reference Range Interpretation Comments Ventricular rate (test code = 253) Atrial rate (test code = 255) CA interval (test code = 266) QRSD interval (test code = 260) QT interval (test code = 264) QTC interval (test code = 265) P axis 1 (test code = 267) QRS axis 1 (test code = 268) T wave axis (test code = 270) EKG impression (test Normal sinus code = 273) rhythm-Normal ECG-In automated comparison with ECG of 30-NOV-2019 13:30,-No significant change was found- [facility] lab [id number] 16:25:39Cardiology Procedure NoteHouyohana [facility] DATE OF PROCEDURE: 12/02/2019T ASSISTANT DIRECTOR OF ADMISSIONS RM 1 INDICATION: Chest pain, unspecified [R07.9] [...] The attending physician provided personal supervision as traveling plant operator and/ or first assistant manager throughout the procedure. Hemodynamics Systolic (mmHg) Diastolic [...] before bifurcating into the right posteriolateral artery (BARBARA) and posterior descending artery (PDA) [...] guidelines Ambrocio Dennis MD, MAStructural & Interventional CardiologistBaptist Medical Center [facility].Date: 12/02/2019Time: 10:57 AMMethodist [id number]-1 (COVID-19) RNA [Presence] in Respiratory specimen by ROSENDO with probe detection 2019-12-01 18:31:57 Test Item Value Reference Range Interpretation Comments SARS-CoV-2 (COVID-19) RNA Not detected Not-Detected [Presence] in Respiratory specimen by ROSENDO with probe detection (test code = 29841-0) CT Abdomen W [id number] 16:02:56Addendum by Parvez Pratt MD on 12/07/2019 2:51 PM ADDENDUM #1 Thereare 2 fat- containing anterior upper abdominal wall hernias. EXAMINATION: CT ABDOMEN W CONTRAST CLINICAL HISTORY: K46.0 Unspecified abdominal hernia with obstruction without gangrene, K46.0 TECHNIQUE: Axial images of the abdomen were obtained following intravenous administration of iodinated contrast. Sagittal and coronal computerized reformatted images were also obtained. CT imaging was performed w ith iterative reconstruction technique and/or automated exposure control to reduce radiation dose. COMPARISON: None. FINDINGS:LUNG BASES:The lung bases are free of acute disease. ABDOMEN:Liver: The liver is normal. No focal mass.Gallbladder/Biliary: The gallbladder is surgically absent. Small pneumobi mathew, suspect reflux.Adrenal Glands: The adrenal glands are unremarkable.Spleen: The spleen is not enlarged.Pancreas: The pancreas is unremarkable.Kidneys: 5 mm nonobstructing stone in the lower pole right kidney.Bowel: No bowel obstruction or inflammatory changes. No CT evidence of appendicitis.Vascular: The abdominal aorta is nonaneurysmal.Nodes: No enlarged retroperitoneal or mesenteric lymphadenopathy.Ascites/fluid collections: No ascites or fluid collections.Other: None. MUSCULOSKELETAL: No suspicious osseous lesions. Mild degenerative changes in the spine. IMPRESSION: No acute abnormality. TW- [id number] Interface, Radiology Results Incoming - 12/01/2019 11:06 AM CDT EXAMINATION: CT ABDOMEN W CONTRASTCLINICAL HISTORY: K46.0 Unspecified abdominal hernia with obstruction without gangrene, K46.0TECHNIQUE: Axial images of the abdomen were obtained following intravenous administration of iodinated contrast. Sagittal and coronalcomputerized reformatted images were also obtained.CT imaging was [...] lower pole right kidney.Bowel: No bowel obstruction or inflammatory changes. No CT evidence of appendicitis.Vascular: The abdominal aorta is nonaneurysmal.Nodes: No enlarged retroperitoneal or mesenteric lymphadenopathy.Ascites/fluid collections: No ascites or fluid collections.Other: None.MUSCULOSKELETAL: No suspicious osseous lesions. Milddegenerative changes in the spine.IMPRESSION: No acute abnormality.[id number]
[2020-10-20] MEDS ORDERED: METHYLPREDNISOLONE 125 MG INJ ONE (17:57)
[2020-10-20 18:21] LABS: Absolute Lymphocytes (CBC) 1.4 K/uL (0.7-4.9); Basophils % 0.1 % (0-1.3); Lymphocytes % 9.7 % (15.3-44.8); MPV 8.2 fL (7.6-11.3); RBC Red Blood Cell Count 3.99 M/uL (3.86-4.86)
[2020-10-20 18:24] LABS: Protime INR 1.23
--- NOTE | 2020-10-20 18:25 | RAD REPORT ---
EXAM DESCRIPTION: RAD - Chest Single View - 10/20/2020 6:18 pm CLINICAL HISTORY: Cough;Dyspnea COMPARISON: Chest Single View dated 02/27/2020; Chest Single View dated 03/08/2018; Chest Single View dated 05/04/2016; Abdomen 1 View (KUB) dated 09/24/2015 FINDINGS: Lines: None. Lungs: No evidence of edema or pneumonia. Pleural: No significant pleural effusions or pneumothorax. Cardiac: Cardiomegaly Bones: No acute fractures. Other: ACDF in the cervical spine. IMPRESSION: No acute cardiopulmonary disease.
[2020-10-20 18:29] LABS: ALT/SGPT 26 U/L (12-78); AST/SGOT 17 U/L (15-37); Albumin 2.8 g/dL (3.4-5.0); Alkaline Phosphatase 114 U/L (45-117); BUN Blood Urea Nitrogen 12 mg/dL (7-18); Bicarbonate 26 mmol/L (21-32); Bilirubin Direct 0.9 mg/dL (0-0.2); Bilirubin Total 1.7 mg/dL (0.2-1.0); Ferritin 275.1 ng/mL (8-388); Glucose Level 108 mg/dL (74-106); Potassium 3.5 mmol/L (3.5-5.1); Protein, Total 8.6 g/dL (6.4-8.2); Sodium Level 136 mmol/L (136-145); Troponin (Emerg Dept Use Only) < 0.02 ng/mL (0.0-0.045)
[2020-10-20 18:34] LABS: SARS-COV-2 RT PCR NEGATIVE (NEGATIVE)
--- NOTE | 2020-10-20 18:53 | EDPHYS ---
Physician Documentation [facility] Name: Gosia Thornton Age: 65 yrs Sex: Female : 1955 Arrival Date: 10/20/2020 Time: 17:05 Bed 6 Private MD: Jessica Villatoro ED Physician Gray Jovel HPI: 10/20 17:54 This 65 yrs old Female presents to ER via Ambulatory with complaints of rn Breathing Difficulty, Productive Cough, chills, Fever. 17:54 The patient has shortness of breath at rest, with light activity. Onset: The rn symptoms/episode began/occurred 1 week(s) ago. Duration: The symptoms are continuous. The patient's shortness of breath is aggravated by exertion, light activity, is alleviated by rest. Associated signs and symptoms: Pertinent positives: productive cough, fever, Pertinent negatives: hemoptysis, loss of consciousness. Severity of symptoms: At their worst the symptoms were moderate in the emergency department the symptoms are unchanged. The patient has not experienced similar symptoms in the past. The patient has been recently seen by a physician:. Patient reports 1 to 2 weeks of productive cough, chills, fever, worsening shortness of breath. States told by PCP had bronchitis 2 weeks ago, prescribed breathing treatments, states is worsening. No chronic lung problems. Non-smoker. No chest pain. Reports Covid vaccination in April and May of this year.. Historical: - Allergies: 17:27 Codeine; hb - PMHx: 17:27 Anxiety; chronic hip pain; Depression; Hepatitis C; Kidney stones; RLS; hb - Immunization history:: Adult Immunizations up to date. - Social history:: Smoking status: Patient reports the use of cigarette tobacco products. - Family history:: not pertinent. - Hospitalizations: : No recent hospitalization is reported. ROS: 17:54 Constitutional: Positive for fever and chills Eyes: Negative for injury, pain, redness, rn and discharge, ENT: Positive for nasal congestion and runny nose Neck: Negative for injury, pain, and swelling, Cardiovascular: Negative for chest pain, palpitations, and edema, Respiratory: Positive for cough and shortness of breath Abdomen/GI: Negative for abdominal pain, nausea, vomiting, diarrhea, and constipation, Back: Negative for injury and pain, : Negative for injury, bleeding, discharge, and swelling, MS/Extremity: Negative for injury and deformity, Skin: Negative for injury, rash, and discoloration, Neuro: Negative for headache, weakness, numbness, tingling, and seizure. 17:54 All other systems are negative. Exam: 17:54 Constitutional: This is a well developed, well nourished patient who is awake, alert, rn moderate tachypnea Head/Face: Normocephalic, atraumatic. Eyes: Periorbital areas with no swelling, redness, or edema. ENT: Moist his membranes. No stridor Cardiovascular: Tachycardic, regular. No pulse deficits. Respiratory: Moderate tachypnea, no retractions. + bilateral wheezing and prolonged expiratory phase Abdomen/GI: Soft, non-tender Skin: Warm, dry MS/ Extremity: Pulses equal, no cyanosis. Neuro: Awake and alert, GCS 15 19:00 ECG was reviewed by the Attending Physician. rn Vital Signs: 17:21 BP 166 / 99; Pulse 120; Resp 28; Temp 98.9; Pulse Ox 88% on R/A; Weight 86.18 kg; hb Height 5 ft. 3 in. (160.02 cm); Pain 10/10; 17:49 BP 166 / 99; Pulse 110; Resp 18; Temp 98.3; Pulse Ox 98% ; Pain 10/10; ch5 17:21 Body Mass Index 33.66 (86.18 kg, 160.02 cm) hb MDM: 17:24 Patient medically screened. rn 18:49 Differential diagnosis: Bronchitis CHF exacerbation, Chronic Obstructive Pulmonary rn Disease Myocardial Infarction pneumonia, Pneumothorax pulmonary edema, Pulmonary Embolism reactive airway disease. Antibiotic administration: Not indicated. The patient's pulmonary embolism risk score was calculated as follows: the patients heart rate is greater than 100 beats per minute (1.5 Pts) Total Score: 0-2 points. This patient was found to be at low risk for a pulmonary embolism by using the Well's assessment criteria. Data reviewed: vital signs, nurses notes, lab test result(s), EKG, radiologic studies, plain films, and as a result, I will admit patient. Data interpreted: monitor car operator: rate is 110 beats/min, rhythm is sinus tachycardia, with no ectopy, Interpretation: tachycardia, Pulse oximetry: on room air is 88 %. Interpretation: hypoxia. Plan: O2 by NC applied. Test interpretation: by ED physician or midlevel provider: ECG, plain radiologic studies, Chest x-ray negative for acute pneumonia or pneumothorax. Counseling: I had a detailed discussion with the patient and/or guardian regarding: the historical points, exam findings, and any diagnostic results supporting the discharge/admit diagnosis, lab results, radiology results, the need for further work-up and treatment in the hospital. Response to treatment: the patient's symptoms have mildly improved after treatment, and as a result, I will admit patient. Admission orders: after a detailed discussion of the patient's condition and case, the admit orders are written by me. ED course: Patient Covid negative, chest x-ray without acute findings. Most likely reactive airway disease secondary to long-term secondhand smoke exposure given tachypnea and wheezing. Given steroids and will give breathing treatments to check for response. Also getting CT PE protocol given grossly normal chest x-ray with hypoxemia. Will admit to hospitalist service for further care.. 10/20 17:30 Order name: BMP 10/20 17:30 Order name: Blood Culture Adult (2) 10/20 17:30 Order name: C-Reactive Protein 10/20 17:30 Order name: CBC with Diff 10/20 17:30 Order name: D-Dimer 10/20 17:30 Order name: Ferritin; Complete Time: 18:30 10/20 17:30 Order name: LFT's; Complete Time: 18:30 10/20 17:30 Order name: Lactate; Complete Time: 18:29 10/20 17:30 Order name: PT-INR 10/20 17:30 Order name: Procalcitonin 10/20 17:30 Order name: Ptt, Activated 10/20 17:30 Order name: Troponin (emerg Dept Use Only); Complete Time: 18:30 10/20 17:31 Order name: Basic Metabolic Panel; Complete Time: 18:30 [facility] 10/20 17:31 Order name: Blood Culture [facility] 10/20 17:30 Order name: CXR XRAY; Complete Time: 18:29 10/20 17:30 Order name: EKG; Complete Time: 17:31 10/20 17:30 Order name: Cardiac monitoring; Complete Time: 17:36 10/20 17:30 Order name: Droplet/Contact Precautions; Complete Time: 17:36 rn 10/20 17:30 Order name: EKG - Nurse/Tech rn 10/20 17:30 Order name: IV Start; Complete Time: 17:36 rn 10/20 17:30 Order name: Labs collected and sent; Complete Time: 17:36 rn 10/20 17:31 Order name: C-Reactive Protein; Complete Time: 18:30 EDMS 10/20 17:36 Order name: COVID-19 : Document "Date of Symptom Onset" if Symptomatic. rn 10/20 17:36 Order name: Flu rn 10/20 18:34 Order name: COVID-19/FLU A+B; Complete Time: 18:35 EDMS 10/20 18:35 Order name: CT Chest For PE Angio rn 10/20 17:30 Order name: O2 Per Protocol; Complete Time: 17:36 rn 10/20 17:30 Order name: O2 Sat Monitoring; Complete Time: 17:36 rn EC:00 Rate is 106 beats/min. Rhythm is regular. QRS [place] is Normal. IA interval is normal. rn QRS interval is normal. QT interval is normal. No Q waves. T waves are Normal. No ST changes noted. Clinical impression: Sinus tachycardia and PACs. Interpreted by me. Reviewed by me. Administered Medications: 17:35 Drug: SOLU-Medrol (methylPrednisoLONE) 125 mg Route: IVP; Site: right antecubital; hb Disposition Summary: 10/20/20 18:52 Hospitalization Ordered Hospitalization Status: Inpatient Admission rn Provider: Monster Robertson rn Location: Telemetry/MedSurg (Inpatient) rn Condition: Stable rn Problem: new rn Symptoms: have improved rn Bed/Room Type: Standard rn Room Assignment: 228(10/20/20 21:44) mw Diagnosis - Hypoxemia rn - Dyspnea, unspecified rn - Wheezing trial attorney Instructions: - Discharge Summary Sheet ch5 Forms: - Medication Reconciliation Form rn - SBAR form ch5 Signatures: Dispatcher [employer] Mirna Cespedes RN RN mw Nieto, Roman, MD MD rn Baxter, Heather, RN RN Corrections: (The following items were deleted from the chart) 17:48 17:36 Influenza Screen (A ordered. EDND EDMS 17:49 17:36 CORONAVIRUS ordered. EDND EDMS 18:47 17:54 Constitutional: This is a well developed, well nourished patient who is awake, rn alert, moderate tachypnea Head/Face: Normocephalic, atraumatic. Eyes: Periorbital areas with no swelling, redness, or edema. ENT: Moist his membranes. No stridor Cardiovascular: Tachycardic, regular. No pulse deficits. Respiratory: Moderate tachypnea, no retractions. Abdomen/GI: Soft, non-tender Skin: Warm, dry MS/ Extremity: Pulses equal, no cyanosis. Neuro: Awake and alert, GCS 15 rn 21:44 18:52 rn mw
--- NOTE | 2020-10-20 18:53 | ER ---
Nurse's Notes [facility] Name: Gosia Thornton Age: 65 yrs Sex: Female : 1955 Arrival Date: 10/20/2020 Time: 17:05 Bed 6 Private MD: Jessica Villatoro Diagnosis: Hypoxemia;Dyspnea, unspecified;Wheezing Presentation: 10/20 17:21 Chief complaint: Patient states: Worsening cough and SOB x 10 days. Coronavirus screen: hb Client presents with at least one sign or symptom that may indicate coronavirus-19. Standard/surgical mask placed on the client. Provider contacted for isolation considerations. Ebola Screen: No symptoms or risks identified at this time. Initial Sepsis Screen: Does the patient meet any 2 criteria? No. Patient's initial sepsis screen is negative. Does the patient have a suspected source of infection? No. Patient's initial sepsis screen is negative. Risk Assessment: Do you want to hurt yourself or someone else? Patient reports no desire to harm self or others. Onset of symptoms was October 10, 2020. 17:21 Method Of Arrival: Ambulatory 17:21 Acuity: CONCEPCION 3 hb Historical: - Allergies: 17:27 Codeine; hb - PMHx: 17:27 Anxiety; chronic hip pain; Depression; Hepatitis C; Kidney stones; RLS; hb - Immunization history:: Adult Immunizations up to date. - Social history:: Smoking status: Patient reports the use of cigarette tobacco products. - Family history:: not pertinent. - Hospitalizations: : No recent hospitalization is reported. Screenin:36 Abuse screen: Denies threats or abuse. Denies injuries from another. Nutritional hb screening: No deficits noted. Tuberculosis screening: No symptoms or risk factors identified. Fall Risk None identified. Assessment: 17:47 Pain: Denies pain. Respiratory: Airway is patent Respiratory effort is labored. ch5 17:47 Respiratory: Respiratory: Reports shortness of breath. ch5 Vital Signs: 17:21 BP 166 / 99; Pulse 120; Resp 28; Temp 98.9; Pulse Ox 88% on R/A; Weight 86.18 kg; hb Height 5 ft. 3 in. (160.02 cm); Pain 10/10; 17:49 BP 166 / 99; Pulse 110; Resp 18; Temp 98.3; Pulse Ox 98% ; Pain 10/10; ch5 17:21 Body Mass Index 33.66 (86.18 kg, 160.02 cm) hb ED Course: 17:05 Patient arrived in ED. am2 17:06 Jessica Villatoro FNP-C is Private Physician. am2 17:24 Gray Jovel MD is Attending Physician. rn 17:27 Arm band placed on. hb 17:32 Triage completed. vg1 17:47 Callum Duncan, RN is Primary Nurse. ch5 17:47 Bed in low position. Call light in reach. Side rails up X2. ch5 17:47 No provider procedures requiring assistance completed. Inserted saline lock: 20 gauge ch5 in right antecubital area, using aseptic technique. 17:51 Flu Sent. ch5 17:51 COVID-19 : Document "Date of Symptom Onset" if Symptomatic. Sent. ch5 17:51 BMP Sent. ch5 17:51 Blood Culture Adult (2) Sent. ch5 17:51 C-Reactive Protein Sent. ch5 17:51 CXR XRAY Sent. ch5 18:18 CXR XRAY In Process Unspecified. EDMS 18:52 Monster Robertson is Hospitalizing Provider. rn 19:09 CT Chest For PE Angio In Process Unspecified. EDMS 23:11 Patient admitted, IV remains in place. ea Administered Medications: 17:35 Drug: SOLU-Medrol (methylPrednisoLONE) 125 mg Route: IVP; Site: right antecubital; hb Outcome: 18:52 Decision to Hospitalize by Provider. rn 23:09 Admitted to Med/surg accompanied by tech, via stretcher, with chart, Report called to ea Receiving nurse on second floor 23:09 Condition: stable 23:09 Instructed on the need for admit. 23:25 Patient left the ED. em Signatures: Dispatcher [employer] EDNE Allan Marlow RN WALTER em Gray Jovel MD MD rn Baxter, Heather, RN RN Jennifer Rhoades am2 Gracia Meek RN RN ea Garcia, Victoria, RN RN vg1 Callum Duncan, WALTER RN ch5 Corrections: (The following items were deleted from the chart) 17:33 17:28 Chief complaint: Patient states: Since 0700 pt states Right flank pain and LLQ vg1 pain, NV. Stated in August 2020 had hernia repair. Stated at 1300 took Tylenol 3 for pain. Also states has been having urine frequency. [facility] 17:28 Coronavirus screen: Vaccine status: Patient reports receiving the 1st dose of the [facility] Covid vaccine. Client denies travel out of the [place] in the last 14 days. [facility] 17:28 Ebola Screen: Patient negative for fever greater than or equal to 101.5 degrees [facility] Fahrenheit, and additional compatible Ebola Virus Disease symptoms [facility] 17:28 Coronavirus screen: Vaccine status: [place] [id number] 17:28 Initial Sepsis Screen: Does the patient meet any 2 criteria? No. Patient's [facility] initial sepsis screen is negative. Does the patient have a suspected source of infection? No. Patient's initial sepsis screen is negative. [facility] 17:28 Risk Assessment: Do you want to hurt yourself or someone else? Patient reports no [facility] desire to harm self or others. [facility] 17:28 Onset of symptoms was October 20, 2020 [place] [id number] 17:28 Method Of Arrival: Ambulatory [place] [id number] 17:28 BP 118 / 61; Pulse 92bpm; Resp 18bpm; Pulse Ox 98%; Temp 98.5F Oral; 85.73 kg; 1 Height 5 ft. 1 in.; BMI: 35.7; Pain 8/10; [facility] 17:28 Acuity: CONCEPCION 3 [place] [id number] 18:20 17:21 BP 166 / 99; Pulse 120bpm; Resp 28bpm; Temp 98.9F; 86.18 kg; Height 5 ft. 3 in.; hb BMI: 33.6; Pain 10/10; hb
--- NOTE | 2020-10-20 19:27 | RAD REPORT ---
EXAM DESCRIPTION: CT - Chest For Pe Angio - 10/20/2020 7:09 pm CLINICAL HISTORY: DYSPNEA COMPARISON: Chest For Pe Angio dated 02/27/2020; Chest Single View dated 10/20/2020 FINDINGS: Chest Wall: No suspicious thyroid nodules or pathologic lymphadenopathy. Lungs: Poorly defined airspace disease in the lower lobes, left greater than right. Pleura: No significant effusions or pneumothorax. Mediastinum/jason: No pathologic lymphadenopathy. Pulmonary arteries/Aorta: No aortic aneurysm. Enlarged main pulmonary artery which may indicate pulm onary artery hypertension. There is significant motion artifact which limits evaluation of the segmen ale and subsegmental pulmonary arteries. Heart: No significant pericardial effusion. Cardiomegaly. No pericardial effusion. Upper abdomen: Pneumobilia. Bones: No acute abnormality. All CT scans are performed using dose optimization technique as appropriate and may include automated exposure control or mA/KV adjustment according to patient size. IMPRESSION: No central pulmonary embolus. Motion artifact limits evaluation of the more distal branc hes including the segmental and subsegmental pulmonary arteries. Poorly defined airspace disease in t he left greater than right lung bases could reflect atelectasis versus pneumonia/pneumonitis.
--- NOTE | 2020-10-20 22:49 | P.HP ---
Certification for Inpatient Patient admitted to: Inpatient With expected LOS: <2 Midnights Patient will require the following post-hospital care: None Practitioner: I am a practitioner with admitting privileges, knowledge of patient current condition, hospital course, and medical plan of care. Services: Services provided to patient in accordance with Admission requirements found in Title 42 Section 412.3 of the Code of Federal Regulations Patient History Date of Service: 10/20/20 Reason for admission: pneumonia History of Present Illness: Ms. Thornton is a 65 yo F with HTN, Hep C, RLS, anxiety who presents with 1 week of cough productive of green sputum, SOB, and fever. Her sats were 88% on RA upon arrival. She reports fatigue and wheezing. She said she was told she has bronchitis, and her symptoms continue to worsen. WBC 14.1. CT scan shows possible pneumonia. Denies smoking, smoke exposure, and history of asthma. Allergies codeine Allergy (Verified 05/05/16 08:21) Hives Hydrocodone-Acetaminophen Allergy (Mild, Uncoded 03/08/18 18:33) Itching Home Medications: Azithromycin 250 mg PO DAILY 03/08/18 Buspirone HCl [Buspar] 10 mg PO BID 03/08/18 Losartan Potassium 25 mg PO BID 03/08/18 Meloxicam 15 mg PO DAILY 03/08/18 Oseltamivir [Tamiflu] 75 mg PO DAILY 03/08/18 Paroxetine HCl [Paxil] 20 mg PO DAILY 03/08/18 Ropinirole HCl 1 mg PO TID 03/08/18 Albuterol Sulfate [Ventolin Hfa] 8 gm IH Q8HP PRN #1 hfa.aer.ad 03/09/18 Prednisone [Sterapred Ds] 10 mg PO BID #9 tab.ds.pk 03/09/18 - Past Medical/Surgical History Diabetic: No -: Restless legs syndrome -: anxiety -: depression -: hip pain (bilateral) -: hep c -: hypertension -: Hyperlipidemia -: Kidney stone surgey 1994 -: Colostomy as -: Reconstruction of anal opening as Psychosocial/ Personal History: Patient is retired, lives with her - Family History Father -: Heart disease Notes: open heart sx Mother -: Heart disease, Hypertension - Social History Smoking Status: Never smoker Alcohol use: Yes CD- Drugs: No Caffeine use: Yes Place of Residence: Home Review of Systems 10-point ROS is otherwise unremarkable General: Fever, Chills Respiratory: Cough, Shortness of Breath, SOB with Excertion, Sputum, Wheezing Physical Examination - Physical Exam General: Alert, In no apparent distress HEENT: Atraumatic, PERRLA, Mucous membr. moist/pink, EOMI, Sclerae nonicteric Neck: Supple, 2+ carotid pulse no bruit, No LAD, Without JVD or thyroid abnormality Respiratory: Diminished, Expiratory wheezes Cardiovascular: Regular rate/rhythm, Normal S1 S2 Gastrointestinal: Normal bowel sounds, No tenderness Musculoskeletal: No tenderness Integumentary: No rashes Neurological: Normal gait, Normal speech, Normal strength at 5/5 x4 extr, Normal tone, Normal affect Lymphatics: No axilla or inguinal lymphadenopathy - Studies Laboratory Data (last 24 hrs) 10/20/20 17:15: PT 14.2 H, INR 1.23, APTT 34.3 10/20/20 17:15: WBC 14.10 H, Hgb 12.3, Hct 37.0, Plt Count 298 10/20/20 17:15: Sodium 136, Potassium 3.5, BUN 12, Creatinine 0.61, Glucose 108 H, Total Bilirubin 1.7 H, AST 17, ALT 26, Alkaline Phosphatase 114 Assessment and Plan - Problems (Diagnosis) (1) Pneumonia Current Visit: Yes Status: Chronic Qualifiers: Pneumonia type: due to unspecified organism Laterality: unspecified laterality Lung location: unspecified part of lung Qualified Code(s): J18.9 - Pneumonia, unspecified organism (2) RLS (restless legs syndrome) Current Visit: Yes Status: Chronic (3) Hepatitis C Current Visit: Yes Status: Chronic Qualifiers: Viral hepatitis chronicity: chronic Hepatic coma status: without hepatic coma Qualified Code(s): B18.2 - Chronic viral hepatitis C (4) HTN (hypertension) Current Visit: No Status: Chronic Qualifiers: Hypertension type: primary hypertension Qualified Code(s): I10 - Essential (primary) hypertension - Plan continue IV antibiotics, O2 as needed, steroids, and breathing treatments blood and sputum cultures pending reconcile and continue home medications DVT ppx Discharge Plan: Home Plan to discharge in: 48 Hours - Advance Directives Does patient have a Living Will: No Does patient have a Durable POA for Healthcare: No - Code Status/Comfort Care Code Status Assessed: Yes (full code ) Critical Care: No Time Spent Managing Pts Care (In Minutes): 70
[2020-10-21 00:30] VITALS: BMI 33.6
[2020-10-21] MEDS: predniSONE 20 MG TAB PO SCH ×3 (00:59→21:25)
[2020-10-21] MEDS: INSULIN -REGULAR HUMAN 50 UNIT/0.5 ML ML SQ SCH ×5 (00:59→21:00)
[2020-10-21] MEDS: IPRATROPIUM BROM 0.5MG/2.5ML NEB SCH ×5 (00:59→21:20)
[2020-10-21] MEDS ORDERED: ACETAMINOPHEN 500 MG TAB PO PRN (00:59)
[2020-10-21] MEDS ORDERED: ONDANSETRON 4 MG/2 ML VIAL IV PRN (00:59)
[2020-10-21] MEDS: ROPINIROLE HCL 0.25 MG TAB PO SCH ×2 (00:59→21:00)
[2020-10-21] MEDS: ALBUTEROL 2.5 MG/3 ML NEB SOL NEB SCH ×5 (00:59→21:20)
[2020-10-21] MEDS: BENZONATATE 100 MG CAP PO PRN ×2 (01:57→21:25)
[2020-10-21] MEDS: Levofloxacin 750mg IV 750 MG/150 ML BAG IV SCH (01:58)
[2020-10-21 05:08] LABS: Absolute Lymphocytes (CBC) 0.7 K/uL (0.7-4.9); Basophils % 0.1 % (0-1.3); Hematocrit 36.8 % (36.0-45.0); Lymphocytes % 6.7 % (15.3-44.8); MPV 8.2 fL (7.6-11.3); RBC Red Blood Cell Count 3.93 M/uL (3.86-4.86)
[2020-10-21 05:18] LABS: Albumin 2.5 g/dL (3.4-5.0); Bilirubin Total 0.6 mg/dL (0.2-1.0); Magnesium 2.3 mg/dL (1.8-2.4); Phosphorus 2.3 mg/dL (2.5-4.9); Potassium 3.9 mmol/L (3.5-5.1); Protein, Total 8.3 g/dL (6.4-8.2)
[2020-10-21] MEDS ORDERED: IPRATROPIUM BROM 0.5MG/2.5ML ONE (05:39)
[2020-10-21] MEDS ORDERED: ALBUTEROL 2.5 MG/3 ML NEB SOL ONE (05:39)
[2020-10-21] MEDS: POTASS/SODIUM PHOSPHATE 1 PKT POWD.PACK PO SCH ×3 (07:00→09:00)
[2020-10-21] MEDS ORDERED: POTASSIUM CL SA 10 MEQ TAB PO ONE (07:28)
[2020-10-21] MEDS: ENOXAPARIN 40 MG/0.4 ML SQ SCH (08:16)
--- NOTE | 2020-10-21 11:06 | P.PN ---
Subjective Date of Service: 10/21/20 Chief Complaint: pneumonia Subjective: No new changes Review of Systems 10-point ROS is otherwise unremarkable Respiratory: SOB with Excertion Physical Examination - Vital Signs Temperature: 97.9 F Blood Pressure: 124/60 Pulse: 81 Respirations: 18 Pulse Ox (%): 94 - Physical Exam General: Alert, In no apparent distress HEENT: Atraumatic, PERRLA, EOMI Neck: Supple, JVD not distended Respiratory: Clear to auscultation bilaterally, Normal air movement Cardiovascular: Regular rate/rhythm, Normal S1 S2 Gastrointestinal: Normal bowel sounds, No tenderness Musculoskeletal: No tenderness Integumentary: No rashes Neurological: Normal speech, Normal tone, Normal affect Lymphatics: No axilla or inguinal lymphadenopathy - Studies Laboratory Data (last 24 hrs) 10/20/20 17:15: PT 14.2 H, INR 1.23, APTT 34.3 10/20/20 17:15: WBC 14.10 H, Hgb 12.3, Hct 37.0, Plt Count 298 10/20/20 17:15: Sodium 136, Potassium 3.5, BUN 12, Creatinine 0.61, Glucose 108 H, Total Bilirubin 1.7 H, AST 17, ALT 26, Alkaline Phosphatase 114 Assessment & Plan - Problems (Diagnosis) (1) Pneumonia Current Visit: Yes Status: Chronic Plan: continue levaquin Qualifiers: Pneumonia type: due to unspecified organism Laterality: unspecified laterality Lung location: unspecified part of lung Qualified Code(s): J18.9 - Pneumonia, unspecified organism (2) COPD exacerbation Current Visit: No Status: Acute Plan: patient improving. However still having some mild wheezing (3) Creatinine elevation Current Visit: Yes Status: Acute Plan: mild elevations. However will start her on fluids. She did recieve IV contrast Discharge Plan: Home Plan to discharge in: 24 Hours - Code Status/Comfort Care Code Status Assessed: No Critical Care: No Time Spent Managing Pts Care (In Minutes): 20
[2020-10-22] MEDS: Levofloxacin 750mg IV 750 MG/150 ML BAG IV SCH (00:09)
[2020-10-22] MEDS ORDERED: MELATONIN 5 MG TABLET PO PRN (00:19)
[2020-10-22] MEDS: IPRATROPIUM BROM 0.5MG/2.5ML NEB SCH ×2 (01:40→07:57)
[2020-10-22] MEDS: ALBUTEROL 2.5 MG/3 ML NEB SOL NEB SCH ×2 (01:40→07:57)
[2020-10-22 04:32] LABS: Phosphorus 3.5 mg/dL (2.5-4.9); Potassium 3.9 mmol/L (3.5-5.1)
[2020-10-22] MEDS: INSULIN -REGULAR HUMAN 50 UNIT/0.5 ML ML SQ SCH ×2 (07:30→11:30)
[2020-10-22] MEDS: predniSONE 20 MG TAB PO SCH (08:11)
[2020-10-22] MEDS: ENOXAPARIN 40 MG/0.4 ML SQ SCH (08:11)
[2020-10-22 09:48] VITALS: O2SAT 96
--- NOTE | 2020-10-22 12:24 | P.DS ---
Admission Date: 10/20/20 Discharge Date: 10/22/20 Disposition: ROUTINE DISCHARGE Discharge Condition: GOOD Reason for Admission: pneumonia - Problems (1) Pneumonia Current Visit: Yes Status: Chronic Qualifiers: Pneumonia type: due to unspecified organism Laterality: unspecified laterality Lung location: unspecified part of lung Qualified Code(s): J18.9 - Pneumonia, unspecified organism (2) COPD exacerbation Current Visit: No Status: Acute (3) Creatinine elevation Current Visit: Yes Status: Acute Brief History of Present Illness: Patient was admitted for copd exacerbation and possible pneumonia. Hospital Course: currently doing much better sitting up with no oxygen. She has an occasional cough and clear sputum. Will discharge her on levaquin and steroid taper. Thank you for allowing me to take part in her care. Vital Signs/Physical Exam: Temp Pulse Resp BP Pulse Ox 96.9 F 86 15 143/63 H 97 10/22/20 08:00 10/22/20 08:00 10/22/20 08:00 10/22/20 08:00 10/22/20 08:00 General: Alert, In no apparent distress HEENT: Atraumatic, PERRLA, EOMI Neck: Supple, JVD not distended Respiratory: Clear to auscultation bilaterally, Normal air movement Cardiovascular: Regular rate/rhythm, Normal S1 S2 Gastrointestinal: Normal bowel sounds, No tenderness Musculoskeletal: No tenderness Integumentary: No rashes Neurological: Normal speech, Normal tone, Normal affect Lymphatics: No axilla or inguinal lymphadenopathy Laboratory Data at Discharge: WBC 10.80 K/uL (4.3-10.9) D 10/21/20 04:42 Hgb 12.2 g/dL (12.0-15.0) 10/21/20 04:42 Hct 36.8 % (36.0-45.0) 10/21/20 04:42 Plt Count 296 K/uL (152-406) 10/21/20 04:42 PT 14.2 SECONDS (9.5-12.5) H 10/20/20 17:15 INR 1.23 10/20/20 17:15 APTT 34.3 SECONDS (24.3-36.9) 10/20/20 17:15 Sodium 141 mmol/L (136-145) 10/22/20 03:50 Potassium 3.9 mmol/L (3.5-5.1) 10/22/20 03:50 BUN 30 mg/dL (7-18) H 10/22/20 03:50 Creatinine 0.66 mg/dL (0.55-1.3) 10/22/20 03:50 Glucose 159 mg/dL (74-106) H 10/22/20 03:50 Phosphorus 3.5 mg/dL (2.5-4.9) D 10/22/20 03:50 Magnesium 2.3 mg/dL (1.8-2.4) 10/21/20 04:42 Total Bilirubin 0.6 mg/dL (0.2-1.0) 10/21/20 04:42 AST 17 U/L (15-37) 10/21/20 04:42 ALT 26 U/L (12-78) 10/21/20 04:42 Alkaline Phosphatase 110 U/L (45-117) 10/21/20 04:42 Home Medications: Losartan Potassium 25 mg PO BID 03/08/18 Paroxetine HCl [Paxil] 20 mg PO DAILY 03/08/18 Ropinirole HCl 1 mg PO TID 03/08/18 Albuterol Sulfate [Ventolin Hfa] 8 gm IH Q8HP PRN #1 hfa.aer.ad 03/09/18 Prednisone [Sterapred Ds] 10 mg PO BID #9 tab.ds.pk 03/09/18 Levofloxacin [Levaquin] 500 mg PO DAILY 5 Days #5 tablet 10/22/20 Prednisone [Sterapred Ds] 10 mg PO BID 9 Days #21 tab.ds.pk 10/22/20 New Medications: Levofloxacin [Levaquin] 500 mg PO DAILY 5 Days #5 tablet Prednisone [Sterapred Ds] 10 mg PO BID 9 Days #21 tab.ds.pk Diet: Regular Activity: Ad trevin Followup: Jessica Villatoro NP [Primary Care Provider] - Physician Review: Patient Assessed, Agree with Above Assessment and Plan Time spent managing pt's care (in minutes): 30
[2020-10-22 12:29] VITALS: BP 143/67; TEMP 97
[2020-10-22] MEDS ORDERED: levoFLOXacin 750 MG TAB PO SCH (21:00)
== END 2020-10-22 13:55 | disposition home or self-care (01) | DRG 190 ==
LOC: ER 17:04 → ERHOLD 20:52 → 2ND 23:07
PROVIDERS: ADMIT Internal Medicine; ATTEND Internal Medicine
DX: J44.0 Chronic obstructive pulmonary disease with (acute) lower respiratory infection (principal); J18.9 Pneumonia, unspecified organism; J44.1 Chronic obstructive pulmonary disease with (acute) exacerbation; R79.89 Other specified abnormal findings of blood chemistry; R09.02 Hypoxemia; I10 Essential (primary) hypertension; G25.81 Restless legs syndrome; F41.9 Anxiety disorder, unspecified; B18.2 Chronic viral hepatitis C; Z20.822 Contact with and (suspected) exposure to COVID-19
CPT/HCPCS: 0240U; 36415; 71045; 71275; 80048; 80053; 80076; 82728; 82947; 83605; 83735; 84100; 84145; 84484; 85025; 85379; 85610; 85730; 86140; 87040; 87070; 87184; 87205; 93005; 94640; 94760; 96374; 99285; J1650; J2930; J7512; Q9967